=== PATIENT | female | born 1970 | race Caucasian/White ===

== ENCOUNTER 2017-05-11 12:44 | Emergency (ER) | payer OTHER ==
--- NOTE | 2017-05-11 13:24 | UC ---
Upper Extremity HPI - HPI Summary HPI Summary: Pt presents with upper back pain and right shoulder pain that started 4 days ago. She tells me that 4 days ago she woke up and had upper back pain and right shoulder pain. Denies injury. She has not been using her right arm much due to this pain. She tells me she has a history of low back pain and sees a neurosurgeon in [place] for this, but no history of cervical or shoulder pain. She is currently taking neurontin, tramadol, zanaflex, and meloxicam for pain in her lower back, but these are not helping her current upper back/shoulder discomfort. She also complains of right elbow pain, but feels this could be nerve related from "something in her neck". She is experiencing numbness and tingling down her right arm. Denies fever, chills, SOB, chest pain, headache, or dizziness. - History of Current Complaint Stated Complaint: RIGHT ARM COMPLAINT Time Seen by Provider: 05/11/17 13:23 Hx Obtained From: Patient Hx Last Menstrual Period: 3yrs ?: No Onset/Duration: Gradual Onset Severity Initially: Moderate Severity Currently: Severe Pain Intensity: 8 Pain Scale Used: 0-10 Numeric Character: Sharp Aggravating Factor(s): Movement, Lifting, Flexion, Extension, Internal/External Rotation, Abduction, Adduction Alleviating Factor(s): Nothing - Allergies/Home Medications Allergies/Adverse Reactions: Allergies Allergy/AdvReac Type Severity Reaction Status Date / Time No Known Allergies Allergy Verified 05/11/17 13:25 Home Medications: Home Medications FLUoxetine CAP* [PROzac CAP*] 40 mg PO BEDTIME 05/11/17 [History Confirmed 05/11] Gabapentin CAP(*) [Neurontin 100 mg CAP(*)] 100 mg PO TID 05/11/17 [History Confirmed 05/11/17] tiZANidine TAB* [Zanaflex TAB*] 2 mg PO TID PRN 05/11/17 [History Confirmed 11/20] traZODone TAB* [Desyrel TAB*] 50 mg PO BEDTIME 05/11/17 [History Confirmed 05/11] PMH/Surg Hx/FS Hx/Imm Hx - Additional Past Medical History Additional PMH: Low back pain Previously Healthy: Yes - Surgical History Surgical History: Yes Surgery Procedure, Year, and Place: APPY. PARTIAL HYSTERECTOMY. LEFT OOPHERECTOMY. KNEE MENISCUS REPAIR--RIGHT. CARPAL TUNNEL--RIGHT WRIST - Family History Known Family History: Positive: Unknown - Social History Alcohol Use: None Substance Use Type: None Smoking Status (MU): Current Every Day Smoker Type: Cigarettes Amount Used/How Often: 4 CIGS PER DAY Length of Time of Smoking/Using Tobacco: 28 YRS Have You Smoked in the Last Year: Yes Cessation Counseling: Counseled 3+Min - 10 Min Review of Systems Constitutional: Negative Skin: Negative Eyes: Negative ENT: Negative Respiratory: Negative Cardiovascular: Negative Musculoskeletal: Decreased ROM - Right shoulder, Other: - Pain right shoulder and elbow. Pain upper back. Neurological: Weakness - Right arm, Paresthesia - Right arm, Numbness - Right arm Psychological: Negative All Other Systems Reviewed And Are Negative: Yes Physical Exam Triage Information Reviewed: Yes Completion Of Physical Exam Limited Due To: Other - Pain. Appearance: Well-Appearing, Well-Nourished Vital Signs Reviewed: Yes Neck: Positive: Supple, No Lymphadenopathy, Other: - FROM. NTTP. No cervical tenderness. Respiratory: Positive: Chest non-tender, Lungs clear, Normal breath sounds, No respiratory distress, No accessory muscle use Cardiovascular: Positive: RRR, No Murmur, Pulses Normal Musculoskeletal: Positive: No Edema, Strength Limited @ - Right shoulder 3/5 compared to left., ROM Limited @ - Right shoulder: Can flex to 90deg before pain. Passive motion to 110deg., Other: - Right shoulder: No edema or obvious bony deformities. Positive apprehension, empty can, enriquez-tati, near, o lobo, and yergason tests - pain with every test in varying anatomical locations of the right shoulder. Positive spurlings test. Positive tinel sign in right cubital tunnel. 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 FROM right wrist and all digits. TTP over right trapezius with multiple trigger points. Neurological: Positive: Alert, Muscle Tone Normal, Other: - Sensations intact C4 -T1 right UE. Psychological: Positive: Age Appropriate Behavior Skin: Negative: rashes, significant lesion(s) Upper Extremity Course/Dx - Course Course Of Treatment: Shoulder and cerivcal XR today: Osteoarthritis and DEGENERATIVE DISC DISEASE AND OSTEOARTHRITIS MOST PRONOUNCED AT C5-C6 AND C6- C7. Pt is currently taking all the appropriate pain medications for this condition. She would like to try a sling for a few days to see if this improves her pain. She would also like a referral to a new neurosurgeon as her current one in [place] is not returning her calls. - Differential Dx/Diagnosis Differential Diagnosis/HQI/PQRI: Strain, Sprain Provider Diagnoses: Cervical radiculopathy. Right shoulder pain. Neck pain Discharge - Discharge Plan Condition: Stable Disposition: HOME Patient Education Materials: Cervical Strain (ED), Neck Pain (ED) Referrals: Tremaine Munson [Primary Care Provider] - Eleanor Parker MD [Medical Doctor] - As Soon As Possible Additional Instructions: If you develop a fever, SOB, chest pain, new or worsening symptoms - please call your PCP or go to the ED. Please use the shoulder sling if you are active and outdoors. Please remove the sling and use your shoulder/arm as tolerated when at home. Please call the number below to schedule an appointment with our neurosurgeon RUTH.
[2017-05-11 13:39] VITALS: BP 129/72
--- NOTE | 2017-05-11 14:18 | RAD ---
HISTORY: Right shoulder pain COMPARISONS: June 05, 2014 VIEWS: 4, Frontal internal rotation, external rotation, outlet, and axillary views of the right shoulder FINDINGS: BONE DENSITY: Normal. BONES: There is no displaced fracture. JOINTS: There is moderate osteoarthritis of the right AC joint ALIGNMENT: There is no dislocation. SOFT TISSUES: Unremarkable. OTHER FINDINGS: None. IMPRESSION: OSTEOARTHRITIS. NO ACUTE OSSEOUS INJURY. IF SYMPTOMS PERSIST, RECOMMEND REPEAT IMAGING.
--- NOTE | 2017-05-11 14:20 | RAD ---
HISTORY: Pain, right arm pain, right shoulder pain COMPARISONS: June 05, 2014 VIEWS: 5, Frontal, lateral, open-mouth odontoid, and bilateral oblique views of the cervical spine. FINDINGS: The cervical spine is visualized from the skull base through C7-T1. ALIGNMENT: There is straightening of the normal cervical lordosis. VERTEBRAL BODIES: There is anterolateral marginal osteophyte formation at C5-C6 and C6-C7. JOINTS: There is mild diffuse uncovertebral and facet osteoarthritis. There is no significant osseous neural foraminal narrowing on the left on the oblique views. There is moderate right neural foraminal narrowing at C6-C7. Positioning. INTERVERTEBRAL DISCS: There is diffuse loss of intervertebral disc height. SOFT TISSUE: The prevertebral soft tissues are normal. OTHER: The skull base is normal. The lung apices are clear. There has been progression compared to June 05, 2014 IMPRESSION: DEGENERATIVE DISC DISEASE AND OSTEOARTHRITIS MOST PRONOUNCED AT C5-C6 AND C6-C7
== END 2017-05-11 14:45 | disposition home or self-care (01) ==
LOC: UCCORT 12:44
DX: M54.12 Radiculopathy, cervical region (principal); M25.511 Pain in right shoulder; M54.2 Cervicalgia; Z90.711 Acquired absence of uterus with remaining cervical stump; Z90.721 Acquired absence of ovaries, unilateral; Z71.6 Tobacco abuse counseling; F17.210 Nicotine dependence, cigarettes, uncomplicated
CPT/HCPCS: 72050; 99212; G0463

== ENCOUNTER 2017-08-27 11:07 | Emergency (ER) | payer OTHER ==
[2017-08-27 11:55] VITALS: BP 127/66
--- NOTE | 2017-08-27 12:38 | UC ---
Complaint Female HPI - HPI Summary HPI Summary: Pt reports that she has had recent c/o of vaginal bleeding since beginning new second job and since have hysterectomy. Pt is concerned that she may have a UTI. Pt c/o frequency, urgency and pelvic discomfort. - History Of Current Complaint Chief Complaint: UCGU Stated Complaint: URINARY/BACK PAIN Time Seen by Provider: 08/27/17 11:57 Hx Obtained From: Patient Hx Last Menstrual Period: 3yrs ?: No Onset/Duration: Gradual Onset, Lasting Days, Still Present Timing: Constant Severity Initially: Mild Severity Currently: Mild Pain Intensity: 9 Character: Dull, Burning Aggravating Factor(s): Urination Alleviating Factor(s): Nothing Associated Signs And Symptoms: Positive: Back Pain, Vaginal Bleeding/Discharge - Risk Factors Ectopic Risk Factor: Prior Pelvic Surgery Ovarian Torsion Risk Factor: Hysterectomy - Allergies/Home Medications Allergies/Adverse Reactions: Allergies Allergy/AdvReac Type Severity Reaction Status Date / Time No Known Allergies Allergy Verified 05/11/17 13:25 PMH/Surg Hx/FS Hx/Imm Hx Previously Healthy: Yes - Surgical History Surgical History: Yes Surgery Procedure, Year, and Place: APPY. TOTAL HYSTERECTOMY. LEFT OOPHERECTOMY. KNEE MENISCUS REPAIR--RIGHT. CARPAL TUNNEL--RIGHT WRIST. bladder sling - Family History Known Family History: Positive: Unknown - Social History Occupation: Employed Full-time Lives: With Family Alcohol Use: None Substance Use Type: None Smoking Status (MU): Current Every Day Smoker Type: Cigarettes Amount Used/How Often: 1/2 PPD Length of Time of Smoking/Using Tobacco: 28 YRS Have You Smoked in the Last Year: Yes When Did the Patient Quit Smoking/Using Tobacco: 6 DAYS AGO Household Exposure Type: Cigarettes Review of Systems Constitutional: Negative Skin: Negative Eyes: Negative ENT: Negative Respiratory: Negative Cardiovascular: Negative Gastrointestinal: Negative Genitourinary: Frequency, Urgency Motor: Negative Neurovascular: Negative Musculoskeletal: Negative Neurological: Negative Psychological: Negative Is Patient Immunocompromised?: No All Other Systems Reviewed And Are Negative: Yes Physical Exam Triage Information Reviewed: Yes Appearance: Well-Appearing Vital Signs: Initial Vital Signs Temp 98.3 F 08/27/17 11:43 Pulse 68 08/27/17 11:43 Resp 16 08/27/17 11:43 BP 127/66 08/27/17 11:43 Pulse Ox 99 08/27/17 11:43 Vital Signs Reviewed: Yes Eye Exam: Normal ENT Exam: Normal Neck exam: Normal Respiratory Exam: Normal Cardiovascular Exam: Normal Abdominal Exam: Normal Musculoskeletal Exam: Normal Neurological Exam: Normal Psychological Exam: Normal Skin Exam: Normal Complaint Female Dx - Differential Dx/Diagnosis Differential Diagnosis/HQI/PQRI: Urinary Tract Infection, Other - dysuria Provider Diagnoses: dysuria Discharge - Sign-Out/Discharge Documenting (check all that apply): Discharge - Discharge Plan Condition: Stable Disposition: HOME Prescriptions: Cephalexin CAP* [Keflex 500 CAP*] 500 mg PO Q8H #21 cap Phenazopyridine TAB* [Pyridium 100 mg TAB*] 100 mg PO Q8H #12 tab Patient Education Materials: Dysuria (ED) Forms: *Work Release Referrals: SURAJ Montez [Primary Care Provider] - Additional Instructions: Please follow up with your OB-Rn Case Mgr provider as soon as possible. [facility] [address] Manpreet Ceja [address] [place] [address] Appointment Hours: 7am to 4:30pm Mon-Fri Office Hours: 8am to 5pm Mon Fri - Billing Disposition and Condition Condition: STABLE Disposition: HOME
== END 2017-08-27 12:53 | disposition home or self-care (01) ==
LOC: UCCORT 11:07
DX: R30.0 Dysuria (principal); Z87.891 Personal history of nicotine dependence
CPT/HCPCS: 81003; 99212; G0463

== ENCOUNTER 2017-12-24 12:06 | Emergency (ER) | payer OTHER ==
[2017-12-24 12:46] VITALS: BP 121/72
--- NOTE | 2017-12-24 12:49 | UC ---
UC General HPI - HPI Summary HPI Summary: pt c/o a sore throat for 1 week and a swollen tender gland in her L side of neck. she reports a subjective fever. the past 3 days, she has had about 3 bouts of watery diarrhea daily and some nausea. no blood in stool, sick contacts , travel hx, recent antibiotic use or IBD. also no abdominal pain. - History of Current Complaint Chief Complaint: UCGI Stated Complaint: DIARRHEA, ST Time Seen by Provider: 12/24/17 12:43 Hx Obtained From: Patient Hx Last Menstrual Period: 3yrs Onset/Duration: Gradual Onset Aggravating: nothing Alleviating: nothing Associated Signs & Symptoms: Positive: Diarrhea, Fever, Nausea. Negative: Abdominal Pain, Vomiting - Allergy/Home Medications Allergies/Adverse Reactions: Allergies Allergy/AdvReac Type Severity Reaction Status Date / Time No Known Allergies Allergy Verified 12/24/17 12:39 PMH/Surg Hx/FS Hx/Imm Hx - Additional Past Medical History Additional PMH: insomnia. chronic back pain Psychological History: Anxiety, Depression - Surgical History Surgical History: Yes Surgery Procedure, Year, and Place: APPY. TOTAL HYSTERECTOMY. LEFT OOPHERECTOMY. KNEE MENISCUS REPAIR--RIGHT. CARPAL TUNNEL--RIGHT WRIST. bladder sling - Family History Known Family History: Positive: Unknown - Social History Occupation: Employed Full-time Alcohol Use: None Substance Use Type: None Smoking Status (MU): Current Every Day Smoker Type: Cigarettes Amount Used/How Often: 1/2 PPD Length of Time of Smoking/Using Tobacco: 28 YRS Have You Smoked in the Last Year: Yes When Did the Patient Quit Smoking/Using Tobacco: 6 DAYS AGO Household Exposure Type: Cigarettes - Immunization History Vaccination Up to Date: Yes Review of Systems Constitutional: Fever Skin: Negative Eyes: Negative ENT: Sore Throat Respiratory: Negative Cardiovascular: Negative Gastrointestinal: Diarrhea, Nausea Genitourinary: Negative Motor: Negative Neurovascular: Negative Musculoskeletal: Negative Neurological: Negative Psychological: Negative Is Patient Immunocompromised?: No All Other Systems Reviewed And Are Negative: Yes Physical Exam Triage Information Reviewed: Yes Appearance: Well-Appearing Vital Signs Reviewed: Yes Eyes: Positive: Conjunctiva Clear ENT: Positive: Pharyngeal erythema, TMs normal, Uvula midline, Other - No stridor. Negative: Nasal congestion, Nasal drainage, Trismus, Muffled voice, Hoarse voice Neck: Positive: Supple, Tenderness @ - L anterior cervical node, Enlarged Nodes @ - L anterior cervical node Respiratory: Positive: Lungs clear, Normal breath sounds Cardiovascular: Positive: RRR, No Murmur Abdomen Description: Positive: Nontender, No Organomegaly, Soft Bowel Sounds: Positive: Present Musculoskeletal: Positive: ROM Intact Neurological: Positive: Alert Psychological: Positive: Age Appropriate Behavior Skin Exam: Normal Course/Dx - Course Course Of Treatment: Nontoxic. Mild erythema of the pharynx on exam the left anterior cervical adenopathy; however, rapid strep is negative. Given sore throat of 7 days we will send throat culture. No concern for abscess. Given the rapid strep is negative, treatment is supportive at this time. Patient does have several year history of smoking thus need for close follow-up to ensure resolution of sore throat and swollen gland stressed. Again patient is nontoxic. She has no acute abdomen. She has no risk for traveler's diarrhea or C. difficile colitis. Since the diarrhea is only been for 3 days no indication for cultures. Given the associated nausea and sore throat this is most likely part of a viral syndrome; however, again the need for close follow up recheck with stressed. - Differential Dx - Multi-Symptom Provider Diagnoses: Pharyngitis. Nausea. Diarrhea. Discharge - Sign-Out/Discharge Documenting (check all that apply): Patient Departure - Discharge Plan Condition: Stable Disposition: HOME Patient Education Materials: Pharyngitis (ED), Acute Diarrhea (ED) Referrals: Claudia Rosas PA [Primary Care Provider] - 5 Days - Billing Disposition and Condition Condition: STABLE Disposition: Home
== END 2017-12-24 13:08 | disposition home or self-care (01) ==
LOC: UCCORT 12:06
DX: J02.9 Acute pharyngitis, unspecified (principal); R11.0 Nausea; R19.7 Diarrhea, unspecified; Z87.891 Personal history of nicotine dependence
CPT/HCPCS: 87070; 87077; 87186; 87651; 99211; G0463

== ENCOUNTER 2019-01-02 11:28 | Emergency (ER) | payer OTHER ==
--- OUTSIDE RECORDS SUMMARY | 2019-01-02 12:31 | XMS REPORT | Continuity of Care Document ---
:1970 External Reference #:[id number] Author Name Poncho Garsia N.P. Address [address] [place] [address] Care Team Providers Name Role Phone Jose Elmore MD Care Team Information Postdoctoral Research Associate Unavailable Payers Date Identification Numbers Payment Provider Subscriber Policy Number: [id number] [facility] Santosh Walton PayID: [id number] [address] [place] [address] Effective: 2016 Policy Number: [id number] [facility] Tamia Walton Expires: 2017 [address] [address] [place] [address] Problems Active Problems Provider Date Arthralgia of the lower leg Tremaine Shukla BUSINESS UNIT DIRECTOR Onset: 07/18/2013 Tobacco user Tremaine Shukla BUSINESS UNIT DIRECTOR Onset: 08/01/2013 Recurrent depression Margareth Butts FNP Onset: 01/25/2014 Anxiety Margareth Butts FNP Onset: 01/25/2014 Seasonal allergic rhinitis Margareth Butts FNP Onset: 01/25/2014 Insomnia Margareth Butts FNP Onset: 04/01/2014 Atopic dermatitis Jose Elmore M.D. Onset: 09/02/2014 Endometriosis of pelvic peritoneum Jose Elmore M.D. Onset: 09/02/2014 Vaginitis and vulvovaginitis Jose Elmore M.D. Onset: 09/02/2014 Inactive Problems Nonspecific abdominal symptom Tremaine Shukla BUSINESS UNIT DIRECTOR Onset: 08/01/2013 Inactive: 01/25/2014 Resolved Problems Polyuria Tremaine Shukla BUSINESS UNIT DIRECTOR Onset: 07/18/2013 Resolved: 08/01/2013 Family History Date Family Member(s) Observation Comments Father 67 Father Diabetes Father Hypertension Mother 69 Mother Breast Cancer SURVIVOR Children 2 First Daughter 19 First Daughter No Current Problems Second Daughter 22 Second Daughter No Current Problems First Brother Age is Unknown First Brother No Current Problems First Sister Age is Unknown First Sister No Current Problems Social History Type Date Description Comments Sex Unknown Marital Status Has been 1 time Occupation Occupation [employer] WORK Work Status Full-Time Employment ETOH Use Denies alcohol use Tobacco Use Start: Unknown Patient is a current SMOKES LESS THAN HALF smoker, smokes every A PACK A DAY day Recreational Drug Use Former Drug User TRIED MARIJUANA AT AGE 16 Smoking Status Reviewed: 11/29/18 Patient is a current SMOKES LESS THAN HALF smoker, smokes every A PACK A DAY day Allergies, Adverse Reactions, Alerts Description No Known Drug Allergies Medications Active Medications SIG Qnty Indications Ordering Date Provider Claritin 1 by mouth every 30caps H69.83 Jose Elmore, 12/27/2018 10mg Capsules day M.D. Gentamicin Sulfate 2 drop both eyes 5ml H00.025 Jose Elmore, 2018 0.3% four times a day M.D. Solution X10 Days Nicotrol inhale one by 168units F17.210 Jose Elmore, 11/29/2018 10mg Inhaler mouth every 4 M.D. hours as needed Nortriptyline HCL 1 cap by mouth 30caps M51.37 Jose Elmore, 11/29/2018 75mg at bedtime M.D. Capsules Sumatriptan Succinate Take 1 Tablet By 14tabs G43.101 Jose Elmore, Mouth as Needed M.D. 50mg Tablets For Headache May Repeat 1 Time If No Relief In 2 Hours Ondansetron HCL take one tablet 30tabs R11.0 Jose Elmore, 10/16/2018 4mg by mouth every 4 M.D. Tablets hours as needed (maximum daily dose=6) Proair HFA inhale 2 puffs 17gm J20.9 Jose Elmore, 07/17/2018 108(90Base) by mouth every 4 M.D. mcg/Act Aerosol hours if needed Pennsaid apply to elbow M54.2 Jose Elmore, 06/13/2018 2% Solution and knees bid M.D. M25.569 M79.639 Gabapentin 1 tab by mouth 90tabs M54.2 [facility] oumou Martinez., 06/13/2018 600mg Tablets three times a day M.D. M79.639 M79.606 Yuvafem 1 vaginal every day 30tabs N89.8 [facility] , 06/13/2018 10mcg Tablets M.D. Omeprazole 1 by mouth every day 30caps K21.0 [facility] , 06/13/[address] Fluoxetine HCL take 2 capsules at 180caps F41.9 [facility], 2016 20mg bedtime M.D. Capsules F33.9 Tramadol HCL 1 tab by mouth bid 60tabs M51.37 [facility] , 12/30/2016 50mg Tablets as needed M.D. M79.639 M54.2 Tizanidine HCL 1 by mouth three 90tabs M25.519 [facility], 11/19/2016 4mg Tablets times a day as M.D. needed M79.639 M54.2 History Medications Azithromycin 1 tab by mouth 10tabs J20.9 [facility] 12/04/2018 - 500mg every day x 10 M., M.D. 12/03/2018 Tablets days Azithromycin z jd uad 6tabs J20.9 [facility] 12/04/2018 - 250mg M., M.D. 12/25/2018 Tablets Claritin 1 by mouth every 30tabs J02.9 [facility] 12/04/2018 - 10mg Tablets day M., M.D. 12/25/2018 Amoxicillin/Clavulan 1 tab by mouth 30tabs H66.93 [facility] 10/16/2018 - ate Potassium twice a day M., M.D. 11/29/2018 875-125mg Tablets Ibuprofen take one tablet by 90tabs G43.101 [facility] 10/16/2018 - 600mg mouth three times M., M.D. 12/25/2018 Tablets daily with food as Needed For Headache Imitrex one tab by mouth 14tabs G43.101 [facility] 10/16/2018 - 50mg Tablets as needed M., M.D. 10/26/2018 headache, may repeat x 1 if no relief in 2 hours. Amoxicillin/Clavulan 1 tab by mouth 30tabs J20.9 [facility], [facility] 07/26/2018 - ate Potassium twice a day M., M.D. 10/15/2018 875-125mg Tablets Amoxicillin/Clavulan 5ml by mouth twice 125ml H66.93 [facility], [facility] 2018 - ate Potassium a day x 7 days M., M.D. 10/15/2018 strawberry 600-42.9mg/5ML flavoring if Suspension Rec possible Trazodone HCL 1 tab by mouth 30tabs G47.00 [facility], [facility] 06/13/2018 - 50mg every night M., M.D. 11/28/2018 Tablets Prednisone 3 tab by mouth 18tabs [facility], [facility] 05/16/2018 - 20mg daily 3 days, then M., M.D. 05/25/2018 Tablets 2 tab daily x 3 d , then 1 tab daily 3d Azithromycin z jd uad 6tabs [facility] 03/23/2018 - 250mg M., M.D. 03/27/2018 Tablets Cipro 1 tab by mouth 20tabs [facility] 03/10/2018 - 500mg Tablets twice a day M., M.D. 03/20/2018 Prednisone 2 tab by mouth 8tabs [facility] 03/10/2018 - 20mg daily 4 days M., M.D. 03/16/2018 Tablets Prednisone 2 tab by mouth 8tabs [facility] 03/07/2018 - 20mg daily 4 days M., M.D. 03/10/2018 Tablets Amoxicillin 2 by mouth twice a 40tabs [facility] 03/07/2018 - 500mg day M., M.D. 03/10/2018 Tablets Meloxicam take one tablet by 90tabs M54.5 [facility] 05/02/2017 - 15mg mouth once daily M., M.D. 12/26/2018 Tablets M25.519 M54.2 Fluticasone use two spray(s) 16gm [facility] 05/02/2017 - Propionate in each nostril M., M.D. 10/15/2018 50mcg/Act once daily as Suspension needed for allergy relief Ciprofloxacin HCL tab one by mouth 20tabs [facility] 04/01/2017 - 500mg twice a day M., M.D. 04/11/2017 Tablets Cheratussin ac teaspoon 1 every 4 150units [facility] 04/01/2017 - hours as needed M., M.D. 04/11/2017 100-10mg/5ML Syrup Azithromycin Take Two Tablets 6tabs [facility] 03/09/2017 - 250mg By Mouth On Day 1, M., M.D. 03/14/2017 Tablets And Then Take One Tablet By Mouth Once A Day For Days 2-5 Azithromycin take two tablets 6tabs H66.92 [facility] 02/28/2017 - 250mg by mouth as one M., M.D. 03/05/2017 Tablets dose on the first day then take one daily thereafter x 4 days Amoxicillin 2 by mouth twice a 40tabs [facility] 11/11/2016 - 500mg day M., M.D. 11/21/2016 Tablets Prednisone 2 tab by mouth 20tabs [facility] 11/11/2016 - 20mg Tablets daily 4 M., M.D. 11/27/2016 days,30x3d,20x2d,1 0x7d Prozac Take 2 Capsules AT 180caps F41.9 [facility] 10/25/2016 - 20mg Capsules Bedtime M., M.D. 01/24/2017 F33.9 Prednisone 2 tab by mouth 8tabs [facility] 08/24/2016 - 20mg Tablets daily 4 days M., M.D. 08/27/2016 Amoxicillin 2 by mouth 40tabs [facility] 08/24/2016 - 500mg Tablets twice a day M., M.D. 09/02/2016 Prednisone 3 tab by mouth 18tabs M25.562 [facility] 05/27/2016 - 20mg Tablets daily 3 days, M., M.D. 06/03/2016 then 2 tab daily x 3 d , then 1 tab daily 3d Hydrocodone-Acetaminophen 1-2 tab by 60tabs M25.562 [facility] 2015 - mouth every 4 M., M.D. 06/14/2016 7.5-325mg Tablets hours as needed Azithromycin 1 by mouth 7tabs [facility], [facility] 03/18/2016 - 500mg Tablets every day M., M.D. 03/25/2016 Prednisone 2 tab by mouth 20tabs [facility] 03/18/2016 - 20mg Tablets daily 4 M., M.D. 04/03/2016 days,30x3d,20x2 d,10x7d Cheratussin ac 2 teaspoon by 473ml [facility] 03/18/2016 - 100-10mg/5ML Syrup mouth every 4 M., M.D. 04/03/2016 hours as needed Biaxin 1 by mouth 20tabs J01.80 [facility] 03/08/2016 - 500mg Tablets twice a day M., M.D. 03/18/2016 Methylprednisolone use as directed 1pak R06.2 [facility] 03/08/2016 - 4mg TBPK on package M., M.D. 06/14/2016 Meloxicam take one tablet 60tabs M54.5 [facility] 02/23/2016 - 7.5mg Tablets by mouth twice M., M.D. 05/02/2017 daily M25.519 M54.2 Prednisone 2 tab by mouth 8tabs [facility] 11/21/2015 - 20mg Tablets daily 4 days M., M.D. 11/25/2015 Amoxicillin 2 by mouth twice 40tabs [facility], [facility] 11/21/2015 - 500mg a day M., M.D. 12/01/2015 Tablets Amoxicillin 2 by mouth twice 40tabs [facility] 05/22/2015 - 500mg a day M., M.DDavidson 11/20/2015 Tablets Flonase Allergy two sprays per 16gm J30.9 [facility] 05/22/2015 - Relief nostril once a M.VenkatDDavidson 01/14/2017 50mcg/Act day as needed for Suspension allergy relief R09.81 Meloxicam 1 by mouth 90tabs M25.579 [facility] MDavidson, 05/22/2015 - 15mg every day M.DDavidson 05/14/2016 Tablets M54.5 M54.2 Tobramycin 2 drops both eyes 10ml H10.45 [facility], [facility] 05/22/2015 - 0.3% three times a day M.Michelle.DDavidson 05/29/2015 Solution Tobramycin 2 drops both eyes 5ml 372.39 [facility], [facility] 10/10/2014 - 0.3% three times a day M.VenkatDDavidson 10/15/2014 Solution Estrace insert 06/07 42.500gm N76.1 [facility] 09/05/2014 - 0.1mg/GM applicator MVenkat CedeñoDDavidson 01/14/2017 Cream vaginallytiw Estradiol Apply 06/07 Applicator 616.10 [facility] 09/04/2014 - 0.5mg Tiw M.VenkatDDavidson 09/04/2014 Tablets Chantix 1 by mouth twice a 60tabs 305.1 [facility] 09/02/2014 - 1mg day M.VenkatDDavidson 11/02/2014 Tablets Estrogel apply 06/07 applicator 50gm 616.10 [facility] 09/02/2014 - tiw M. M.DDavidson 09/05/2014 0.75mg/1.25 GM (0.06%) Gel Diflucan 1 by mouth twice a 60tabs 616.10 [facility] 09/02/2014 - 100mg day M.VenkatDDavidson 10/03/2014 Tablets Continue Cervical two-three times a [facility] 07/19/2014 - Neck PT week modalities as Dennis Robledo 06/14/2016 needed dx+ cervicalgia Tizanidine HCL 1 by mouth three 90tabs M54.2 [facility] 06/17/2014 - times a day as M., M.D. 06/14/2016 4mg Tablets needed M25.519 M79.639 Hydrocodone-Acetaminophen 1-2 tab by 45tabs M54.2 [facility] 06/17/2014 - 5-325mg Tablets mouth every M., M.D. 2015 4 hours as needed M25.519 M79.643 Dextromethorphan-Guaifenesin Take 2 tsp by 200ml [facility] 03/27/2014 - 20-200mg/10ML mouth every [facility] 06/09/2014 Solution 4hrs as needed Aurodex 4 drops 1bottle 381. [facility] 02/21/2014 - 5.4-1.4% Solution instilled [facility] 03/06/2014 into affected ear up to 4 times a day as needed. once instilled, insert cotton ball into ear Amoxicillin take 1 tablet 20tabs 381. [facility] 02/21/2014 - 875mg Tablets by mouth two 00 [facility] 03/06/2014 times a day for 10 days Out Of Work Please excuse Benjamín 02/21/2014 - Tamia from [facility] 06/09/2014 work on 02/20 and 02/21/2014 for an illness. Thanks Meloxicam 1 by mouth 30tabs M25. Jose Elmore 01/25/2014 - 7.5mg Tablets every day 569 M., M.D. 05/22/2015 M25.579 Trazodone HCL Take 1-2 tablets 90tabs 300.00 Margareth Butts 01/25/2014 - at night [facility] 01/14/2015 50mg Tablets 296.30 780.52 Flonase two sprays per 16gm J30.9 Jose Elmore 01/04/2014 - 50mcg/Act nostril once a M.D. 05/22/2015 Suspension day as needed for allergy relief R09.81 Metronidazole 1 tab po bid x7 20tabs 616.10 Jose Elmore 10/02/2013 - 500mg days M., M.D. 10/09/2013 Tablets Diflucan 1 tab po today 2tabs 616.10 Jose Elmore 09/28/2013 - 150mg Tablets and repeat in 3 M., M.D. 10/01/2013 days Trazodone HCL 1 tab by mouth 300.00 Unknown - 20mg every night 01/25/2014 Tablets Meloxicam 1 by mouth 719.46 Unknown - 7.5 Tablets every day 01/25/2014 Naproxen 1 tab by mouth Unknown - 500mg Tablets twice a day as 08/05/2013 needed on hold while taking Meloxicam) Fluoxetine HCL tab 2 by mouth 180caps F41.9 Jose Elmore - 20mg every at M., M.D. 10/25/2016 Capsules bedtime F33.9 Immunizations CPT Code Status Date Vaccine Lot # 32289 Given 06/17/2014 Flu Vaccine [id number] Refused 05/17/2014 Flu Vaccine Vital Signs Date Vital Result Comment 12/27/2018 8:48am BP Systolic 116 mmHg BP Diastolic 64 mmHg Height 60.75 inches 5'0.75" Weight 146.00 lb BMI (Body Mass Index) 27.8 kg/m2 Heart Rate 86 /min Respiratory Rate 18 /min 12/04/2018 10:52am BP Systolic 132 mmHg BP Diastolic 80 mmHg Height 60.75 inches 5'0.75" Weight 143.00 lb BMI (Body Mass Index) 27.2 kg/m2 Heart Rate 78 /min Body Temperature 98.6 F Respiratory Rate 16 /min 11/29/2018 8:37am BP Systolic 126 mmHg BP Diastolic 72 mmHg Height 60.75 inches 5'0.75" Weight 143.00 lb BMI (Body Mass Index) 27.2 kg/m2 Heart Rate 67 /min Respiratory Rate 18 /min 11/01/2018 8:40am BP Systolic 130 mmHg BP Diastolic 78 mmHg Height 60.75 inches 5'0.75" Weight 144.00 lb BMI (Body Mass Index) 27.4 kg/m2 Heart Rate 63 /min Respiratory Rate 16 /min 10/16/2018 1:46pm BP Systolic 118 mmHg BP Diastolic 72 mmHg Height 60.75 inches 5'0.75" Weight 146.00 lb BMI (Body Mass Index) 27.8 kg/m2 10/05/2018 10:01am BP Systolic 124 mmHg BP Diastolic 64 mmHg Height 60.75 inches 5'0.75" Weight 146.00 lb BMI (Body Mass Index) 27.8 kg/m2 Heart Rate 72 /min Respiratory Rate 16 /min 07/26/2018 12:55pm BP Systolic 124 mmHg BP Diastolic 70 mmHg Height 60.75 inches 5'0.75" Weight 147.00 lb BMI (Body Mass Index) 28.0 kg/m2 Heart Rate 64 /min Body Temperature 97.9 F Respiratory Rate 16 /min 07/17/2018 10:56am BP Systolic 146 mmHg BP Diastolic 68 mmHg Height 60.75 inches 5'0.75" Weight 145.00 lb BMI (Body Mass Index) 27.6 kg/m2 Heart Rate 83 /min Body Temperature 98.2 F Respiratory Rate 16 /min 07/04/2018 1:20pm BP Systolic 132 mmHg BP Diastolic 68 mmHg Height 60.75 inches 5'0.75" Weight 142.00 lb BMI (Body Mass Index) 27.0 kg/m2 Heart Rate 91 /min Respiratory Rate 18 /min 06/13/2018 1:02pm BP Systolic 126 mmHg BP Diastolic 62 mmHg Height 60.75 inches 5'0.75" Weight 143.00 lb BMI (Body Mass Index) 27.2 kg/m2 Heart Rate 67 /min Respiratory Rate 16 /min 05/16/2018 12:56pm BP Systolic 144 mmHg BP Diastolic 72 mmHg Height 60.75 inches 5'0.75" Weight 141.00 lb BMI (Body Mass Index) 26.9 kg/m2 Heart Rate 67 /min Respiratory Rate 14 /min 03/23/2018 3:35pm BP Systolic 132 mmHg BP Diastolic 70 mmHg Height 60.75 inches 5'0.75" Weight 140.00 lb BMI (Body Mass Index) 26.7 kg/m2 Heart Rate 66 /min Body Temperature 98.4 F Respiratory Rate 16 /min 03/07/2018 8:51am BP Systolic 126 mmHg BP Diastolic 68 mmHg Height 60.75 inches 5'0.75" Weight 139.00 lb BMI (Body Mass Index) 26.5 kg/m2 Heart Rate 71 /min Respiratory Rate 14 /min 06/17/2017 11:18am BP Systolic 110 mmHg BP Diastolic 62 mmHg Height 60.75 inches 5'0.75" Weight 141.00 lb BMI (Body Mass Index) 26.9 kg/m2 Heart Rate 82 /min Respiratory Rate 16 /min 06/03/2017 10:36am BP Systolic 110 mmHg BP Diastolic 60 mmHg Height 60.75 inches 5'0.75" Weight 136.00 lb BMI (Body Mass Index) 25.9 kg/m2 Heart Rate 70 /min Respiratory Rate 16 /min 05/26/2017 8:28am BP Systolic 104 mmHg BP Diastolic 60 mmHg Height 60.75 inches 5'0.75" Weight 137.00 lb BMI (Body Mass Index) 26.1 kg/m2 Heart Rate 94 /min Respiratory Rate 16 /min 05/12/2017 11:05am BP Systolic 130 mmHg BP Diastolic 64 mmHg Height 60.75 inches 5'0.75" Weight 138.00 lb BMI (Body Mass Index) 26.3 kg/m2 Heart Rate 82 /min Respiratory Rate 16 /min 04/01/2017 1:55pm BP Systolic 100 mmHg BP Diastolic 60 mmHg Height 60.75 inches 5'0.75" Weight 137.00 lb BMI (Body Mass Index) 26.1 kg/m2 Heart Rate 67 /min Body Temperature 97.2 F Respiratory Rate 16 /min 02/28/2017 8:59am BP Systolic 128 mmHg BP Diastolic 68 mmHg Height 60.75 inches 5'0.75" Weight 132.00 lb BMI (Body Mass Index) 25.1 kg/m2 Heart Rate 76 /min Body Temperature 99.3 F Respiratory Rate 18 /min 02/14/2017 9:05am BP Systolic 124 mmHg BP Diastolic 70 mmHg Height 60.75 inches 5'0.75" Weight 132.00 lb BMI (Body Mass Index) 25.1 kg/m2 Heart Rate 74 /min Respiratory Rate 18 /min 02/04/2017 2:07pm BP Systolic 124 mmHg BP Diastolic 60 mmHg Height 60.75 inches 5'0.75" Weight 132.00 lb BMI (Body Mass Index) 25.1 kg/m2 Heart Rate 80 /min Respiratory Rate 16 /min 01/26/2017 8:43am BP Systolic 126 mmHg BP Diastolic 72 mmHg Height 60.75 inches 5'0.75" Weight 137.00 lb BMI (Body Mass Index) 26.1 kg/m2 Heart Rate 68 /min Respiratory Rate 18 /min 01/12/2017 9:17am BP Systolic 126 mmHg BP Diastolic 68 mmHg Height 60.75 inches 5'0.75" Weight 131.00 lb BMI (Body Mass Index) 25.0 kg/m2 Heart Rate 80 /min Respiratory Rate 16 /min 12/30/2016 9:36am BP Systolic 134 mmHg BP Diastolic 66 mmHg Height 60.75 inches 5'0.75" Weight 129.00 lb BMI (Body Mass Index) 24.6 kg/m2 Heart Rate 68 /min Respiratory Rate 16 /min 12/15/2016 11:40am BP Systolic 130 mmHg BP Diastolic 70 mmHg Height 60.75 inches 5'0.75" Weight 129.00 lb BMI (Body Mass Index) 24.6 kg/m2 Heart Rate 75 /min Respiratory Rate 16 /min 11/25/2016 9:39am BP Systolic 118 mmHg BP Diastolic 62 mmHg Height 60.75 inches 5'0.75" Weight 131.00 lb BMI (Body Mass Index) 25.0 kg/m2 Heart Rate 64 /min Respiratory Rate 16 /min 11/19/2016 11:04am BP Systolic 152 mmHg BP Diastolic 78 mmHg Height 60.75 inches 5'0.75" Weight 132.00 lb BMI (Body Mass Index) 25.1 kg/m2 Heart Rate 96 /min Respiratory Rate 16 /min 11/11/2016 3:27pm BP Systolic 120 mmHg BP Diastolic 70 mmHg Height 60.75 inches 5'0.75" Weight 130.00 lb BMI (Body Mass Index) 24.8 kg/m2 Heart Rate 73 /min Respiratory Rate 16 /min 08/24/2016 3:55pm BP Systolic 138 mmHg BP Diastolic 70 mmHg Height 60.75 inches 5'0.75" Weight 136.00 lb BMI (Body Mass Index) 25.9 kg/m2 Heart Rate 82 /min Body Temperature 98.0 F Respiratory Rate 18 /min 06/14/2016 10:56am BP Systolic 142 mmHg BP Diastolic 78 mmHg Height 60.75 inches 5'0.75" Weight 132.00 lb BMI (Body Mass Index) 25.1 kg/m2 Heart Rate 68 /min Respiratory Rate 18 /min 06/03/2016 1:46pm BP Systolic 124 mmHg BP Diastolic 78 mmHg Height 60.75 inches 5'0.75" Weight 129.00 lb BMI (Body Mass Index) 24.6 kg/m2 Heart Rate 83 /min Respiratory Rate 18 /min 05/27/2016 11:05am BP Systolic 132 mmHg BP Diastolic 78 mmHg Height 60.75 inches 5'0.75" Weight 129.00 lb BMI (Body Mass Index) 24.6 kg/m2 Heart Rate 67 /min Respiratory Rate 20 /min 03/18/2016 11:01am BP Systolic 114 mmHg BP Diastolic 62 mmHg Height 60.75 inches 5'0.75" Weight 127.00 lb BMI (Body Mass Index) 24.2 kg/m2 Heart Rate 72 /min Respiratory Rate 18 /min 03/08/2016 9:49am BP Systolic 124 mmHg BP Diastolic 68 mmHg Height 60.75 inches 5'0.75" Weight 127.00 lb BMI (Body Mass Index) 24.2 kg/m2 Heart Rate 93 /min Respiratory Rate 18 /min 11/21/2015 9:00am BP Systolic 128 mmHg BP Diastolic 72 mmHg Height 60.75 inches 5'0.75" Weight 133.00 lb BMI (Body Mass Index) 25.3 kg/m2 Heart Rate 68 /min Respiratory Rate 17 /min 09/18/2015 8:38am BP Systolic 139 mmHg BP Diastolic 80 mmHg Height 60.75 inches 5'0.75" Weight 136.00 lb BMI (Body Mass Index) 25.9 kg/m2 Heart Rate 69 /min Respiratory Rate 18 /min 05/22/2015 1:52pm BP Systolic 132 mmHg BP Diastolic 78 mmHg Height 60.75 inches 5'0.75" Weight 129.00 lb BMI (Body Mass Index) 24.6 kg/m2 Heart Rate 71 /min Respiratory Rate 18 /min 01/14/2015 9:13am BP Systolic 134 mmHg BP Diastolic 82 mmHg Height 60.75 inches 5'0.75" Weight 131.00 lb BMI (Body Mass Index) 25.0 kg/m2 Heart Rate 70 /min Respiratory Rate 12 /min 01/02/2015 3:42pm BP Systolic 126 mmHg BP Diastolic 82 mmHg Height 60.75 inches 5'0.75" Weight 131.00 lb BMI (Body Mass Index) 25.0 kg/m2 Heart Rate 80 /min Respiratory Rate 16 /min 10/10/2014 8:55am BP Systolic 145 mmHg BP Diastolic 78 mmHg Height 60.75 inches 5'0.75" Weight 124.00 lb BMI (Body Mass Index) 23.6 kg/m2 Heart Rate 65 /min Respiratory Rate 18 /min 09/25/2014 2:18pm BP Systolic 124 mmHg BP Diastolic 76 mmHg Height 60.75 inches 5'0.75" Weight 127.00 lb BMI (Body Mass Index) 24.2 kg/m2 Heart Rate 68 /min Respiratory Rate 16 /min 09/02/2014 10:14am BP Systolic 139 mmHg BP Diastolic 88 mmHg Height 60.75 inches 5'0.75" Weight 130.00 lb BMI (Body Mass Index) 24.8 kg/m2 Heart Rate 82 /min Respiratory Rate 16 /min 07/26/2014 8:40am BP Systolic 134 mmHg BP Diastolic 73 mmHg Height 60.75 inches 5'0.75" Weight 129.00 lb BMI (Body Mass Index) 24.6 kg/m2 Heart Rate 80 /min Respiratory Rate 15 /min 07/01/2014 2:09pm BP Systolic 138 mmHg BP Diastolic 83 mmHg Height 60.75 inches 5'0.75" Weight 129.00 lb BMI (Body Mass Index) 24.6 kg/m2 Heart Rate 86 /min Respiratory Rate 15 /min 06/27/2014 10:12am BP Systolic 138 mmHg BP Diastolic 81 mmHg Height 60.75 inches 5'0.75" Weight 129.00 lb BMI (Body Mass Index) 24.6 kg/m2 Heart Rate 77 /min Respiratory Rate 15 /min 06/24/2014 2:39pm BP Systolic 104 mmHg BP Diastolic 66 mmHg Height 60.75 inches 5'0.75" Weight 129.00 lb BMI (Body Mass Index) 24.6 kg/m2 Heart Rate 75 /min Respiratory Rate 14 /min 06/17/2014 8:54am BP Systolic 119 mmHg BP Diastolic 76 mmHg Height 60.75 inches 5'0.75" Weight 129.00 lb BMI (Body Mass Index) 24.6 kg/m2 Heart Rate 68 /min Body Temperature 97.5 F Respiratory Rate 20 /min 05/29/2014 9:30am BP Systolic 130 mmHg BP Diastolic 78 mmHg Height 60.75 inches 5'0.75" Weight 129.00 lb BMI (Body Mass Index) 24.6 kg/m2 Heart Rate 72 /min Body Temperature 98.3 F Respiratory Rate 16 /min 05/17/2014 1:52pm BP Systolic 122 mmHg BP Diastolic 71 mmHg Height 60.75 inches 5'0.75" Weight 125.00 lb BMI (Body Mass Index) 23.8 kg/m2 Heart Rate 66 /min Respiratory Rate 16 /min 04/01/2014 9:05am BP Systolic 140 mmHg BP Diastolic 78 mmHg Height 60.75 inches 5'0.75" Weight 124.00 lb BMI (Body Mass Index) 23.6 kg/m2 Heart Rate 76 /min Respiratory Rate 18 /min 03/27/2014 1:39pm BP Systolic 123 mmHg BP Diastolic 81 mmHg Height 60.75 inches 5'0.75" Weight 124.00 lb BMI (Body Mass Index) 23.6 kg/m2 Heart Rate 70 /min Body Temperature 96.8 F Respiratory Rate 18 /min 02/21/2014 11:35am BP Systolic 134 mmHg BP Diastolic 78 mmHg Height 60.75 inches 5'0.75" Weight 125.00 lb BMI (Body Mass Index) 23.8 kg/m2 Heart Rate 70 /min Body Temperature 95.2 F Respiratory Rate 22 /min 01/25/2014 3:23pm BP Systolic 114 mmHg BP Diastolic 70 mmHg Height 60.75 inches 5'0.75" Weight 124.00 lb BMI (Body Mass Index) 23.6 kg/m2 Heart Rate 69 /min Respiratory Rate 20 /min 01/04/2014 10:54am BP Systolic 134 mmHg BP Diastolic 81 mmHg Height 60.75 inches 5'0.75" Weight 126.00 lb BMI (Body Mass Index) 24.0 kg/m2 Heart Rate 73 /min Body Temperature 96.9 F Respiratory Rate 18 /min 09/28/2013 10:09am BP Systolic 118 mmHg BP Diastolic 72 mmHg Height 60.75 inches 5'0.75" Weight 129.00 lb BMI (Body Mass Index) 24.6 kg/m2 Heart Rate 54 /min Body Temperature 98.0 F Respiratory Rate 18 /min 09/13/2013 10:55am BP Systolic 124 mmHg BP Diastolic 78 mmHg Height 60.75 inches 5'0.75" Weight 127.00 lb BMI (Body Mass Index) 24.2 kg/m2 Heart Rate 80 /min Respiratory Rate 16 /min 08/01/2013 1:55pm BP Systolic 116 mmHg BP Diastolic 72 mmHg Height 60.75 inches 5'0.75" Weight 126.00 lb BMI (Body Mass Index) 24.0 kg/m2 Heart Rate 80 /min Respiratory Rate 16 /min 07/18/2013 10:41am BP Systolic 118 mmHg BP Diastolic 70 mmHg Height 60.75 inches 5'0.75" Weight 125.00 lb BMI (Body Mass Index) 23.8 kg/m2 Heart Rate 80 /min Respiratory Rate 16 /min Results Test Date Facility Test Result H/L Range Note Laboratory test 11/19/2016 [facility] Troponin-I 0.00 ng/mL N <0.04 1 finding (TnI) TSH (Thyroid Stim Horm) 1.92 mcIU/mL N 0.34-5.60 2 Erythrocyte Sed Rate 5 mm/Hr N 0-14 3 CRP High Sensitivity 0.50 mg/L N 4 Comp Metabolic Panel 11/19/2016 [facility] Sodium 138 mmol/L N 133- 145 Potassium 4.2 mmol/L N 3.5-5.0 Chloride 106 mmol/L N 101-111 Co2 Carbon Dioxide 23 mmol/L N 22-32 Anion Gap 9 mmol/L N 2-11 Glucose 87 mg/dL N 70-100 Blood Urea Nitrogen 7 mg/dL N 6-24 Creatinine 0.69 mg/dL N 0.51-0.95 BUN/Creatinine Ratio 10.1 N 8-20 Calcium 9.6 mg/dL N 8.6-10.3 Total Protein 6.8 g/dL N 6.4-8.9 Albumin 4.6 g/dL N 3.2-5.2 Globulin 2.2 g/dL N 2-4 Albumin/Globulin Ratio 2.1 N 1-3 Total Bilirubin 0.30 mg/dL N 0.2-1.0 Alkaline Phosphatase 57 U/L N 34-104 Alt 8 U/L N 7-52 Ast 12 U/L Low 13-39 Egfr Non- 91.6 N >60 Egfr 117.8 N >60 5 CBC Auto Diff 11/19/2016 [facility] White Blood 14.0 10^3/uL High 3.5 -10.8 Count Red Blood Count 4.06 10^6/uL N 4.0-5.4 Hemoglobin 12.7 g/dL N 12.0-16.0 Hematocrit 39 % N 35-47 Mean Corpuscular Volume 96 fL N 80-97 Mean Corpuscular Hemoglobin 31 pg N 27-31 Mean Corpuscular HGB Conc 32 g/dL N 31-36 Red Cell Distribution Width 14 % N 10.5-15 Platelet Count 297 10^3/uL N 150-450 Mean Platelet Volume 9 um3 N 7.4-10.4 Abs Neutrophils 9.0 10^3/uL High 1.5-7.7 Abs Lymphocytes 3.9 10^3/uL N 1.0-4.8 Abs Monocytes 1.0 10^3/uL High 0-0.8 Abs Eosinophils 0 10^3/uL N 0-0.6 Abs Basophils 0.1 10^3/uL N 0-0.2 Abs Nucleated RBC 0.01 10^3/uL N Granulocyte % 64.3 % N 38-83 Lymphocyte % 27.5 % N 25-47 Monocyte % 7.3 % N 1-9 Eosinophil % 0.2 % N 0-6 Basophil % 0.7 % N 0-2 Nucleated Red Blood Cells % 0.1 N Urine Screen 01/31/2016 [place] Urine Color YELLOW N Yellow 6 Urine Clarity CLEAR N Clear Urine Glucose - Dipstick NEGATIVE mg/dL N Negative Urine Bilirubin - Dipstick NEGATIVE N Negative Urine Ketone NEGATIVE mg/dL N Negative Urine Specific [place] 1.010 N 1.010-1.030 Urine Blood TRACE N Negative Urine PH 6.0 Low 6.5-7.5 Urine Protein - Dipstick NEGATIVE mg/dL N Negative Urine Urobilinogen - Dipstick 0.2 E.U./dL N 0.2-1.0 Urine Nitrite - Dipstick NEGATIVE N Negative Urine Leuk Esterase NEGATIVE N Negative Source: URINE, CLEAN CAT <SEE NOTE> 7 Urine HCG 01/31/2016 [facility] Urine HCG NEGATIVE N Negative 8 (Qualitative) (Qualitative) Source: URINE, CLEAN CAT <SEE NOTE> 9 Monitor 01/14/2015 [facility] [place] Amphetamine Negative ng/mL Vqhzrz=4578 10 14-Drug Class Screen, Urine Profile (MW) Barbiturates Screen, Urine Negative ng/mL Nhhalr=154 Benzodiazepines Screen, Urine Negative ng/mL Mcgxzh=478 Cannabinoid Screen, Urine Negative ng/mL Cutoff=20 Cocaine (Metab.) Screen, Urine Negative ng/mL Tckefe=241 Opiate Screen, Urine Negative ng/mL Hhfblo=593 11 Oxycodone/Oxymorphone, Urine Negative ng/mL Ifmagj=690 12 Phencyclidine Screen, Urine Negative ng/mL Cutoff=25 Methadone Screen, Urine Negative ng/mL Smvtfb=049 Propoxyphene Screen, Urine Negative ng/mL Ntkffn=449 Meperidine Screen, Urine Negative ng/mL Obmmyh=710 Tramadol Screen, Urine Negative ng/mL Amdwkg=418 Fentanyl, Urine Negative pg/mL Yxotwm=0560 13 Buprenorphine, Urine Negative ng/mL Cutoff=10 Creatinine, Urine 35.4 mg/dL 20.0-300.0 Specific [place] 1.012 pH, Urine 5.6 4.5-8.9 Please Note: See Comment: 14 CBC W/Automated Diff 06/17/2014 [facility] White Blood Count 8.8 K/uL 3.1- 10.7 Red Blood Count 3.94 M/uL 3.90-5.40 Hemoglobin 13.2 gm/dL 11.6-15.8 Hematocrit 39.6 % 36.0-46.1 Mean Cell Volume 100.5 fl High 80.9-99.0 Mean Corpuscular HGB 33.5 pg High 25.9-32.7 Mean Corpuscular HGB Conc 33.3 g/dL 30.8-34.3 Platelet Count 297 K/uL 155-360 Red Cell Distri Width SD 46.8 fl 3-47 Red Cell Distri Width %CV 12.9 % 11.7-14.4 Mean Platelet Volume 11.0 fL 8.9-12.4 Neut% 56.5 % 40.4-72.8 Lymph % 34.1 % 17.0-46.1 [place] % 7.5 % 4.3-13.2 Eo% 1.6 % 0.0-6.6 Bas% 0.3 % 0.0-1.1 Neut# 4.99 K/uL 1.0-7.0 Lymph # 3.01 K/uL 0.8-3.4 [place] # 0.66 K/uL 0.3-0.9 Eos # 0.14 K/uL 0.0-0.5 Baso # 0.03 K/uL 0.0-0.1 Comprehensive Metabolic Panel 06/17/2014 [facility] Glucose 72 mg/dL Low 74 -106 BUN 12 mg/dL 7-18 Creatinine 0.7 mg/dL 0.6-1.3 Glom Filtration Rate, Estimate >60 mL/min >60 If >60 mL/min >60 15 BUN/Creat 17.1 ratio Sodium 140 mmol/L 136-145 Potassium 4.3 mmol/L 3.5-5.1 Chloride 108 mmol/L High 98-107 Carbon Dioxide 24 mmol/L 21-32 Anion Gap 12 mEq/L 8-16 Calcium 9.0 mg/dL 8.5-10.1 Total Protein 7.0 g/dL 6.4-8.2 Albumin 4.2 g/dL 3.4-5.0 Globulin 2.8 g/dL 1.9-4.3 Alb/Glob 1.5 ratio Bilirubin,Total 0.2 mg/dL 0.2-1.0 Sgot/Ast 11 U/L Low 15-37 16 SGPT/Alt 15 U/L 12-78 Alkaline Phosphatase 90 U/L 45-117 LDL Cholesterol Profile 06/17/2014 [facility] Cholesterol 181 mg/dL < 200 17 Triglycerides 103 mg/dL < 150 18 HDL Cholesterol 41 mg/dL > 40 19 LDL-Cholesterol 119 mg/dL < 100 20 Laboratory test finding 06/17/2014 [facility] Sedimentation Rate 9 mm/hr 0 -20 Rheumatoid Factor Screen < 10.0 IU/mL 0.0-15.0 Anti-Nuclear Antibodies Direct Negative AU/mL Negative 21 TSH Reflex FT4 and/or FT3 3.11 uIU/mL 0.36-3.74 22 Vitamin D,1,25 Dihydroxy 55.1 pg/mL 10.0-75.0 23 Urine Culture 09/28/2013 [facility] Urine Culture See Note 24 Genital Culture W/ Gram 09/28/2013 [facility] Genital Culture W/ Gram See Note 25 Stain Stain Gram Stain See Note 26 Genital Culture See Note 27 Comprehensive Metabolic Panel 07/18/2013 [facility] Glucose 67 mg/dL Low 76 -115 BUN 10 mg/dL 5-23 Creatinine 0.7 mg/dL 0.5-1.4 Glom Filtration Rate, Estimate >60 mL/min >60 If >60 mL/min >60 28 BUN/Creat 14.2 ratio Sodium 140 mmol/L 136-145 Potassium 4.1 mmol/L 3.5-5.1 Chloride 107 mmol/L 98-107 Carbon Dioxide 24 mEq/L 18-29 Anion Gap 13 mEq/L 8-16 Calcium 8.6 mg/dL 8.5-10.1 Total Protein 6.5 g/dL 6.3-8.0 Albumin 4.5 g/dL 3.5-5.0 Globulin 2.0 g/dL 1.9-4.3 Alb/Glob 2.3 ratio Bilirubin,Total 0.3 mg/dL 0.2-1.2 Sgot/Ast 14 U/L Low 16-40 SGPT/Alt 14 U/L Low 30-65 Alkaline Phosphatase 75 U/L 50-136 CBC W/Automated Diff 07/18/2013 [facility] White Blood Count 9.3 K/uL 3.1- 10.7 Red Blood Count 4.00 M/uL 3.90-5.40 Hemoglobin 13.1 gm/dL 11.6-15.8 Hematocrit 39.6 % 36.0-46.1 Mean Cell Volume 99.0 fl 80.9-99.0 Mean Corpuscular HGB 32.8 pg High 25.9-32.7 Mean Corpuscular HGB Conc 33.1 g/dL 30.8-34.3 Platelet Count 290 K/uL 155-360 Red Cell Distri Width SD 46.4 fl 3-47 Red Cell Distri Width %CV 13.1 % 11.7-14.4 Mean Platelet Volume 11.0 fL 8.9-12.4 Neut% 58.1 % 40.4-72.8 Lymph % 33.4 % 17.0-46.1 [place] % 6.9 % 4.3-13.2 Eo% 1.3 % 0.0-6.6 Bas% 0.3 % 0.0-1.1 Neut# 5.37 K/uL 1.0-7.0 Lymph # 3.09 K/uL 0.8-3.4 [place] # 0.64 K/uL 0.3-0.9 Eos # 0.12 K/uL 0.0-0.5 Baso # 0.03 K/uL 0.0-0.1 Glycohemoglobin A1c 07/18/2013 [facility] Glycohemoglobin (A1c) 5.0 % 4.8- 6.0 29 eAG 97 mg/dL Laboratory test 07/18/2013 [facility] Thyroid Stim 2.33 uIU/mL 0.49-4.67 finding Hormone LDL Cholesterol 07/18/2013 [facility] Cholesterol 157 mg/dL 120-200 Profile Triglycerides 105 mg/dL 16-231 HDL Cholesterol 43 mg/dL 29-83 LDL-Cholesterol 93 mg/dL 62-185 Laboratory test 07/18/2013 [facility] Vitamin 17.1 ng/mL Low 30.0-100.0 30 finding D,25-Hydroxy 1 [id number] 2 [id number] 3 [id number] 4 Low risk: <1.00 Average risk: 1.00-3.00 High risk: >3.00 5 Because ethnic data is not always readily available, this report includes an eGFR for both -Americans and non- Americans. The National Kidney Disease Education Program (NKDEP) does not endorse the use of the MDRD equation for patients that are not between the ages of 18 and 70, are , have extremes of body size, muscle mass, or nutritional status, or are non- or non-. According to the National Kidney Foundation, irrespective of diagnosis, the stage of the disease is based on the level of kidney function: Stage Description GFR(mL/min/1.73 m(2)) 1 Kidney damage with normal or decreased GFR 90 2 Kidney damage with mild decrease in GFR 60-89 3 Moderate decrease in GFR 30-59 4 Severe decrease in GFR 15-29 5 Kidney failure <15 (or dialysis) 6 DIAHRREA,FEVERISH,FATIGUE,BEEN THIS WAY FOR 4 DAYS 7 URINE, CLEAN CATCH 8 FIRST MORNING SPECIMENS GENERALLY CONTAIN THE HIGHEST CONCENTRATION OF HCG AND ARE RECOMMENDED FOR EARLY DETECTION OF . 9 URINE, CLEAN CATCH 10 [id number] LM 11 Opiate test includes Codeine, Morphine, Hydromorphone, Hydrocodone. 12 Test includes Oxycodone and Oxymorphone 13 Test includes Fentanyl and Norfentanyl 14 Drug-test results should be interpreted in the context of clinical information. Patient metabolic variables, specific drug chemistry, and specimen characteristics can affect test outcome. Technical consultation is available if a test result is inconsistent with an expected outcome. (email-[email or web address] call toll-free [phone]) Drug brands, if listed herein, are trademarks of their respective owners. 15 Note: Persistent reduction for 3 months or more in an eGFR <60 mL/min/1.73 m2 defines CKD. Patients with eGFR values >/=60 mL/min/1.73 m2 may also have CKD if evidence of persistent proteinuria is present. The original MDRD equation for estimated GFR is not valid for patients less than 18 years of age. Additional information may be found at www.kdoqi.org. 16 Values below the stated reference ranges of AST and ALT can be seen in normal populations. Clinical correlation is suggested. 17 Reference Guidelines*: Desirable: ........... < 200 mg/dL Borderline High: ..... 200-239 mg/dL High: ................ >=240 mg/dL * The National Cholesterol Education Program (NCEP) 18 Reference Guidelines*: Normal: ............. < 150 mg/dL Borderline High: .... 150-199 mg/dL High: ............... 200-499 mg/dL Very High: .......... > 500 mg/dL * Source: National Cholesterol Education Program (NCEP) 19 Reference Guidelines*: Low HDL: ..... < 40 mg/dL Normal: ..... 40-60 mg/dL Desirable: ... > 60 mg/dL *The National Cholesterol Education Program(NCEP) 20 Reference Guidelines*: Optimal:........... <100 mg/dL Near Optimal....... 100-129 mg/dL Borderline High.... 130-159 mg/dL High............... 160-189 mg/dL Very High.......... >=190 mg/dL * Source: National Cholesterol Education Program (NCEP) 21 Performed at: - [facility] [id number] Home Coordinator: Imani Gutierrez MD, Phone: [phone] 22 QUERY: Reflex add FT3? N QUERY: Reflex add FT4? Y 23 Performed at: - [facility] [id number] Home Coordinator: Poncho Blanchard MD, Phone: [phone] 24 NO GROWTH: FINAL REPORT 25 CULTURE IN PROGRESS 26 GRAM STAIN ! GRAM STAIN INDICATES NORMAL GENITAL SHOAIB ! MODERATE GR POS. BACILLI SUGGESTIVE OF LACTOBACILLUS ! SP. 27 GENITAL SHOAIB 28 Note: Persistent reduction for 3 months or more in an eGFR <60 mL/min/1.73 m2 defines CKD. Patients with eGFR values >/=60 mL/min/1.73 m2 may also have CKD if evidence of persistent proteinuria is present. The original MDRD equation for estimated GFR is not valid for patients less than 18 years of age. Additional information may be found at www.kdoqi.org. 29 A1c value between 5.7% and 6.4% is considered at increased risk for diabetes. A1c value greater than 6.5 % is considered essentially diagnostic for Type II diabetes. Current guidelines recommend a treatment goal of <7% for diabetic patients. This method will measure glycosylated hemoglobin variants, HbS, HbG, HbH, HbWayne, HbC, HbE, etc. Other hemoglobin- opathies may give incorrect results with this test. 30 Vitamin D deficiency has been defined by the [employer] and an Endocrine Society practice guideline as a level of serum 25-OH vitamin D less than 20 ng/mL (1,2). The Endocrine Society went on to further define vitamin D insufficiency as a level between 21 and 29 ng/mL (2). 1. IOM ([employer] of [employer]). 2010. Dietary reference intakes for calcium and D. [place]: The National Academies Press. 2. Tiffany MF, Elina NC, Latisha JACOBSON, et al. Evaluation, treatment, and prevention of vitamin D deficiency: an Endocrine Society clinical practice guideline. JCEM. 2010; 96(7):1911-30. Performed at: RN - [facility] [address] [id number] Home Coordinator: Imani Gutierrez MD, Phone: [phone] Procedures Date Code Description Status 12/04/2018 46960 Spirometry Completed 12/04/2018 46029 Tympanometry Completed 07/26/2018 12919 Tympanometry Completed 07/26/2018 20792 Ear Irrigation Completed 07/17/2018 08191 Spirometry Completed 07/17/2018 36685 Tympanometry Completed 03/23/2018 92508 Tympanometry Completed 03/07/2018 44784 Spirometry Completed 03/07/2018 03137 Tympanometry Completed 04/01/2017 63543 Tympanometry Completed 04/01/2017 38869 Spirometry Completed 02/28/2017 86909 Tympanometry Completed 11/19/2016 31269 EKG Completed 11/11/2016 65842 Spirometry Completed 11/11/2016 54947 Tympanometry Completed 08/24/2016 82824 Spirometry Completed 08/24/2016 79557 Tympanometry Completed 03/18/2016 09858 Audiometry, Bekesy, Screening Completed 03/18/2016 86409 EKG Completed 03/18/2016 94015 Visual Screening Test Completed 03/08/2016 13137 Spirometry Completed 03/08/2016 19353 Tympanometry Completed 11/21/2015 76232 Spirometry Completed 11/21/2015 31153 Tympanometry Completed 05/22/2015 01378 Spirometry Completed 05/22/2015 82922 Tympanometry Completed 06/27/2014 70880 Spirometry Completed 06/17/2014 62403 Audiometry, Bekesy, Screening Completed 06/17/2014 62865 Visual Screening Test Completed 05/29/2014 59046 Spirometry Completed 05/29/2014 51300 Tympanometry Completed 03/27/2014 25101 Ear Irrigation Completed 01/04/2014 62111 Spirometry Completed 01/04/2014 12641 Tympanometry Completed 01/04/2014 17518 Ear Irrigation Completed 06/06/2012 [id number] Mammogram Completed Encounters Type Date Location Provider Dx Diagnosis Office Visit 12/27/2018 [facility] [place] Ary Spears44.9 Chronic obstructive 8:45a N.P. pulmonary disease, unspecified L20.9 Atopic dermatitis, unspecified J30.9 Allergic rhinitis, unspecified H69.83 Other specified disorders of Eustachian tube, bilateral E55.9 Vitamin D deficiency, unspecified F17.210 Nicotine dependence, cigarettes, uncomplicated M54.2 Cervicalgia G56.00 Carpal tunnel syndrome, unspecified upper limb M51.37 Other intervertebral disc degeneration, lumbosacral region M25.559 Pain in unspecified hip M25.569 Pain in unspecified knee M79.606 Pain in leg, unspecified M79.639 Pain in unspecified forearm F33.9 Major depressive disorder, recurrent, unspecified G47.00 Insomnia, unspecified N80.3 Endometriosis of pelvic peritoneum N76.1 Subacute and chronic vaginitis Z90.710 Acquired absence of both cervix and uterus N95.9 Unspecified menopausal and perimenopausal disorder R06.02 Shortness of breath R09.81 Nasal congestion G56.23 Lesion of ulnar nerve, bilateral upper limbs K21.0 Gastro-esophageal reflux disease with esophagitis N89.8 Other specified noninflammatory disorders of vagina G43.101 Migraine with aura, not intractable, with status migrainosus M51.15 Intvrt disc disorders w radiculopathy, thoracolumbar region J30.2 Other seasonal allergic rhinitis R45.4 Irritability and anger H00.025 Hordeolum internum left lower eyelid Office Visit 12/04/2018 11:00a [facility] Poncho Garsia J44.9 Chronic obstructive N.P. pulmonary disease, unspecified L20.9 Atopic dermatitis, unspecified J30.9 Allergic rhinitis, unspecified H69.83 Other specified disorders of Eustachian tube, bilateral E55.9 Vitamin D deficiency, unspecified F17.210 Nicotine dependence, cigarettes, uncomplicated M54.2 Cervicalgia G56.00 Carpal tunnel syndrome, unspecified upper limb M51.37 Other intervertebral disc degeneration, lumbosacral region M25.559 Pain in unspecified hip M25.569 Pain in unspecified knee M79.606 Pain in leg, unspecified M79.639 Pain in unspecified forearm F33.9 Major depressive disorder, recurrent, unspecified G47.00 Insomnia, unspecified N80.3 Endometriosis of pelvic peritoneum N76.1 Subacute and chronic vaginitis Z90.710 Acquired absence of both cervix and uterus N95.9 Unspecified menopausal and perimenopausal disorder R06.02 Shortness of breath R09.81 Nasal congestion G56.23 Lesion of ulnar nerve, bilateral upper limbs K21.0 Gastro-esophageal reflux disease with esophagitis N89.8 Other specified noninflammatory disorders of vagina G43.101 Migraine with aura, not intractable, with status migrainosus R11.0 Nausea H66.93 Otitis media, unspecified, bilateral M51.15 Intvrt disc disorders w radiculopathy, thoracolumbar region J20.9 Acute bronchitis, unspecified J30.2 Other seasonal allergic rhinitis J02.9 Acute pharyngitis, unspecified H92.03 Otalgia, bilateral Office Visit 11/29/2018 8:45a [facility] Poncho Garsia J44.9 Chronic obstructive N.P. pulmonary disease, unspecified L20.9 Atopic dermatitis, unspecified J30.9 Allergic rhinitis, unspecified H69.83 Other specified disorders of Eustachian tube, bilateral E55.9 Vitamin D deficiency, unspecified F17.210 Nicotine dependence, cigarettes, uncomplicated M54.2 Cervicalgia G56.00 Carpal tunnel syndrome, unspecified upper limb M51.37 Other intervertebral disc degeneration, lumbosacral region M25.559 Pain in unspecified hip M25.569 Pain in unspecified knee M79.606 Pain in leg, unspecified M79.639 Pain in unspecified forearm F33.9 Major depressive disorder, recurrent, unspecified G47.00 Insomnia, unspecified N80.3 Endometriosis of pelvic peritoneum N76.1 Subacute and chronic vaginitis Z90.710 Acquired absence of both cervix and uterus N95.9 Unspecified menopausal and perimenopausal disorder R06.02 Shortness of breath R05 Cough R09.81 Nasal congestion G56.23 Lesion of ulnar nerve, bilateral upper limbs K21.0 Gastro-esophageal reflux disease with esophagitis N89.8 Other specified noninflammatory disorders of vagina G43.101 Migraine with aura, not intractable, with status migrainosus R11.0 Nausea H66.93 Otitis media, unspecified, bilateral M51.15 Intvrt disc disorders w radiculopathy, thoracolumbar region Office Visit 11/01/2018 8:45a [facility] Poncho Garsia J44.9 Chronic obstructive N.P. pulmonary disease, unspecified L20.9 Atopic dermatitis, unspecified J30.9 Allergic rhinitis, unspecified H69.83 Other specified disorders of Eustachian tube, bilateral E55.9 Vitamin D deficiency, unspecified F17.210 Nicotine dependence, cigarettes, uncomplicated M54.2 Cervicalgia G56.00 Carpal tunnel syndrome, unspecified upper limb M51.37 Other intervertebral disc degeneration, lumbosacral region M25.559 Pain in unspecified hip M25.569 Pain in unspecified knee M79.606 Pain in leg, unspecified M79.639 Pain in unspecified forearm F33.9 Major depressive disorder, recurrent, unspecified G47.00 Insomnia, unspecified N80.3 Endometriosis of pelvic peritoneum N76.1 Subacute and chronic vaginitis Z90.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 pulmonary disease, unspecified L20.9 Atopic dermatitis, unspecified J30.9 Allergic rhinitis, unspecified H69.83 Other specified disorders of Eustachian tube, bilateral E55.9 Vitamin D deficiency, unspecified F17.210 Nicotine dependence, cigarettes, uncomplicated M54.2 Cervicalgia G56.00 Carpal tunnel syndrome, unspecified upper limb M51.37 Other intervertebral disc degeneration, lumbosacral region M25.559 Pain in unspecified hip M25.569 Pain in unspecified knee M79.606 Pain in leg, unspecified M79.639 Pain in unspecified forearm F33.9 Major depressive disorder, recurrent, unspecified G47.00 Insomnia, unspecified N80.3 Endometriosis of pelvic peritoneum N76.1 Subacute and chronic vaginitis Z90.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 pulmonary disease, unspecified L20.9 Atopic dermatitis, unspecified J30.9 Allergic rhinitis, unspecified H69.83 Other specified disorders of Eustachian tube, bilateral E55.9 Vitamin D deficiency, unspecified F17.210 Nicotine dependence, cigarettes, uncomplicated M54.2 Cervicalgia G56.00 Carpal tunnel syndrome, unspecified upper limb M51.37 Other intervertebral disc degeneration, lumbosacral region M25.559 Pain in unspecified hip M25.569 Pain in unspecified knee M79.606 Pain in leg, unspecified M79.639 Pain in unspecified forearm F33.9 Major depressive disorder, recurrent, unspecified G47.00 Insomnia, unspecified N80.3 Endometriosis of pelvic peritoneum N76.1 Subacute and chronic vaginitis Z90.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 pulmonary disease, unspecified L20.9 Atopic dermatitis, unspecified J30.9 Allergic rhinitis, unspecified H69.83 Other specified disorders of Eustachian tube, bilateral E55.9 Vitamin D deficiency, unspecified F17.210 Nicotine dependence, cigarettes, uncomplicated M54.2 Cervicalgia G56.00 Carpal tunnel syndrome, unspecified upper limb M51.37 Other intervertebral disc degeneration, lumbosacral region M25.559 Pain in unspecified hip M25.569 Pain in unspecified knee M79.606 Pain in leg, unspecified M79.639 Pain in unspecified forearm F33.9 Major depressive disorder, recurrent, unspecified G47.00 Insomnia, unspecified N80.3 Endometriosis of pelvic peritoneum N76.1 Subacute and chronic vaginitis Z90.710 Acquired absence of both cervix and uterus N95.9 Unspecified menopausal and perimenopausal disorder R06.02 Shortness of breath R05 Cough R09.81 Nasal congestion G56.23 Lesion of ulnar nerve, bilateral upper limbs K21.0 Gastro-esophageal reflux disease with esophagitis N89.8 Other specified noninflammatory disorders of vagina Z12.31 Encntr screen mammogram for malignant neoplasm of breast H92.03 Otalgia, bilateral H66.93 Otitis media, unspecified, bilateral J02.9 Acute pharyngitis, unspecified J20.9 Acute bronchitis, unspecified H61.23 Impacted cerumen, bilateral Z68.27 Body mass index (BMI) 27.0-27.9, adult Office Visit 07/17/2018 11:15a [facility] Poncho Garsia J44.9 Chronic obstructive N.P. pulmonary disease, unspecified L20.9 Atopic dermatitis, unspecified J30.9 Allergic rhinitis, unspecified H69.83 Other specified disorders of Eustachian tube, bilateral E55.9 Vitamin D deficiency, unspecified F17.210 Nicotine dependence, cigarettes, uncomplicated M54.2 Cervicalgia G56.00 Carpal tunnel syndrome, unspecified upper limb M51.37 Other intervertebral disc degeneration, lumbosacral region M25.559 Pain in unspecified hip M25.569 Pain in unspecified knee M79.606 Pain in leg, unspecified M79.639 Pain in unspecified forearm F33.9 Major depressive disorder, recurrent, unspecified G47.00 Insomnia, unspecified N80.3 Endometriosis of pelvic peritoneum N76.1 Subacute and chronic vaginitis Z90.710 Acquired absence of both cervix and uterus N95.9 Unspecified menopausal and perimenopausal disorder R06.02 Shortness of breath R05 Cough R09.81 Nasal congestion G56.23 Lesion of ulnar nerve, bilateral upper limbs K21.0 Gastro-esophageal reflux disease with esophagitis N89.8 Other specified noninflammatory disorders of vagina Z12.31 Encntr screen mammogram for malignant neoplasm of breast H92.03 Otalgia, bilateral H66.93 Otitis media, unspecified, bilateral J02.9 Acute pharyngitis, unspecified J20.9 Acute bronchitis, unspecified Z68.27 Body mass index (BMI) 27.0-27.9, adult Office Visit 07/04/2018 1:30p [facility] Jose Elmore J44.9 Chronic obstructive M., M.D. pulmonary disease, unspecified L20.9 Atopic dermatitis, unspecified J30.9 Allergic rhinitis, unspecified H69.83 Other specified disorders of Eustachian tube, bilateral E55.9 Vitamin D deficiency, unspecified Z68.27 Body mass index (BMI) 27.0-27.9, adult F17.210 Nicotine dependence, cigarettes, uncomplicated M54.2 Cervicalgia G56.00 Carpal tunnel syndrome, unspecified upper limb M51.37 Other intervertebral disc degeneration, lumbosacral region M25.559 Pain in unspecified hip M25.569 Pain in unspecified knee M79.606 Pain in leg, unspecified M79.639 Pain in unspecified forearm F33.9 Major depressive disorder, recurrent, unspecified G47.00 Insomnia, unspecified N80.3 Endometriosis of pelvic peritoneum N76.1 Subacute and chronic vaginitis Z90.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 pulmonary disease, unspecified L20.9 Atopic dermatitis, unspecified J30.9 Allergic rhinitis, unspecified H69.83 Other specified disorders of Eustachian tube, bilateral E55.9 Vitamin D deficiency, unspecified F17.210 Nicotine dependence, cigarettes, uncomplicated M54.2 Cervicalgia G56.00 Carpal tunnel syndrome, unspecified upper limb M51.37 Other intervertebral disc degeneration, lumbosacral region M25.559 Pain in unspecified hip M25.569 Pain in unspecified knee M79.606 Pain in leg, unspecified M79.639 Pain in unspecified forearm F33.9 Major depressive disorder, recurrent, unspecified G47.00 Insomnia, unspecified N80.3 Endometriosis of pelvic peritoneum N76.1 Subacute and chronic vaginitis Z90.710 Acquired absence of both cervix and uterus N95.9 Unspecified menopausal and perimenopausal disorder R06.02 Shortness of breath R05 Cough R09.81 Nasal congestion G56.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 pulmonary disease, unspecified L20.9 Atopic dermatitis, unspecified J30.9 Allergic rhinitis, unspecified H69.83 Other specified disorders of Eustachian tube, bilateral E55.9 Vitamin D deficiency, unspecified F17.210 Nicotine dependence, cigarettes, uncomplicated M54.2 Cervicalgia G56.00 Carpal tunnel syndrome, unspecified upper limb M51.37 Other intervertebral disc degeneration, lumbosacral region M25.559 Pain in unspecified hip M25.569 Pain in unspecified knee M79.606 Pain in leg, unspecified M79.639 Pain in unspecified forearm F33.9 Major depressive disorder, recurrent, unspecified G47.00 Insomnia, unspecified N80.3 Endometriosis of pelvic peritoneum N76.1 Subacute and chronic vaginitis Z90.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 pulmonary disease, unspecified L20.9 Atopic dermatitis, unspecified J30.9 Allergic rhinitis, unspecified H69.83 Other specified disorders of Eustachian tube, bilateral E55.9 Vitamin D deficiency, unspecified F17.210 Nicotine dependence, cigarettes, uncomplicated M54.2 Cervicalgia G56.00 Carpal tunnel syndrome, unspecified upper limb M51.37 Other intervertebral disc degeneration, lumbosacral region M25.559 Pain in unspecified hip M25.569 Pain in unspecified knee M79.606 Pain in leg, unspecified M79.639 Pain in unspecified forearm F33.9 Major depressive disorder, recurrent, unspecified G47.00 Insomnia, unspecified N80.3 Endometriosis of pelvic peritoneum N76.1 Subacute and chronic vaginitis Z90.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 pulmonary disease, unspecified L20.9 Atopic dermatitis, unspecified J30.9 Allergic rhinitis, unspecified H69.83 Other specified disorders of Eustachian tube, bilateral E55.9 Vitamin D deficiency, unspecified F17.210 Nicotine dependence, cigarettes, uncomplicated M54.2 Cervicalgia G56.00 Carpal tunnel syndrome, unspecified upper limb M51.37 Other intervertebral disc degeneration, lumbosacral region M25.559 Pain in unspecified hip M25.569 Pain in unspecified knee M79.606 Pain in leg, unspecified M79.639 Pain in unspecified forearm F33.9 Major depressive disorder, recurrent, unspecified G47.00 Insomnia, unspecified N80.3 Endometriosis of pelvic peritoneum N76.1 Subacute and chronic vaginitis Z90.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 pulmonary disease, unspecified L20.9 Atopic dermatitis, unspecified J30.9 Allergic rhinitis, unspecified H69.83 Other specified disorders of Eustachian tube, bilateral E55.9 Vitamin D deficiency, unspecified F17.210 Nicotine dependence, cigarettes, uncomplicated M54.2 Cervicalgia G56.00 Carpal tunnel syndrome, unspecified upper limb M51.37 Other intervertebral disc degeneration, lumbosacral region M25.559 Pain in unspecified hip M25.569 Pain in unspecified knee M79.606 Pain in leg, unspecified M79.639 Pain in unspecified forearm F33.9 Major depressive disorder, recurrent, unspecified G47.00 Insomnia, unspecified N80.3 Endometriosis of pelvic peritoneum N76.1 Subacute and chronic vaginitis Z00.01 Encounter for general adult medical exam w abnormal findings Office Visit 06/03/2017 11:30a Shiv Bosch PA M54.2 Cervicalgia M54.42 Lumbago with sciatica, left side F41.9 Anxiety disorder, unspecified J44.9 Chronic obstructive pulmonary disease, unspecified M25.552 Pain in left hip F17.210 Nicotine dependence, cigarettes, uncomplicated Office Visit 05/26/2017 8:30a Kaitlinana maria Shukla Tremaine [employer] M54.2 Cervicalgia M54.42 Lumbago with sciatica, left side F41.9 Anxiety disorder, unspecified Office Visit 05/12/2017 11:45a Kaitlin Shukla Tremaine [employer] M54.2 Cervicalgia M54.2 Cervicalgia M54.42 Lumbago with sciatica, left side M54.42 Lumbago with sciatica, left side F41.9 Anxiety disorder, unspecified F17.210 Nicotine dependence, cigarettes, uncomplicated Office Visit 04/01/2017 2:45p Tremaine Mclaughlin [employer] J06.9 Acute upper respiratory infection, unspecified R05 Cough J44.9 Chronic obstructive pulmonary disease, unspecified F41.9 Anxiety disorder, unspecified M25.552 Pain in left hip Office Visit 02/28/2017 9:15a [facility] Vazquez Tremaine H66.92 Otitis media, BUSINESS UNIT DIRECTOR unspecified, left ear M25.552 Pain in left hip M54.42 Lumbago with sciatica, left side F17.210 Nicotine dependence, cigarettes, uncomplicated Office Visit 02/14/2017 9:15a [facility] Vazquez Tremaine [employer] DIRECT[employer] M25.552 Pain in left hip M54.42 Lumbago with sciatica, left side F17.210 Nicotine dependence, cigarettes, uncomplicated J44.9 Chronic obstructive pulmonary disease, unspecified Office Visit 02/04/2017 2:15p Tremaine Mclaughlin [employer] DIRECT[employer] M25.552 Pain in left hip F17.210 Nicotine dependence, cigarettes, uncomplicated Office Visit 01/26/2017 9:00a [facility] Tremaine ShuklaP M25.552 Pain in left hip F17.210 Nicotine dependence, cigarettes, uncomplicated J44.9 Chronic obstructive pulmonary disease, unspecified Office Visit 01/12/2017 9:30a [facility] Tremaine Shukla [employer] DIRECT[employer] M25.552 Pain in left hip F17.210 Nicotine dependence, cigarettes, uncomplicated J44.9 Chronic obstructive pulmonary disease, unspecified F41.9 Anxiety disorder, unspecified M54.2 Cervicalgia Office Visit 12/30/2016 9:30a [facility] Tremaine Shukla [employer]IT DIRECT[employer] M25.552 Pain in left hip F17.210 Nicotine dependence, cigarettes, uncomplicated J44.9 Chronic obstructive pulmonary disease, unspecified F41.9 Anxiety disorder, unspecified M54.2 Cervicalgia Office Visit 12/15/2016 11:45a [facility] Tremaine Shukla [employer] UN[employer] DIRECT[employer] M25.562 Pain in left knee M25.552 Pain in left hip M54.2 Cervicalgia F17.210 Nicotine dependence, cigarettes, uncomplicated J44.9 Chronic obstructive pulmonary disease, unspecified Office Visit 11/25/2016 9:45a [facility] Jose Elmore J44.9 Chronic obstructive M., M.D. pulmonary disease, unspecified M25.562 Pain in left knee M54.2 Cervicalgia M79.639 Pain in unspecified forearm M79.643 Pain in unspecified hand M25.579 Pain in unspecified ankle and joints of unspecified foot M54.5 Low back pain M25.519 Pain in unspecified shoulder F17.210 Nicotine dependence, cigarettes, uncomplicated J30.9 Allergic rhinitis, unspecified R53.83 Other fatigue F41.9 Anxiety disorder, unspecified F33.9 Major depressive disorder, recurrent, unspecified G47.00 Insomnia, unspecified H69.83 Other specified disorders of Eustachian tube, bilateral E55.9 Vitamin D deficiency, unspecified L20.9 Atopic dermatitis, unspecified N80.3 Endometriosis of pelvic peritoneum R10.31 Right lower quadrant pain N76.1 Subacute and chronic vaginitis R06.02 Shortness of breath H10.45 Other chronic allergic conjunctivitis N83.201 Unspecified ovarian cyst, right side R09.81 Nasal congestion J20.9 Acute bronchitis, unspecified J01.80 Other acute sinusitis H66.93 Otitis media, unspecified, bilateral R05 Cough R07.9 Chest pain, unspecified M54.12 Radiculopathy, cervical region Office Visit 11/19/2016 10:30a [facility] Jose Elmore J44.9 Chronic obstructive MDavidson MDonte. pulmonary disease, unspecified M25.562 Pain in left knee M54.2 Cervicalgia M79.639 Pain in unspecified forearm M79.643 Pain in unspecified hand M25.579 Pain in unspecified ankle and joints of unspecified foot M54.5 Low back pain M25.519 Pain in unspecified shoulder F17.210 Nicotine dependence, cigarettes, uncomplicated J30.9 Allergic rhinitis, unspecified R53.83 Other fatigue F41.9 Anxiety disorder, unspecified F33.9 Major depressive disorder, recurrent, unspecified G47.00 Insomnia, unspecified H69.83 Other specified disorders of Eustachian tube, bilateral E55.9 Vitamin D deficiency, unspecified L20.9 Atopic dermatitis, unspecified N80.3 Endometriosis of pelvic peritoneum R10.31 Right lower quadrant pain N76.1 Subacute and chronic vaginitis R06.02 Shortness of breath H10.45 Other chronic allergic conjunctivitis N83.201 Unspecified ovarian cyst, right side R09.81 Nasal congestion J20.9 Acute bronchitis, unspecified J01.80 Other acute sinusitis H66.93 Otitis media, unspecified, bilateral R05 Cough R07.9 Chest pain, unspecified M54.12 Radiculopathy, cervical region Office Visit 11/11/2016 4:15p [facility] Ramírez Clarkoumou J44.9 Chronic obstructive Venkat MDavidsonD. pulmonary disease, unspecified M25.562 Pain in left knee M54.2 Cervicalgia M79.639 Pain in unspecified forearm M79.643 Pain in unspecified hand M25.579 Pain in unspecified ankle and joints of unspecified foot M54.5 Low back pain M25.519 Pain in unspecified shoulder F17.210 Nicotine dependence, cigarettes, uncomplicated J30.9 Allergic rhinitis, unspecified R53.83 Other fatigue F41.9 Anxiety disorder, unspecified F33.9 Major depressive disorder, recurrent, unspecified G47.00 Insomnia, unspecified H69.83 Other specified disorders of Eustachian tube, bilateral E55.9 Vitamin D deficiency, unspecified L20.9 Atopic dermatitis, unspecified N80.3 Endometriosis of pelvic peritoneum R10.31 Right lower quadrant pain N76.1 Subacute and chronic vaginitis R06.02 Shortness of breath H10.45 Other chronic allergic conjunctivitis N83.201 Unspecified ovarian cyst, right side R09.81 Nasal congestion J20.9 Acute bronchitis, unspecified J01.80 Other acute sinusitis H66.93 Otitis media, unspecified, bilateral R05 Cough Office Visit 08/24/2016 4:00p [facility] RamírezJammiekelly J44.9 Chronic obstructive M., MDavidsonD. pulmonary disease, unspecified M25.562 Pain in left knee M54.2 Cervicalgia M79.639 Pain in unspecified forearm M79.643 Pain in unspecified hand M25.579 Pain in unspecified ankle and joints of unspecified foot M54.5 Low back pain M25.519 Pain in unspecified shoulder F17.210 Nicotine dependence, cigarettes, uncomplicated J30.9 Allergic rhinitis, unspecified R53.83 Other fatigue F41.9 Anxiety disorder, unspecified F33.9 Major depressive disorder, recurrent, unspecified G47.00 Insomnia, unspecified H69.83 Other specified disorders of Eustachian tube, bilateral E55.9 Vitamin D deficiency, unspecified L20.9 Atopic dermatitis, unspecified N80.3 Endometriosis of pelvic peritoneum R10.31 Right lower quadrant pain N76.1 Subacute and chronic vaginitis R06.02 Shortness of breath H10.45 Other chronic allergic conjunctivitis R09.81 Nasal congestion N83.201 Unspecified ovarian cyst, right side J20.9 Acute bronchitis, unspecified J01.80 Other acute sinusitis H66.93 Otitis media, unspecified, bilateral R05 Cough Office Visit 06/14/2016 11:00a [facility] Tremaine Shukla J44.9 Chronic obstructive BUSINESS [employer]IT DIRECT[employer] pulmonary disease, unspecified F17.210 Nicotine dependence, cigarettes, uncomplicated M25.562 Pain in left knee J30.9 Allergic rhinitis, unspecified Office Visit 06/03/2016 2:15p [facility] Tremaine Shukla [employer] UN[employer] DIRECT[employer] M25.562 Pain in left knee J30.9 Allergic rhinitis, unspecified J44.9 Chronic obstructive pulmonary disease, unspecified F17.210 Nicotine dependence, cigarettes, uncomplicated M54.2 Cervicalgia Office Visit 05/27/2016 11:15a [facility] Jose Elmore J30.9 Allergic rhinitisVenkat M.D. unspecified J44.9 Chronic obstructive pulmonary disease, unspecified M79.639 Pain in unspecified forearm M79.643 Pain in unspecified hand M25.579 Pain in unspecified ankle and joints of unspecified foot M54.2 Cervicalgia M54.5 Low back pain M25.519 Pain in unspecified shoulder R53.83 Other fatigue F41.9 Anxiety disorder, unspecified F33.9 Major depressive disorder, recurrent, unspecified G47.00 Insomnia, unspecified H69.83 Other specified disorders of Eustachian tube, bilateral E55.9 Vitamin D deficiency, unspecified L20.9 Atopic dermatitis, unspecified N80.3 Endometriosis of pelvic peritoneum R10.31 Right lower quadrant pain N76.1 Subacute and chronic vaginitis R06.02 Shortness of breath R09.81 Nasal congestion H10.45 Other chronic allergic conjunctivitis N83.201 Unspecified ovarian cyst, right side M25.562 Pain in left knee Office Visit 03/18/2016 11:00a [facility] Ramírez Jammiekelly Z00.01 Encounter for Dennis Robledo general adult medical exam w abnormal findings J30.9 Allergic rhinitis, unspecified J44.9 Chronic obstructive pulmonary disease, unspecified M79.639 Pain in unspecified forearm M79.643 Pain in unspecified hand M25.579 Pain in unspecified ankle and joints of unspecified foot M54.2 Cervicalgia M54.5 Low back pain M25.519 Pain in unspecified shoulder Z68.24 Body mass index (BMI) 24.0-24.9, adult R53.83 Other fatigue F41.9 Anxiety disorder, unspecified F33.9 Major depressive disorder, recurrent, unspecified G47.00 Insomnia, unspecified H69.83 Other specified disorders of Eustachian tube, bilateral E55.9 Vitamin D deficiency, unspecified L20.9 Atopic dermatitis, unspecified N80.3 Endometriosis of pelvic peritoneum R10.31 Right lower quadrant pain N76.1 Subacute and chronic vaginitis R06.02 Shortness of breath R09.81 Nasal congestion H10.45 Other chronic allergic conjunctivitis N83.201 Unspecified ovarian cyst, right side J20.9 Acute bronchitis, unspecified R05 Cough Office Visit 03/08/2016 10:30a [facility] Tremaine Shukla J01.80 Other acute BUSINESS UNIT DIRECTOR sinusitis R50.9 Fever, unspecified R05 Cough R06.2 Wheezing H66.93 Otitis media, unspecified, bilateral F17.210 Nicotine dependence, cigarettes, uncomplicated Office Visit 11/21/2015 9:00a [facility] Jose Elmore J20.9 Acute bronchitisVenkat M.D. unspecified F17.210 Nicotine dependence, cigarettes, uncomplicated J01.40 Acute pansinusitis, unspecified J30.9 Allergic rhinitis, unspecified H66.93 Otitis media, unspecified, bilateral J44.9 Chronic obstructive pulmonary disease, unspecified M79.639 Pain in unspecified forearm M79.643 Pain in unspecified hand M25.579 Pain in unspecified ankle and joints of unspecified foot M54.2 Cervicalgia M54.5 Low back pain M25.519 Pain in unspecified shoulder R53.83 Other fatigue F41.9 Anxiety disorder, unspecified F33.9 Major depressive disorder, recurrent, unspecified G47.00 Insomnia, unspecified H69.83 Other specified disorders of Eustachian tube, bilateral E55.9 Vitamin D deficiency, unspecified L20.9 Atopic dermatitis, unspecified N80.3 Endometriosis of pelvic peritoneum R10.31 Right lower quadrant pain N83.20 Unspecified ovarian cysts N76.1 Subacute and chronic vaginitis R06.02 Shortness of breath R09.81 Nasal congestion H10.45 Other chronic allergic conjunctivitis Office Visit 09/18/2015 8:30a [facility] Jose Elmore F17.210 Nicotine dependence, Ava Robledo. cigarettes, uncomplicated J30.9 Allergic rhinitis, unspecified J44.9 Chronic obstructive pulmonary disease, unspecified M79.639 Pain in unspecified forearm M79.643 Pain in unspecified hand M25.579 Pain in unspecified ankle and joints of unspecified foot M54.2 Cervicalgia M54.5 Low back pain M25.519 Pain in unspecified shoulder R53.83 Other fatigue F41.9 Anxiety disorder, unspecified F33.9 Major depressive disorder, recurrent, unspecified G47.00 Insomnia, unspecified H69.83 Other specified disorders of Eustachian tube, bilateral E55.9 Vitamin D deficiency, unspecified L20.9 Atopic dermatitis, unspecified N80.3 Endometriosis of pelvic peritoneum R10.31 Right lower quadrant pain N83.20 Unspecified ovarian cysts N76.1 Subacute and chronic vaginitis R06.02 Shortness of breath R09.81 Nasal congestion H10.45 Other chronic allergic conjunctivitis Office Visit 05/22/2015 2:00p [facility] Ramírez Clarkoumou J01.40 Acute pansinusitisVenkat M.D. unspecified H66.93 Otitis media, unspecified, bilateral J20.9 Acute bronchitis, unspecified R05 Cough R06.02 Shortness of breath R09.81 Nasal congestion F17.210 Nicotine dependence, cigarettes, uncomplicated J30.9 Allergic rhinitis, unspecified J44.9 Chronic obstructive pulmonary disease, unspecified M79.639 Pain in unspecified forearm M79.643 Pain in unspecified hand M25.579 Pain in unspecified ankle and joints of unspecified foot M54.2 Cervicalgia M54.5 Low back pain M25.519 Pain in unspecified shoulder R53.83 Other fatigue F41.9 Anxiety disorder, unspecified F33.9 Major depressive disorder, recurrent, unspecified G47.00 Insomnia, unspecified H69.83 Other specified disorders of Eustachian tube, bilateral E55.9 Vitamin D deficiency, unspecified L20.9 Atopic dermatitis, unspecified N80.3 Endometriosis of pelvic peritoneum R10.31 Right lower quadrant pain N83.20 Unspecified ovarian cysts H10.9 Unspecified conjunctivitis N76.1 Subacute and chronic vaginitis Office Visit 01/14/2015 8:45a [facility] Tremaine Shukla [employer] UNIT DIRECT[employer] 729.5 Pain In Limb 496 COPD Airway Obstruction Chronic Not Class Elsewhere 305.1 Tobacco Use Disorder 719.44 Pain Joint Hand 719.47 Pain Joint Ankle & Foot 723.1 Cervicalgia 724.2 Lumbago Office Visit 01/02/2015 4:30p Tremaine Mclaughlin [employer] DIRECT[employer] 729.5 Pain In Limb 496 COPD Airway Obstruction Chronic Not Class Elsewhere 305.1 Tobacco Use Disorder 719.44 Pain Joint Hand 719.47 Pain Joint Ankle & Foot 477.8 Rhinitis Allergic Due To Other Allergen Office Visit 10/10/2014 9:45a [facility] Jose Elmore 372.39 Conjunctivitis Jhon Robledo M.D. 729.5 Pain In Limb 496 COPD Airway Obstruction Chronic Not Class Elsewhere 723.1 Cervicalgia 719.41 Pain Joint Shoulder Region 719.44 Pain Joint Hand 305.1 Tobacco Use Disorder 477.8 Rhinitis Allergic Due To Other Allergen 724.2 Lumbago 780.79 Malaise And Fatigue Other 300.00 Anxiety State Unspec 311 Depressive Disorder Not Elsewhere Spec 780.52 Insomnia Unspecified 381.81 Eustachian Tube Dysfunction 786.05 Shortness Of Breath 268.9 Vitamin D Deficiency Unspec 691.8 Dermatitis Atopic & Related Conditions Other 617.3 Endometriosis Pelvic Peritoneum 729.4 Fasciitis Unspec 719.47 Pain Joint Ankle & Foot Office Visit 09/25/2014 2:15p [facility] Jose Elmore M.D. 729.5 Pain In Limb 496 COPD Airway Obstruction Chronic Not Class Elsewhere 723.1 Cervicalgia 719.41 Pain Joint Shoulder Region 719.44 Pain Joint Hand 305.1 Tobacco Use Disorder 477.8 Rhinitis Allergic Due To Other Allergen 724.2 Lumbago 780.79 Malaise And Fatigue Other 300.00 Anxiety State Unspec 311 Depressive Disorder Not Elsewhere Spec 780.52 Insomnia Unspecified 381.81 Eustachian Tube Dysfunction 786.05 Shortness Of Breath 268.9 Vitamin D Deficiency Unspec 691.8 Dermatitis Atopic & Related Conditions Other 617.3 Endometriosis Pelvic Peritoneum 729.4 Fasciitis Unspec 719.47 Pain Joint Ankle & Foot Office Visit 09/02/2014 10:30a [facility] Jose Elmore 616.10 Vaginitis & Dennis Robledo Vulvovaginitis Unspec 789.07 Pain Abdominal Generalized 729.5 Pain In Limb 496 COPD Airway Obstruction Chronic Not Class Elsewhere 723.1 Cervicalgia 719.41 Pain Joint Shoulder Region 719.44 Pain Joint Hand 305.1 Tobacco Use Disorder 477.8 Rhinitis Allergic Due To Other Allergen 724.2 Lumbago 780.79 Malaise And Fatigue Other 300.00 Anxiety State Unspec 311 Depressive Disorder Not Elsewhere Spec 780.52 Insomnia Unspecified 381.81 Eustachian Tube Dysfunction 786.05 Shortness Of Breath 268.9 Vitamin D Deficiency Unspec 691.8 Dermatitis Atopic & Related Conditions Other 617.3 Endometriosis Pelvic Peritoneum Office Visit 07/26/2014 9:00a [facility] Jose Elmore M.D. 729.5 Pain In Limb 496 COPD Airway Obstruction Chronic Not Class Elsewhere 723.1 Cervicalgia 719.41 Pain Joint Shoulder Region 719.44 Pain Joint Hand 305.1 Tobacco Use Disorder 477.8 Rhinitis Allergic Due To Other Allergen 724.2 Lumbago 780.79 Malaise And Fatigue Other 300.00 Anxiety State Unspec 311 Depressive Disorder Not Elsewhere Spec 780.52 Insomnia Unspecified 381.81 Eustachian Tube Dysfunction 786.05 Shortness Of Breath 268.9 Vitamin D Deficiency Unspec Office Visit 07/01/2014 2:15p [facility] [place] Jose Elmore M.D. 729.5 Pain In Limb 496 COPD Airway Obstruction Chronic Not Class Elsewhere 723.1 Cervicalgia 719.41 Pain Joint Shoulder Region 719.44 Pain Joint Hand 305.1 Tobacco Use Disorder 477.8 Rhinitis Allergic Due To Other Allergen 724.2 Lumbago 780.79 Malaise And Fatigue Other 300.00 Anxiety State Unspec 311 Depressive Disorder Not Elsewhere Spec 780.52 Insomnia Unspecified 381.81 Eustachian Tube Dysfunction 786.05 Shortness Of Breath 268.9 Vitamin D Deficiency Unspec Office Visit 06/27/2014 10:00a [facility] [place] Jose Elmore M.D. 729.5 Pain In Limb 496 COPD Airway Obstruction Chronic Not Class Elsewhere 723.1 Cervicalgia 719.41 Pain Joint Shoulder Region 719.44 Pain Joint Hand 305.1 Tobacco Use Disorder 477.8 Rhinitis Allergic Due To Other Allergen 724.2 Lumbago 780.79 Malaise And Fatigue Other 300.00 Anxiety State Unspec 311 Depressive Disorder Not Elsewhere Spec 780.52 Insomnia Unspecified 381.81 Eustachian Tube Dysfunction 786.05 Shortness Of Breath 268.9 Vitamin D Deficiency Unspec Office Visit 06/24/2014 2:45p [facility] Ramírez, Clarkoumou Robledo, 496 COPD Airway M.D. Obstruction Chronic Not Class Elsewhere 723.1 Cervicalgia 719.41 Pain Joint Shoulder Region 719.44 Pain Joint Hand 305.1 Tobacco Use Disorder 477.8 Rhinitis Allergic Due To Other Allergen 724.2 Lumbago 780.79 Malaise And Fatigue Other 300.00 Anxiety State Unspec 311 Depressive Disorder Not Elsewhere Spec 780.52 Insomnia Unspecified 381.81 Eustachian Tube Dysfunction 786.05 Shortness Of Breath 268.9 Vitamin D Deficiency Unspec Office Visit 06/17/2014 8:45a [facility] Jose Elmore, 496 COPD Airway M.D. Obstruction Chronic Not Class Elsewhere 723.1 Cervicalgia 719.41 Pain Joint Shoulder Region 719.44 Pain Joint Hand 305.1 Tobacco Use Disorder 477.8 Rhinitis Allergic Due To Other Allergen 724.2 Lumbago 780.79 Malaise And Fatigue Other 300.00 Anxiety State Unspec 311 Depressive Disorder Not Elsewhere Spec 780.52 Insomnia Unspecified 381.81 Eustachian Tube Dysfunction 786.05 Shortness Of Breath 268.9 Vitamin D Deficiency Unspec V04.81 Need For Prophylactic Vaccination & Inoculation/Influenza V70.0 Examination General Medical Routine AT Health Care Facility Office Visit 05/29/2014 9:30a [facility] Margareth Butts, 727.04 Tenosynovitis BUSINESS UNIT DIRECTOR Radial Styloid 723.1 Cervicalgia 719.41 Pain Joint Shoulder Region 381.10 Otitis Media Simple Or Unspec Chronic 388.70 Otalgia & Earache Unspec 477.9 Rhinitis Allergic Cause Unspec 305.1 Tobacco Use Disorder Office Visit 05/17/2014 1:45p [facility] Margareth Butts, 528.5 Oral Soft Tissue BUSINESS UNIT DIRECTOR Excluding Gingiva & Tongue Lip Diseases 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.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 Office Visit 04/01/2014 9:00a [facility] Margareth Butts, 388.70 Otalgia & BUSINESS UNIT DIRECTOR Earache Unspec 477.9 Rhinitis Allergic Cause Unspec 305.1 Tobacco Use Disorder 300.00 Anxiety State Unspec 296.30 Depressive Disorder Major Recurrent Unspec 780.52 Insomnia Unspecified 381.10 Otitis Media Simple Or Unspec Chronic Office Visit 03/27/2014 1:30p [facility] Benjamín, 381.00 Otitis Media Margareth, BUSINESS UNIT DIRECTOR Nonsuppurative Acute Unspec 388.70 Otalgia & Earache Unspec 380.4 Impacted Cerumen 462 Pharyngitis Acute Office Visit 02/21/2014 11:30a [facility] Benjamín, 381.00 Otitis Media Margareth, BUSINESS UNIT DIRECTOR Nonsuppurative Acute Unspec 462 Pharyngitis Acute Office Visit 01/25/2014 3:30p [facility] Marguerite Buttsberly, 719.47 Pain Joint BUSINESS UNIT DIRECTOR Ankle & Foot 477.9 Rhinitis Allergic Cause Unspec 296.30 Depressive Disorder Major Recurrent Unspec 300.00 Anxiety State Unspec Office Visit 01/04/2014 11:00a [facility] BenjamínMargueriteMargareth, 380.4 Impacted Cerumen BUSINESS UNIT DIRECTOR 477.9 Rhinitis Allergic Cause Unspec 388.70 Otalgia & Earache Unspec 305.1 Tobacco Use Disorder Office Visit 09/28/2013 10:15a [facility] Richi, 616.10 Vaginitis & Kassie BUSINESS UNIT DIRECTOR Vulvovaginitis Unspec 788.30 Incontinence Urinary Unspec Office Visit 09/13/2013 11:00a Kassie Tavera FNP 719.46 Pain Joint Lower Leg 305.1 Tobacco Use Disorder 300.00 Anxiety State Unspec Office Visit 08/01/2013 2:00p Tremaine Mclaughlin BUSINESS UNIT DIRECTOR 719.46 Pain Joint Lower Leg 305.1 Tobacco Use Disorder 789.9 Abdomen & Pelvis Symptoms Other 300.00 Anxiety State Unspec Office Visit 07/18/2013 10:30a Tremaine Mclaughlin BUSINESS UNIT DIRECTOR 719.46 Pain Joint Lower Leg 788.42 Polyuria 780.79 Malaise And Fatigue Other 305.1 Tobacco Use Disorder Plan of Treatment Future Appointment(s):01/10/2019 8:30 am - Poncho Garsia N.P. at [facility], [place]
--- OUTSIDE RECORDS SUMMARY | 2019-01-02 12:32 | XMS REPORT | Continuity of Care Document ---
:1970 External Reference #:[id number] Author Name Poncho Garsia N.P. Address [address] [facility] [address] [place] [address] Care Team Providers Name Role Phone Jose Elmore MD Care Team Information [employer] Unavailable Payers Date Identification Numbers Payment Provider Subscriber Policy Number: [id number] Santosh Walton PayID: [id number] [address] [place] [address] Effective: 2016 Policy Number: [id number] [facility] Tamia Walton Expires: 2017 [address] [address] [place] [address] Problems Active Problems Provider Date Arthralgia of the lower leg Tremaine Shukla [employer] Onset: 07/18/2013 Tobacco user Tremaine Shukla [employer] Onset: 08/01/2013 Recurrent depression Margareth Butts FNP Onset: 01/25/2014 Anxiety Margareth Butts FNP Onset: 01/25/2014 Seasonal allergic rhinitis Margareth Butts FNP Onset: 01/25/2014 Insomnia Margareth Butts FNP Onset: 04/01/2014 Atopic dermatitis Jose Elmore M.D. Onset: 09/02/2014 Endometriosis of pelvic peritoneum Jose Elmore M.D. Onset: 09/02/2014 Vaginitis and vulvovaginitis Jose Elmore M.D. 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 Tablets Claritin 1 by mouth every 30tabs J02.9 Jose Elmore, 12/04/2018 10mg Tablets day M.D. Nicotrol inhale one by 168units F17.210 Jose Elmore, 11/29/2018 10mg Inhaler mouth every 4 M.D. hours as needed Nortriptyline HCL 1 cap by mouth 30caps M51.37 Jose Elmore, 11/29/2018 75mg at bedtime M.D. Capsules Sumatriptan Succinate Take 1 Tablet By 14tabs G43.101 Jose Elmore, Mouth as Needed M.D. 50mg Tablets For Headache May Repeat 1 Time If No Relief In 2 Hours Ibuprofen take one tablet 90tabs G43.101 Jose Elmore, 10/16/2018 600mg Tablets by mouth three M.D. times daily with food as Needed For Headache Ondansetron HCL take one tablet 30tabs R11.0 Jose Elmore, 10/16/2018 4mg by mouth every 4 M.D. Tablets hours as needed (maximum daily dose=6) Proair HFA inhale 2 puffs 17gm J20.9 Jose Elmore, 07/17/2018 108(90Base) by mouth every 4 M.D. mcg/Act Aerosol hours if needed Pennsaid apply to elbow M54.2 RamírezJose emmanuel, 06/13/2018 2% Solution and knees bid M.D. M25.569 M79.639 Gabapentin 1 tab by mouth 90tabs M54.2 Jose Elmore, 06/13/2018 600mg Tablets three times a day M.D. M79.639 M79.606 Yuvafem 1 vaginal every day N89.8 RamírezJose baker, 06/13/2018 10mcg Tablets M.D. Omeprazole 1 by mouth every day 30caps K21.0 RamírezJose emmanuel, 06/13/[address] Collins Meloxicam take one tablet by 90tabs M54.5 RamírezJose baker, 05/02/2017 15mg Tablets mouth once daily M.D. M25.519 M54.2 Fluoxetine HCL take 2 capsules at 180caps F41.9 RamírezJose baker, 2016 20mg bedtime M.D. Capsules F33.9 Tramadol HCL 1 tab by mouth bid 60tabs M51.37 RamírezJose emmanuel, 12/30/2016 50mg Tablets as needed M.D. M79.639 M54.2 Tizanidine HCL 1 by mouth three 90tabs M25.519 RamírezJose emmanuel, 11/19/2016 4mg Tablets times a day as M.D. needed M79.639 M54.2 History Medications Azithromycin 1 tab by mouth 10tabs J20.9 RamírezJose emmanuel 12/04/2018 - 500mg every day x 10 M., M.D. 12/03/2018 Tablets days Amoxicillin/Clavulana 1 tab by mouth 30tabs H66.93 RamírezJose emmanuel 2018 - te Potassium twice a day M., M.D. 11/29/2018 875-125mg Tablets Imitrex one tab by mouth 14tabs G43.101 RamírezJose emmanuel 10/16/2018 - 50mg Tablets as needed M., M.D. 10/26/2018 headache, may repeat x 1 if no relief in 2 hours. Amoxicillin/Clavulana 1 tab by mouth 30tabs J20.9 [facility] 07/26/2018 - te Potassium twice a day M., M.D. 10/15/2018 875-125mg Tablets Amoxicillin/Clavulana 5ml by mouth 125ml H66.93 [facility] 07/17/2018 - te Potassium twice a day x 7 M., M.D. 10/15/2018 days strawberry 600-42.9mg/5ML flavoring if Suspension Rec possible Trazodone HCL 1 tab by mouth 30tabs G47.00 [facility] 06/13/2018 - 50mg every night M., M.D. 11/28/2018 Tablets Prednisone 3 tab by mouth 18tabs [facility] - 20mg Tablets daily 3 days, M., M.D. 05/25/2018 then 2 tab daily x 3 d , then 1 tab daily 3d Azithromycin z jd uad 6tabs [facility] 03/23/2018 - 250mg M., M.D. 03/27/2018 Tablets Cipro 1 tab by mouth 20tabs [facility] 03/10/2018 - 500mg Tablets twice a day M., M.D. 03/20/2018 Prednisone 2 tab by mouth 8tabs [facility] 03/10/2018 - 20mg Tablets daily 4 days M., M.D. 03/16/2018 Prednisone 2 tab by mouth 8tabs [facility] 03/07/2018 - 20mg Tablets daily 4 days M., M.D. 03/10/2018 Amoxicillin 2 by mouth twice 40tabs [facility] 03/07/2018 - 500mg a day M., M.D. 03/10/2018 Tablets Fluticasone use two spray(s) 16gm [facility] 05/02/2017 - Propionate in each nostril M., M.D. 10/15/2018 50mcg/Act once daily as Suspension needed for allergy relief Ciprofloxacin HCL tab one by mouth 20tabs [facility] 04/01/2017 - 500mg twice a day M., M.D. 04/11/2017 Tablets Cheratussin ac teaspoon 1 every 150units [facility] 04/01/2017 - 4 hours as needed M., M.D. 04/11/2017 100-10mg/5ML Syrup Azithromycin Take Two Tablets 6tabs [facility] 03/09/2017 - 250mg By Mouth On Day M., M.D. 03/14/2017 Tablets 1, And Then Take One Tablet By Mouth Once A Day For Days 2-5 Azithromycin take two tablets 6tabs H66.92 [facility] 02/28/2017 - 250mg by mouth as one M., M.D. 03/05/2017 Tablets dose on the first day then take one daily thereafter x 4 days Amoxicillin 2 by mouth twice 40tabs [facility] 11/11/2016 - 500mg a day M., M.D. 11/21/2016 Tablets Prednisone 2 tab by mouth 20tabs [facility] 11/11/2016 - 20mg Tablets daily 4 M., M.D. 11/27/2016 days,30x3d,20x2d, 10x7d Prozac Take 2 Capsules 180caps F41.9 [facility] 10/25/2016 - 20mg Capsules AT Bedtime M., M.D. 01/24/2017 F33.9 Prednisone 2 tab by mouth 8tabs [facility] 08/24/2016 - 20mg Tablets daily 4 days M., M.D. 08/27/2016 Amoxicillin 2 by mouth 40tabs [facility] 08/24/2016 - 500mg Tablets twice a day M., M.D. 09/02/2016 Prednisone 3 tab by mouth 18tabs M25.562 [facility] 05/27/2016 - 20mg Tablets daily 3 days, M., M.D. 06/03/2016 then 2 tab daily x 3 d , then 1 tab daily 3d Hydrocodone-Acetaminophen 1-2 tab by 60tabs M25.562 [facility] 2015 - mouth every 4 M., M.D. 06/14/2016 7.5-325mg Tablets hours as needed Azithromycin 1 by mouth 7tabs [facility] 03/18/2016 - 500mg Tablets every day M., M.D. 03/25/2016 Prednisone 2 tab by mouth 20tabs [facility] 03/18/2016 - 20mg Tablets daily 4 M., M.D. 04/03/2016 days,30x3d,20x2 d,10x7d Cheratussin ac 2 teaspoon by 473ml [facility] 03/18/2016 - 100-10mg/5ML Syrup mouth every 4 M., M.D. 04/03/2016 hours as needed Biaxin 1 by mouth 20tabs J01.80 [facility] 03/08/2016 - 500mg Tablets twice a day M., M.D. 03/18/2016 Methylprednisolone use as directed 1pak R06.2 [facility] 03/08/2016 - 4mg TBPK on package M., M.D. 06/14/2016 Meloxicam take one tablet 60tabs M54.5 [facility] 02/23/2016 - 7.5mg Tablets by mouth twice M., M.D. 05/02/2017 daily M25.519 M54.2 Prednisone 2 tab by mouth 8tabs [facility] 11/21/2015 - 20mg Tablets daily 4 days M., M.D. 11/25/2015 Amoxicillin 2 by mouth twice 40tabs [facility] 11/21/2015 - 500mg a day M., M.D. 12/01/2015 Tablets Amoxicillin 2 by mouth twice 40tabs [facility] 05/22/2015 - 500mg a day M., M.D. 11/20/2015 Tablets Flonase Allergy two sprays per 16gm J30.9 [facility] 05/22/2015 - Relief nostril once a M., M.D. 01/14/2017 50mcg/Act day as needed for Suspension allergy relief R09.81 Meloxicam 1 by mouth 90tabs M25.579 [facility] M., 05/22/2015 - 15mg every day M.D. 05/14/2016 Tablets M54.5 M54.2 Tobramycin 2 drops both eyes 10ml H10.45 [facility] 05/22/2015 - 0.3% three times a day M. M.DDavidson 05/29/2015 Solution Tobramycin 2 drops both eyes 5ml 372.39 [facility] 10/10/2014 - 0.3% three times a day M. M.DDavidson 10/15/2014 Solution Estrace insert 06/07 42.500gm N76.1 [facility] 09/05/2014 - 0.1mg/GM applicator M. M.DDavidson 01/14/2017 Cream vaginallytiw Estradiol Apply 06/07 Applicator 616.10 [facility] 09/04/2014 - 0.5mg Tiw M. M.DDavidson 09/04/2014 Tablets Chantix 1 by mouth twice a 60tabs 305.1 [facility] 09/02/2014 - 1mg day M. M.DDavidson 11/02/2014 Tablets Estrogel apply 06/07 applicator 50gm 616.10 [facility] 09/02/2014 - tiw .Michelle.DDavidson 09/05/2014 0.75mg/1.25 GM (0.06%) Gel Diflucan 1 by mouth twice a 60tabs 616.10 [facility] 09/02/2014 - 100mg day M. M.DDavidson 10/03/2014 Tablets Continue Cervical two-three times a [facility] 07/19/2014 - Neck PT week modalities as Dennis Robledo 06/14/2016 needed dx+ cervicalgia Tizanidine HCL 1 by mouth three 90tabs M54.2 [facility] 06/17/2014 - times a day as Dennis Robledo 06/14/2016 4mg Tablets needed M25.519 M79.639 Hydrocodone-Acetaminophen 1-2 tab by 45tabs M54.2 [facility] 06/17/2014 - 5-325mg Tablets mouth every M., Michelle.D. 2015 4 hours as needed M25.519 M79.643 Dextromethorphan-Guaifenesin Take 2 tsp by 200ml Benjamín, 03/27/2014 - 20-200mg/10ML mouth every [facility] 06/09/2014 Solution 4hrs as needed Aurodex 4 drops 1bottle 381. Benjamín, 02/21/2014 - 5.4-1.4% Solution instilled [facility] 03/06/2014 into affected ear up to 4 times a day as needed. once instilled, insert cotton ball into ear Amoxicillin take 1 tablet 20tabs 381. Benjamín 02/21/2014 - 875mg Tablets by mouth two [facility] 03/06/2014 times a day for 10 days Out Of Work Please excuse Benjamín 02/21/2014 - Tamia from [facility] 06/09/2014 work on 02/20 and 02/21/2014 for an illness. Thanks Meloxicam 1 by mouth 30tabs M25. Jose Elmore 01/25/2014 - 7.5mg Tablets every day 569 M., M.D. 05/22/2015 M25.579 Trazodone HCL Take 1-2 tablets 90tabs 300.00 Margareth Butts, 01/25/2014 - at night [facility] 01/14/2015 50mg Tablets 296.30 780.52 Flonase two sprays per 16gm J30.9 Jose Elmore, 01/04/2014 - 50mcg/Act nostril once a M.D. [...] CPT Code Status Date Vaccine Lot # [id number] Given 06/17/2014 Flu Vaccine [id number] Refused 05/17/2014 Flu Vaccine Vital Signs Date Vital Result Comment 12/04/2018 10:52am BP Systolic 132 mmHg BP [...] Result H/L Range Note Laboratory test 11/19/2016 [facility] Troponin-I 0.00 ng/mL N <0.04 1 finding (TnI) TSH (Thyroid Stim Horm) 1.92 mcIU/mL N 0.34-5.60 2 Erythrocyte Sed Rate 5 mm/Hr N 0-14 3 CRP High Sensitivity 0.50 mg/L N 4 Comp Metabolic Panel 11/19/2016 [facility] Sodium 138 mmol/L N 133- 145 Potassium [...] N >60 5 CBC Auto Diff 11/19/2016 [facility] White Blood 14.0 10^3/uL High 3.5 -10.8 [...] Cells % 0.1 N Urine Screen 01/31/2016 [place] Urine Color YELLOW N Yellow 6 Urine Clarity CLEAR N Clear Urine Glucose - Dipstick NEGATIVE mg/dL N Negative Urine Bilirubin - Dipstick NEGATIVE N Negative Urine Ketone NEGATIVE mg/dL N Negative Urine Specific [place] 1.010 N 1.010-1.030 Urine Blood TRACE N Negative Urine PH 6.0 Low 6.5-7.5 Urine Protein - Dipstick NEGATIVE mg/dL N Negative Urine Urobilinogen - Dipstick 0.2 E.U./dL N 0.2-1.0 Urine Nitrite - Dipstick NEGATIVE N Negative Urine Leuk Esterase NEGATIVE N Negative Source: URINE, CLEAN CAT <SEE NOTE> 7 Urine HCG 01/31/2016 [place] Urine HCG NEGATIVE N Negative 8 (Qualitative) (Qualitative) Source: URINE, CLEAN CAT <SEE NOTE> 9 Monitor 01/14/2015 [facility] [place] Amphetamine Negative ng/mL Gcmwvc=7786 10 14-Drug Class Screen, Urine Profile (MW) Barbiturates Screen, Urine Negative ng/mL Jgcvlk=509 Benzodiazepines Screen, Urine Negative ng/mL Bskadz=689 Cannabinoid Screen, Urine Negative ng/mL Cutoff=20 Cocaine (Metab.) Screen, Urine Negative ng/mL Xzbmhd=016 Opiate Screen, Urine Negative ng/mL Iabtcc=613 11 Oxycodone/Oxymorphone, Urine Negative ng/mL Tzleyg=220 12 Phencyclidine Screen, Urine Negative ng/mL Cutoff=25 Methadone Screen, Urine Negative ng/mL Xsazas=555 Propoxyphene Screen, Urine Negative ng/mL Hihtur=889 Meperidine Screen, Urine Negative ng/mL Pfojpm=916 Tramadol Screen, Urine Negative ng/mL Yekotj=887 Fentanyl, Urine Negative pg/mL Xmgeij=7600 13 Buprenorphine, Urine Negative ng/mL Cutoff=10 Creatinine, Urine 35.4 mg/dL 20.0-300.0 Specific [place] 1.012 pH, Urine 5.6 4.5-8.9 Please Note: See Comment: 14 CBC W/Automated Diff 06/17/2014 [place] White Blood Count 8.8 K/uL 3.1- 10.7 [...] % 40.4-72.8 Lymph % 34.1 % 17.0-46.1 [place] % 7.5 % 4.3-13.2 Eo% 1.6 % 0.0-6.6 Bas% 0.3 % 0.0-1.1 Neut# 4.99 K/uL 1.0-7.0 Lymph # 3.01 K/uL 0.8-3.4 [place] # 0.66 K/uL 0.3-0.9 Eos # 0.14 K/uL 0.0-0.5 Baso # 0.03 K/uL 0.0-0.1 Comprehensive Metabolic Panel 06/17/2014 [place] Glucose 72 mg/dL Low 74 -106 BUN [...] 90 U/L 45-117 LDL Cholesterol Profile 06/17/2014 [place] Cholesterol 181 mg/dL < 200 17 Triglycerides 103 mg/dL < 150 18 HDL Cholesterol 41 mg/dL > 40 19 LDL-Cholesterol 119 mg/dL < 100 20 Laboratory test finding 06/17/2014 [place] Sedimentation Rate 9 mm/hr 0 -20 Rheumatoid Factor Screen < 10.0 IU/mL 0.0-15.0 Anti-Nuclear Antibodies Direct Negative AU/mL Negative 21 TSH Reflex FT4 and/or FT3 3.11 uIU/mL 0.36-3.74 22 Vitamin D,1,25 Dihydroxy 55.1 pg/mL 10.0-75.0 23 Urine Culture 09/28/2013 [place] Urine Culture See Note 24 Genital Culture W/ Gram 09/28/2013 [place] Genital Culture W/ Gram See Note 25 Stain Stain Gram Stain See Note 26 Genital Culture See Note 27 Comprehensive Metabolic Panel 07/18/2013 [place] Glucose 67 mg/dL Low 76 -115 BUN [...] 75 U/L 50-136 CBC W/Automated Diff 07/18/2013 [place] White Blood Count 9.3 K/uL 3.1- 10.7 [...] % 40.4-72.8 Lymph % 33.4 % 17.0-46.1 [place] % 6.9 % 4.3-13.2 Eo% 1.3 % 0.0-6.6 Bas% 0.3 % 0.0-1.1 Neut# 5.37 K/uL 1.0-7.0 Lymph # 3.09 K/uL 0.8-3.4 [place] # 0.64 K/uL 0.3-0.9 Eos # 0.12 K/uL 0.0-0.5 Baso # 0.03 K/uL 0.0-0.1 Glycohemoglobin A1c 07/18/2013 [place] Glycohemoglobin (A1c) 5.0 % 4.8- 6.0 29 eAG 97 mg/dL Laboratory test 07/18/2013 [place] Thyroid Stim 2.33 uIU/mL 0.49-4.67 finding Hormone LDL Cholesterol 07/18/2013 [place] Cholesterol 157 mg/dL 120-200 Profile Triglycerides 105 mg/dL 16-231 HDL Cholesterol 43 mg/dL 29-83 LDL-Cholesterol 93 mg/dL 62-185 Laboratory test 07/18/2013 [place] Vitamin 17.1 ng/mL Low 30.0-100.0 30 finding D,25-Hydroxy 1 [id number] 2 [id number] 3 [id number] 4 Low risk: <1.00 Average risk: 1.00-3.00 [...] OF . 9 URINE, CLEAN CATCH 10 [id number] 11 Opiate test includes Codeine, Morphine, Hydromorphone, Hydrocodone. 12 Test includes Oxycodone and Oxymorphone 13 Test includes Fentanyl and Norfentanyl 14 Drug-test results should be interpreted in the context of clinical information. Patient metabolic variables, specific drug chemistry, and specimen characteristics can affect test outcome. Technical consultation is available if a test result is inconsistent with an expected outcome. ([email or web address] or call toll-free [phone]) Drug brands, if listed herein, are trademarks [...] Education Program (NCEP) 21 Performed at: - [facility] [address] [id number] Wait Staff: Imani Gutierrez MD, Phone: [phone] 22 QUERY: Reflex add FT3? N QUERY: Reflex add FT4? Y 23 Performed at: - [facility] [id number] Wait Staff: Poncho Blanchard MD, Phone: [phone] 24 NO GROWTH: FINAL REPORT 25 CULTURE [...] D deficiency has been defined by the [employer] and an Endocrine Society practice guideline as a level of serum 25-OH vitamin D less than 20 ng/mL (1,2). The Endocrine Society went on to further define vitamin D insufficiency as a level between 21 and 29 ng/mL (2). 1. IOM ([employer]). 2010. Dietary reference intakes for calcium and D. [place]: The National Academies Press. 2. Tiffany MF, Elina NC, Latisha JACOBSON, et al. Evaluation, treatment, and prevention of vitamin D deficiency: an Endocrine Society clinical practice guideline. JCEM. 2010; 96(7):1911-30. Performed at: RN - [facility] [place] [id number] Wait Staff: Imani Gutierrez MD, Phone: [phone] Procedures Date Code Description Status 12/04/2018 20428 Spirometry Completed 12/04/2018 20165 Tympanometry Completed 07/26/2018 58538 Tympanometry Completed 07/26/2018 68160 Ear Irrigation Completed 07/17/2018 65779 Spirometry Completed 07/17/2018 13635 Tympanometry Completed 03/23/2018 72572 Tympanometry Completed 03/07/2018 77976 Spirometry Completed 03/07/2018 17325 Tympanometry Completed 04/01/2017 11068 Tympanometry Completed 04/01/2017 41615 Spirometry Completed 02/28/2017 00914 Tympanometry Completed 11/19/2016 29990 EKG Completed 11/11/2016 33470 Spirometry Completed 11/11/2016 67747 Tympanometry Completed 08/24/2016 38817 Spirometry Completed 08/24/2016 70216 Tympanometry Completed 03/18/2016 59552 Audiometry, Bekesy, Screening Completed 03/18/2016 75156 EKG Completed 03/18/2016 91680 Visual Screening Test Completed 03/08/2016 42529 Spirometry Completed 03/08/2016 79145 Tympanometry Completed 11/21/2015 72615 Spirometry Completed 11/21/2015 06262 Tympanometry Completed 05/22/2015 82126 Spirometry Completed 05/22/2015 55355 Tympanometry Completed 06/27/2014 43187 Spirometry Completed 06/17/2014 39538 Audiometry, Bekesy, Screening Completed 06/17/2014 54538 Visual Screening Test Completed 05/29/2014 51418 Spirometry Completed 05/29/2014 20930 Tympanometry Completed 03/27/2014 53640 Ear Irrigation Completed 01/04/2014 77715 Spirometry Completed 01/04/2014 39185 Tympanometry Completed 01/04/2014 09132 Ear Irrigation Completed 06/06/2012 [id number] Mammogram Completed Encounters Type Date Location Provider Dx Diagnosis Office Visit 12/04/2018 [facility] Poncho Garsia J44.9 Chronic obstructive 11:00a N.P. pulmonary disease, unspecified L20.9 Atopic dermatitis, [...] H92.03 Otalgia, bilateral Office Visit 11/29/2018 8:45a [facility] Poncho Garsia J44.9 Chronic obstructive N.P. pulmonary [...] radiculopathy, thoracolumbar region Office Visit 11/01/2018 8:45a [facility] Poncho Garsia J44.9 Chronic obstructive N.P. [...] media, unspecified, bilateral Office Visit 10/16/2018 2:00p [facility] Poncho Garsia J44.9 Chronic obstructive N.P. [...] media, unspecified, bilateral Office Visit 10/05/2018 10:00a [facility] Jose Elmore J44.9 Chronic obstructive M., [...] disorders of vagina Office Visit 07/26/2018 1:00p [facility] Poncho Garsia J44.9 Chronic obstructive N.P. [...] (BMI) 27.0-27.9, adult Office Visit 07/17/2018 11:15a [facility] Poncho Garsia J44.9 Chronic obstructive N.P. [...] (BMI) 27.0-27.9, adult Office Visit 07/04/2018 1:30p [facility] Jose Elmore J44.9 Chronic obstructive M., [...] neoplasm of breast Office Visit 06/13/2018 1:00p [facility] Jose Elmore J44.9 Chronic obstructive M., [...] disorders of vagina Office Visit 05/16/2018 1:30p [facility] Ramírez Clarkoumou J44.9 Chronic obstructive M., [...] bilateral upper limbs Office Visit 03/23/2018 4:15p [facility] Ramírez Clarkoumou J44.9 Chronic obstructive M., [...] J02.0 Streptococcal pharyngitis Office Visit 03/07/2018 9:15a [facility] M., M.D. pulmonary [...] and perimenopausal disorder Office Visit 06/17/2017 11:45a [facility] oumou J44.9 Chronic obstructive M., M.D. [...] Visit 05/26/2017 8:30a Kaitlinana maria Shukla Tremaine [employer] M54.2 Cervicalgia M54.42 Lumbago with sciatica, left side F41.9 Anxiety disorder, unspecified Office Visit 05/12/2017 11:45a Kaitlin Shukla Tremaine [employer] M54.2 Cervicalgia M54.2 Cervicalgia M54.42 Lumbago with sciatica, left side M54.42 Lumbago with sciatica, left side F41.9 Anxiety disorder, unspecified F17.210 Nicotine dependence, cigarettes, uncomplicated Office Visit 04/01/2017 2:45p Tremaine Mclaughlin [employer] J06.9 Acute upper respiratory infection, unspecified R05 Cough J44.9 Chronic obstructive pulmonary disease, unspecified F41.9 Anxiety disorder, unspecified M25.552 Pain in left hip Office Visit 02/28/2017 9:15a [facility] Vazquez Tremaine H66.92 Otitis media, [employer] unspecified, left ear M25.552 Pain in left hip M54.42 Lumbago with sciatica, left side F17.210 Nicotine dependence, cigarettes, uncomplicated Office Visit 02/14/2017 9:15a [facility] Vazquez Tremaine [employer] M25.552 Pain in left hip M54.42 Lumbago with sciatica, left side F17.210 Nicotine dependence, cigarettes, uncomplicated J44.9 Chronic obstructive pulmonary disease, unspecified Office Visit 02/04/2017 2:15p Tremaine Mclaughlin [employer] M25.552 Pain in left hip F17.210 Nicotine dependence, cigarettes, uncomplicated Office Visit 01/26/2017 9:00a [facility] Tremaine ShuklaP M25.552 Pain in left hip F17.210 Nicotine dependence, cigarettes, uncomplicated J44.9 Chronic obstructive pulmonary disease, unspecified Office Visit 01/12/2017 9:30a [facility] Tremaine Shukla [employer] M25.552 Pain in left hip F17.210 Nicotine dependence, cigarettes, uncomplicated J44.9 Chronic obstructive pulmonary disease, unspecified F41.9 Anxiety disorder, unspecified M54.2 Cervicalgia Office Visit 12/30/2016 9:30a [facility] Tremaine Shukla [employer] M25.552 Pain in left hip F17.210 Nicotine dependence, cigarettes, uncomplicated J44.9 Chronic obstructive pulmonary disease, unspecified F41.9 Anxiety disorder, unspecified M54.2 Cervicalgia Office Visit 12/15/2016 11:45a [facility] Tremaine Shukla [employer] M25.562 Pain in left knee M25.552 Pain in left hip M54.2 Cervicalgia F17.210 Nicotine dependence, cigarettes, uncomplicated J44.9 Chronic obstructive pulmonary disease, unspecified Office Visit 11/25/2016 9:45a [facility] Jose Elmore J44.9 Chronic obstructive M., [...] Radiculopathy, cervical region Office Visit 11/19/2016 10:30a [facility] Jose Elmore J44.9 Chronic obstructive MDavidson [...] Radiculopathy, cervical region Office Visit 11/11/2016 4:15p [facility] Ramírez Clarkoumou J44.9 Chronic obstructive Venkat [...] bilateral R05 Cough Office Visit 08/24/2016 4:00p [facility] RamírezJammiekelly J44.9 Chronic obstructive M., MDavidsonD. [...] bilateral R05 Cough Office Visit 06/14/2016 11:00a [facility] Tremaine Shukla J44.9 Chronic obstructive [employer] pulmonary disease, unspecified F17.210 Nicotine dependence, cigarettes, uncomplicated M25.562 Pain in left knee J30.9 Allergic rhinitis, unspecified Office Visit 06/03/2016 2:15p [facility] Tremaine Shukla [employer] M25.562 Pain in left knee J30.9 Allergic rhinitis, unspecified J44.9 Chronic obstructive pulmonary disease, unspecified F17.210 Nicotine dependence, cigarettes, uncomplicated M54.2 Cervicalgia Office Visit 05/27/2016 11:15a [facility] Jose Elmore J30.9 Allergic rhinitisVenkat M.D. [...] in left knee Office Visit 03/18/2016 11:00a [facility] Ramírez Jammiekelly Z00.01 Encounter for Dennis [...] unspecified R05 Cough Office Visit 03/08/2016 10:30a [facility] Tremaine Shukla J01.80 Other acute [employer] sinusitis R50.9 Fever, unspecified R05 Cough R06.2 Wheezing H66.93 Otitis media, unspecified, bilateral F17.210 Nicotine dependence, cigarettes, uncomplicated Office Visit 11/21/2015 9:00a [facility] Jose Elmore J20.9 Acute bronchitisVenkat M.D. [...] chronic allergic conjunctivitis Office Visit 09/18/2015 8:30a [facility] Jose Elmore F17.210 Nicotine dependence, Ava [...] chronic allergic conjunctivitis Office Visit 05/22/2015 2:00p [facility] Ramírez Clarkoumou J01.40 Acute pansinusitisVenkat M.D. [...] and chronic vaginitis Office Visit 01/14/2015 8:45a [facility] Tremaine Shukla [employer] 729.5 Pain In Limb 496 COPD Airway Obstruction Chronic Not Class Elsewhere 305.1 Tobacco Use Disorder 719.44 Pain Joint Hand 719.47 Pain Joint Ankle & Foot 723.1 Cervicalgia 724.2 Lumbago Office Visit 01/02/2015 4:30p Tremaine Mclaughlin [employer] 729.5 Pain In Limb 496 COPD Airway Obstruction Chronic Not Class Elsewhere 305.1 Tobacco Use Disorder 719.44 Pain Joint Hand 719.47 Pain Joint Ankle & Foot 477.8 Rhinitis Allergic Due To Other Allergen Office Visit 10/10/2014 9:45a [facility] Jose Elmore 372.39 Conjunctivitis Jhon Robledo [...] Ankle & Foot Office Visit 09/25/2014 2:15p [facility] Jose Elmore M.D. 729.5 Pain In [...] Ankle & Foot Office Visit 09/02/2014 10:30a [facility] Jose Elmore 616.10 Vaginitis & Dennis [...] Endometriosis Pelvic Peritoneum Office Visit 07/26/2014 9:00a [facility] Jose Elmore M.D. 729.5 Pain In [...] D Deficiency Unspec Office Visit 07/01/2014 2:15p [facility] Jose Elmore M.D. 729.5 Pain In Limb [...] D Deficiency Unspec Office Visit 06/27/2014 10:00a [facility] Jose Elmore M.D. 729.5 Pain In Limb [...] D Deficiency Unspec Office Visit 06/24/2014 2:45p [facility] Ramírez, Clarkoumou Robledo, 496 COPD Airway [...] D Deficiency Unspec Office Visit 06/17/2014 8:45a [facility] Jose Elmore, 496 COPD Airway M.D. [...] Health Care Facility Office Visit 05/29/2014 9:30a [facility] Margareth Butts, 727.04 Tenosynovitis [employer] Radial Styloid 723.1 Cervicalgia 719.41 Pain Joint Shoulder Region 381.10 Otitis Media Simple Or Unspec Chronic 388.70 Otalgia & Earache Unspec 477.9 Rhinitis Allergic Cause Unspec 305.1 Tobacco Use Disorder Office Visit 05/17/2014 1:45p [facility] Margareth Butts, 528.5 Oral Soft Tissue [employer] Excluding Gingiva & Tongue Lip Diseases 726.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 Office Visit 04/01/2014 9:00a [facility] Margareth Butts, 388.70 Otalgia & [employer] Earache Unspec 477.9 Rhinitis Allergic Cause Unspec 305.1 Tobacco Use Disorder 300.00 Anxiety State Unspec 296.30 Depressive Disorder Major Recurrent Unspec 780.52 Insomnia Unspecified 381.10 Otitis Media Simple Or Unspec Chronic Office Visit 03/27/2014 1:30p [facility] Benjamín, 381.00 Otitis Media Margareth, SAL[employer]ATE [employer] Nonsuppurative Acute Unspec 388.70 Otalgia & Earache Unspec 380.4 Impacted Cerumen 462 Pharyngitis Acute Office Visit 02/21/2014 11:30a [facility] Benjamín, 381.00 Otitis Media Magrareth, SAL[employer]ATE [employer] Nonsuppurative Acute Unspec 462 Pharyngitis Acute Office Visit 01/25/2014 3:30p [facility] Marguerite Buttsberly, 719.47 Pain Joint [employer] Ankle & Foot 477.9 Rhinitis Allergic Cause Unspec 296.30 Depressive Disorder Major Recurrent Unspec 300.00 Anxiety State Unspec Office Visit 01/04/2014 11:00a [facility] BenjamínMargueriteMargareth, 380.4 Impacted Cerumen SAL[employer]ATE [employer] 477.9 Rhinitis Allergic Cause Unspec 388.70 Otalgia & Earache Unspec 305.1 Tobacco Use Disorder Office Visit 09/28/2013 10:15a [facility] Richi, 616.10 Vaginitis & Kassie [employer] Vulvovaginitis Unspec 788.30 Incontinence Urinary Unspec Office Visit 09/13/2013 11:00a Kassie Tavera FNP 719.46 Pain Joint Lower Leg 305.1 Tobacco Use Disorder 300.00 Anxiety State Unspec Office Visit 08/01/2013 2:00p Tremaine Mclaughlin [employer] 719.46 Pain Joint Lower Leg 305.1 Tobacco Use Disorder 789.9 Abdomen & Pelvis Symptoms Other 300.00 Anxiety State Unspec Office Visit 07/18/2013 10:30a Tremaine Mclaughlin [employer] 719.46 Pain Joint Lower Leg 788.42 Polyuria 780.79 Malaise And Fatigue Other 305.1 Tobacco Use Disorder Plan of Treatment Future Appointment(s):12/27/2018 8:45 am - Poncho Garsia N.P. at [facility]
[2019-01-02 12:34] VITALS: BP 113/66
--- NOTE | 2019-01-02 13:48 | UC ---
Back Pain HPI - HPI Summary HPI Summary: per triage, Woke this am left lower back pain. The pain radiates down left leg. Pt states pain is sharp na numbing. Pt has had an MRI of her back and scheduled at the pain clinic 01/08/19 [ End ] denies acute injury. - History of Current Complaint Chief Complaint: UCBackPain Stated Complaint: LEFT SIDE BACK/LEG PAIN Time Seen by Provider: 01/02/19 13:34 Hx Obtained From: Patient Hx Last Menstrual Period: 3yrs Pain Intensity: 9 Aggravating Factor(s): Movement Associated Signs And Symptoms: Positive: Numbness - LLE, Other - no saddle anesthesia. Negative: Fever, Weakness, Abdominal Pain, Flank Pain, Bladder Incontinence, Bowel Incontinence - Allergies/Home Medications Allergies/Adverse Reactions: Allergies Allergy/AdvReac Type Severity Reaction Status Date / Time No Known Allergies Allergy Verified 01/02/19 12:34 PMH/Surg Hx/FS Hx/Imm Hx - Additional Past Medical History Additional PMH: Back pain-disc disease Neurological History: Migraine Psychological History: Depression - Surgical History Surgical History: Yes Surgery Procedure, Year, and Place: APPY. TOTAL HYSTERECTOMY. LEFT OOPHERECTOMY. KNEE MENISCUS REPAIR--RIGHT. CARPAL TUNNEL--RIGHT WRIST. bladder sling - Family History Known Family History: Positive: Unknown Negative: Diabetes - Social History Alcohol Use: None Substance Use Type: None Smoking Status (MU): Current Every Day Smoker Type: Cigarettes Amount Used/How Often: 1/2 PPD Length of Time of Smoking/Using Tobacco: 28 YRS Have You Smoked in the Last Year: Yes When Did the Patient Quit Smoking/Using Tobacco: 6 DAYS AGO Household Exposure Type: Cigarettes - Immunization History Vaccination Up to Date: Yes Review of Systems All Other Systems Reviewed And Are Negative: Yes Constitutional: Negative: Fever, Chills Gastrointestinal: Negative: Abdominal Pain Musculoskeletal: Positive: Decreased ROM - Low back Neurological: Positive: Numbness - LLE. Negative: Weakness Physical Exam Triage Information Reviewed: Yes Appearance: Well-Appearing Vital Signs: Initial Vital Signs Temp 98.8 F 01/02/19 12:28 Pulse 71 01/02/19 12:28 Resp 16 01/02/19 12:28 BP 113/66 01/02/19 12:28 Pulse Ox 100 01/02/19 12:28 Vital Signs Reviewed: Yes Eyes: Positive: Conjunctiva Clear Neck: Positive: Supple, Nontender, No Lymphadenopathy Respiratory: Positive: Lungs clear Cardiovascular: Positive: RRR Abdomen Description: Positive: Nontender, No Organomegaly, Soft. Negative: Pulsatile Mass Bowel Sounds: Positive: Present Musculoskeletal: Positive: Other: - Neck/back: loss of lumbar lordosis. spine non tender. tender L paraspinal mm's in lumbar region. ROM low back limited by pain. no rash. 5/5 strength, 2+ reflexes and sesnation intact x4. no saddle anesthesia. negative straight leg raises x2. slow but steady gait. Neurological: Positive: Alert Psychological: Positive: Age Appropriate Behavior Skin Exam: Normal Skin: Negative: Rashes Back Pain Course/Dx - Differential Dx/Diagnosis Differential Diagnosis/HQI/PQRI: Other - no concern for infection, acute abdomen , fx or cauda equina. Provider Diagnosis: Back pain, Lumbar radiculopathy Discharge - Sign-Out/Discharge Documenting (check all that apply): Patient Departure All imaging exams completed and their final reports reviewed: No Studies - Discharge Plan Condition: Stable Disposition: HOME Prescriptions: methylPREDNISolone [Medrol Dosepak 4 MG*] 0 mg PO .SEE MITA INSTRUCTION #1 tab Patient Education Materials: Lumbar Radiculopathy (ED), Back Pain (ED) Forms: *Work Release Referrals: Jose Elmore MD [Primary Care Provider] - If Needed Additional Instructions: AVOID THE MELOXICAM AND IBUPROFEN WHILE ON THE MEDROL DOSEPAK. CONTINUE ALL OTHER MEDICATIONS. FOLLOW UP WITH [facility] SCHEDULED ON 01/08/19. - Billing Disposition and Condition Condition: STABLE Disposition: Home
== END 2019-01-02 13:59 | disposition home or self-care (01) ==
LOC: UCCORT 11:28
DX: M54.16 Radiculopathy, lumbar region (principal); F17.210 Nicotine dependence, cigarettes, uncomplicated
CPT/HCPCS: 99212; G0463

== ENCOUNTER 2019-05-01 15:18 | Emergency (ER) | payer OTHER ==
--- OUTSIDE RECORDS SUMMARY | 2019-05-01 15:38 | XMS REPORT | Continuity of Care Document ---
:1970 External Reference #:[id number] Author Name Poncho Garsia N.P. 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 Onset: 09/02/2014 Endometriosis of pelvic peritoneum Jose Elmore M.D. Onset: 09/02/2014 Vaginitis and vulvovaginitis Jose Elmore M.D. Onset: 09/02/2014 Social History Type Date Description Comments Sex Unknown ETOH Use Denies alcohol use Tobacco Use [...] Medications SIG Qnty Indications Ordering Date Provider Cyclobenzaprine HCL take one tablet 90tabs M51.15 Jose Elmore 01/05/2019 10mg by mouth three M., M.D. Tablets times a day as needed Claritin 1 by mouth 30caps H69.83 [facility] 12/27/2018 10mg Capsules every day M., M.D. Gentamicin Sulfate 2 drop both 5ml H00.025 [facility] 12/27/2018 0.3% eyes four times M., M.D. Solution a day X10 Days Nicotrol inhale one by 168units F17.210 [facility] 11/29/2018 10mg Inhaler mouth every 4 M., M.D. hours as needed Nortriptyline HCL 1 cap by mouth 30caps M51.37 [facility] 11/29/2018 75mg at bedtime M., M.D. Capsules Sumatriptan Succinate Take 1 Tablet 14tabs G43.101 [facility] 10/26/2018 50mg By Mouth as M., M.D. Tablets Needed For Headache May Repeat 1 Time If No Relief In 2 Hours Ondansetron HCL take one tablet 30tabs R11.0 [facility] 10/16/2018 4mg Tablets by mouth every M., M.D. 4 hours as needed (maximum daily dose =6) Proair HFA inhale 2 puffs 17gm J20.9 [facility] 07/17/2018 108(90Base) by mouth every M., M.D. mcg/Act Aerosol 4 hours if needed Pennsaid apply to elbow M54.2 [facility] 06/13/2018 2% Solution and knees bid M., M.D. M25.569 M79.639 Gabapentin 1 tab by mouth 90tabs M54.2 [facility] [place], 06/13/2018 600mg Tablets three times a day M.D. M79.639 M79.606 Yuvafem 1 vaginal every day 30tabs N89.8 [facility] [place], 06/13/2018 10mcg Tablets M.D. Omeprazole 1 by mouth every day 30caps K21.0 [facility] oumou Rob[place], 06/13/[address] Fluoxetine HCL take 2 capsules at 180caps F41.9 [facility] M., 2016 20mg bedtime M.D. Capsules F33.9 History Medications Prednisone 2 tab by mouth daily 4 30tabs M51.15 [facility] 01/05/2019 - 20mg days,30mg MDavidson, M.D. 01/09/2019 Tablets x3d,33uik5s,76xuz5n Percocet One Tab PO Q4H prn Severe 120tabs M51.15 [facility] 01/05/2019 - 5-325mg Pain M., M.DDavidson 04/17/2019 Tablets Azithromycin 1 tab by mouth every day 10tabs J20.9 [facility] 2018 - x 10 days M., M.D. 12/03/2018 500mg Tablets Azithromycin z jd uad 6tabs J20.9 [facility] 12/04/2018 - MDavidson MDavidsonDDavidson 12/25/2018 250mg Tablets Claritin 1 by mouth every day 30tabs J02.9 [facility] 12/04/2018 - 10mg M., M.DDavidson 12/25/2018 Tablets Medications Administered in Office Medication SIG Qnty Indications Ordering Provider Date Intradermal Mantoux Poncho Garsia, N.P. 02/19/2019 Injection Intradermal Mantoux Poncho Garsia, N.P. 02/14/2019 Injection Immunizations CPT Code Status Date Vaccine Lot # [id number] Given 02/19/2019 MMR 20499 Given 02/19/2019 Flu Virus Vaccine, Quadrivalent, Slit Virus, Im [id number] Use 28049 Given 06/17/2014 Flu Vaccine [id number] Refused 05/17/2014 Flu Vaccine Vital Signs Date Vital Result Comment 04/18/2019 10:40am BP Systolic 118 mmHg BP Diastolic 60 mmHg Height 60.75 inches 5'0.75" Weight 148.00 lb BMI (Body Mass Index) 28.2 kg/m2 Heart Rate 83 /min Respiratory Rate 16 /min 03/09/2019 2:19pm BP Systolic 142 mmHg BP Diastolic 60 mmHg Height 60.75 inches 5'0.75" Heart Rate 75 /min Respiratory Rate 16 /min Results Test Acquired Date Facility Test Result H/L Range Note Laboratory test 02/14/2019 [facility] Measles Igg POSITIVE AI 1 finding 113 INNOVATION LÓPEZ AB @ (607)- - Rubella Igg AB @ EQUIVOCAL AI 2 Mumps Igg (Immune) @ POSITIVE AI 3 1 IgG antibody to Measles detected. This may indicate that the patient was exposed to Measles through infection or vaccination. 2 Suggest repeat testing in 2-4 weeks. 3 IgG antibody to Mumps detected. This may indicate that the patient was exposed to Mumps through infection or vaccination. Procedures Date Code Description Status 12/04/2018 30273 Spirometry Completed 12/04/2018 51586 Tympanometry Completed 06/06/2012 [id number] Mammogram Completed Medical Devices Description No Information Available Encounters Type Date Location Provider Dx Diagnosis Office Visit 04/18/2019 [facility] Malcolm Spears11.1 Encounter for 11:30a N.P. screening for respiratory tuberculosis J44.9 Chronic obstructive pulmonary disease, unspecified L20.9 Atopic dermatitis, unspecified [...] Intvrt disc disorders w radiculopathy, thoracolumbar region R45.4 Irritability and anger Office Visit 03/09/2019 2:30p [facility] Poncho Garsia Z11.1 Encounter for N.P. screening for respiratory tuberculosis J44.9 Chronic obstructive pulmonary disease, unspecified L20.9 Atopic dermatitis, unspecified [...] Intvrt disc disorders w radiculopathy, thoracolumbar region R45.4 Irritability and anger Office Visit 02/21/2019 9:15a [facility] Poncho Garsia, Z11.1 Encounter for N.P. screening for respiratory tuberculosis J44.9 Chronic obstructive pulmonary disease, unspecified L20.9 Atopic dermatitis, unspecified [...] Intvrt disc disorders w radiculopathy, thoracolumbar region R45.4 Irritability and anger Office Visit 02/19/2019 11:30a [facility] Poncho Garsia Z11.1 Encounter for N.P. screening for respiratory tuberculosis J44.9 Chronic obstructive pulmonary disease, unspecified L20.9 Atopic dermatitis, unspecified [...] Intvrt disc disorders w radiculopathy, thoracolumbar region R45.4 Irritability and anger Z23 Encounter for immunization Office Visit 02/14/2019 10:00a [facility] Poncho Garsia Z11.1 Encounter for N.P. screening for respiratory tuberculosis J44.9 Chronic obstructive pulmonary disease, unspecified L20.9 Atopic dermatitis, unspecified [...] Intvrt disc disorders w radiculopathy, thoracolumbar region R45.4 Irritability and anger H00.025 Hordeolum internum left lower eyelid Z13.89 Encounter for screening for other disorder Office Visit 01/10/2019 8:30a [facility] Poncho Garsia, J44.9 Chronic obstructive N.P. pulmonary disease, unspecified [...] Intvrt disc disorders w radiculopathy, thoracolumbar region R45.4 Irritability and anger H00.025 Hordeolum internum left lower eyelid Office Visit 01/05/2019 10:30a [facility] Poncho Garsia, J44.9 Chronic obstructive N.P. pulmonary disease, unspecified [...] Intvrt disc disorders w radiculopathy, thoracolumbar region R45.4 Irritability and anger H00.025 Hordeolum internum left lower eyelid Office Visit 12/27/2018 8:45a [facility] Poncho Garsia J44.9 Chronic obstructive N.P. [...] left lower eyelid Office Visit 12/04/2018 11:00a [facility] Poncho Garsia J44.9 Chronic obstructive N.P. [...] H92.03 Otalgia, bilateral Office Visit 11/29/2018 8:45a [facility] Poncho Garsia, J44.9 Chronic obstructive N.P. pulmonary disease, unspecified [...] radiculopathy, thoracolumbar region Office Visit 11/01/2018 8:45a [facility] Poncho Garsia J44.9 Chronic obstructive N.P. [...] R11.0 Nausea H66.93 Otitis media, unspecified, bilateral Assessments Date Code Description Provider 04/18/2019 Z11.1 Encounter for screening for respiratory Poncho Garsia N.P. tuberculosis 04/18/2019 J44.9 Chronic obstructive pulmonary disease, Poncho Garsia N.P. unspecified 04/18/2019 L20.9 Atopic dermatitis, unspecified Poncho Garsia N.P. 04/18/2019 J30.9 Allergic rhinitis, unspecified Poncho Garsia N.P. 04/18/2019 H69.83 Other specified disorders of Eustachian Poncho Garsia N.P. tube, bilateral 04/18/2019 E55.9 Vitamin D deficiency, unspecified Poncho Garsia N.P. 04/18/2019 F17.210 Nicotine dependence, cigarettes, Poncho Garsia N.P. uncomplicated 04/18/2019 M54.2 Cervicalgia Radha Spears.PDavidson 04/18/2019 G56.00 Carpal tunnel syndrome, unspecified upper Radha Spears.PDavidson limb 04/18/2019 M51.37 Other intervertebral disc degeneration, Pnocho Garsia N.P. lumbosacral region 04/18/2019 M25.559 Pain in unspecified hip Radha Spears.PDavidson 04/18/2019 M25.569 Pain in unspecified knee Radha Spears.PDavidson 04/18/2019 M79.606 Pain in leg, unspecified Poncho Garsia N.PDavidson 04/18/2019 M79.639 Pain in unspecified forearm Poncho Garsia N.PDavidson 04/18/2019 F33.9 Major depressive disorder, recurrent, Radha Spears.P. unspecified 04/18/2019 G47.00 Insomnia, unspecified Poncho Garsia N.P. 04/18/2019 N80.3 Endometriosis of pelvic peritoneum Madie SpearsPDavidson 04/18/2019 N76.1 Subacute and chronic vaginitis Madie SpearsPDavidson 04/18/2019 Z90.710 Acquired absence of both cervix and uterus Poncho Garsia N.P. 04/18/2019 N95.9 Unspecified menopausal and perimenopausal Radha Spears.Peggy disorder 04/18/2019 R06.02 Shortness of breath Radha Spears.PDavidson 04/18/2019 R05 Cough Poncho Garsia N.PDavidson 04/18/2019 R09.81 Nasal congestion Radha Spears.PDavidson 04/18/2019 G56.23 Lesion of ulnar nerve, bilateral upper limbs Poncho Garsia N.P. 04/18/2019 K21.0 Gastro-esophageal reflux disease with Poncho Garsia N.P. esophagitis 04/18/2019 N89.8 Other specified noninflammatory disorders of Poncho Garsia N.P. vagina 04/18/2019 G43.101 Migraine with aura, not intractable, with Poncho Garsia N.P. status migrainosus 04/18/2019 M51.15 Intervertebral disc disorders with Poncho Garsia N.P. radiculopathy, thoracolumbar region 04/18/2019 R45.4 Irritability and anger Radha Spears.Peggy 03/09/2019 Z11.1 Encounter for screening for respiratory Poncho Garsia N.P. tuberculosis 03/09/2019 J44.9 Chronic obstructive pulmonary disease, Poncho Garsia N.P. unspecified 03/09/2019 L20.9 Atopic dermatitis, unspecified Poncho Garsia N.P. 03/09/2019 J30.9 Allergic rhinitis, unspecified Poncho Garsia, N.P. 03/09/2019 H69.83 Other specified disorders of Eustachian Poncho Garsia N.P. tube, bilateral 03/09/2019 E55.9 Vitamin D deficiency, unspecified Poncho Garsia, N.P. 03/09/2019 F17.210 Nicotine dependence, cigarettes, Poncho Garsia N.P. uncomplicated 03/09/2019 M54.2 Cervicalgia Poncho Garsia N.P. 03/09/2019 G56.00 Carpal tunnel syndrome, unspecified upper Poncho Garsia N.P. limb 03/09/2019 M51.37 Other intervertebral disc degeneration, Poncho Garsia N.P. lumbosacral region 03/09/2019 M25.559 Pain in unspecified hip Poncho Garsia N.P. 03/09/2019 M25.569 Pain in unspecified knee Poncho Garsia N.P. 03/09/2019 M79.606 Pain in leg, unspecified Poncho Garsia N.P. 03/09/2019 M79.639 Pain in unspecified forearm Poncho Garsia N.P. 03/09/2019 F33.9 Major depressive disorder, recurrent, Poncho Garsia N.P. unspecified 03/09/2019 G47.00 Insomnia, unspecified Poncho Garsia N.P. 03/09/2019 N80.3 Endometriosis of pelvic peritoneum Poncho Garsia N.P. 03/09/2019 N76.1 Subacute and chronic vaginitis Poncho Garsia N.P. 03/09/2019 Z90.710 Acquired absence of both cervix and uterus Poncho Garsia N.P. 03/09/2019 N95.9 Unspecified menopausal and perimenopausal Poncho Garsia N.P. disorder 03/09/2019 R06.02 Shortness of breath Poncho Garsia N.P. 03/09/2019 R05 Cough Poncho Garsia N.P. 03/09/2019 R09.81 Nasal congestion Poncho Garsia N.P. 03/09/2019 G56.23 Lesion of ulnar nerve, bilateral upper limbs Poncho Garsia N.P. 03/09/2019 K21.0 Gastro-esophageal reflux disease with aRdha Spears.PDavidson esophagitis 03/09/2019 N89.8 Other specified noninflammatory disorders of Poncho Garsia N.P. vagina 03/09/2019 G43.101 Migraine with aura, not intractable, with Poncho Garsia N.PDavidson status migrainosus 03/09/2019 M51.15 Intervertebral disc disorders with Poncho Garsia N.Peggy radiculopathy, thoracolumbar region 03/09/2019 R45.4 Irritability and anger Poncho Garsia N.P. 02/21/2019 Z11.1 Encounter for screening for respiratory Radha Spears.Peggy tuberculosis 02/21/2019 J44.9 Chronic obstructive pulmonary disease, Poncho Garsia N.P. unspecified 02/21/2019 L20.9 Atopic dermatitis, unspecified Poncho Garsia N.P. 02/21/2019 J30.9 Allergic rhinitis, unspecified Poncho Garsia N.P. 02/21/2019 H69.83 Other specified disorders of Eustachian Poncho Garsia N.P. tube, bilateral 02/21/2019 E55.9 Vitamin D deficiency, unspecified Poncho Garsia N.P. 02/21/2019 F17.210 Nicotine dependence, cigarettes, Poncho Garsia N.P. uncomplicated 02/21/2019 M54.2 Cervicalgia Poncho Garsia N.P. 02/21/2019 G56.00 Carpal tunnel syndrome, unspecified upper Poncho Garsia N.P. limb 02/21/2019 M51.37 Other intervertebral disc degeneration, Poncho Garsia N.P. lumbosacral region 02/21/2019 M25.559 Pain in unspecified hip Poncho Garsia N.P. 02/21/2019 M25.569 Pain in unspecified knee Poncho Garsia N.P. 02/21/2019 M79.606 Pain in leg, unspecified Poncho Garsia N.P. 02/21/2019 M79.639 Pain in unspecified forearm Poncho Garsia N.P. 02/21/2019 F33.9 Major depressive disorder, recurrent, Poncho Garsia N.P. unspecified 02/21/2019 G47.00 Insomnia, unspecified Poncho Garsia N.P. 02/21/2019 N80.3 Endometriosis of pelvic peritoneum Madie SpearsPDavidson 02/21/2019 N76.1 Subacute and chronic vaginitis Madie SpearsPDavidson 02/21/2019 Z90.710 Acquired absence of both cervix and uterus Radha Spears.PDavidson 02/21/2019 N95.9 Unspecified menopausal and perimenopausal Radha Spears.Peggy disorder 02/21/2019 R06.02 Shortness of breath Poncho Garsia N.P. 02/21/2019 R05 Cough Poncho Garsia N.PDavidson 02/21/2019 R09.81 Nasal congestion Poncho Garsia N.PDavidson 02/21/2019 G56.23 Lesion of ulnar nerve, bilateral upper limbs Radha Spears.PDavidson 02/21/2019 K21.0 Gastro-esophageal reflux disease with Poncho Garsia N.P. esophagitis 02/21/2019 N89.8 Other specified noninflammatory disorders of Poncho Garsia N.P. vagina 02/21/2019 G43.101 Migraine with aura, not intractable, with Poncho Garsia N.P. status migrainosus 02/21/2019 M51.15 Intervertebral disc disorders with Radha Spears.Peggy radiculopathy, thoracolum 02/21/2019 R45.4 Irritability and anger Radha Spears.PDavidson 02/19/2019 Z11.1 Encounter for screening for respiratory Poncho Garsia N.P. tuberculosis 02/19/2019 J44.9 Chronic obstructive pulmonary disease, Radha Spears.Peggy unspecified 02/19/2019 L20.9 Atopic dermatitis, unspecified Radha Spears.PDavidson 02/19/2019 J30.9 Allergic rhinitis, unspecified Poncho Garsia N.PDavidson 02/19/2019 H69.83 Other specified disorders of Eustachian Radha Spears.PDavidson tube, bilateral 02/19/2019 E55.9 Vitamin D deficiency, unspecified Poncho Garsia N.PDavidson 02/19/2019 F17.210 Nicotine dependence, cigarettes, Radha Spears.Peggy uncomplicated 02/19/2019 M54.2 Cervicalgia Madie SpearsPDavidson 02/19/2019 G56.00 Carpal tunnel syndrome, unspecified upper Radha Spears.Peggy limb 02/19/2019 M51.37 Other intervertebral disc degeneration, Poncho Garsia N.P. lumbosacral region 02/19/2019 M25.559 Pain in unspecified hip Radha Spears.PDavidson 02/19/2019 M25.569 Pain in unspecified knee Poncho Garsia N.PDavidson 02/19/2019 M79.606 Pain in leg, unspecified Poncho Garsia N.PDavidson 02/19/2019 M79.639 Pain in unspecified forearm Radha Spears.PDavidson 02/19/2019 F33.9 Major depressive disorder, recurrent, Poncho Garsia N.P. unspecified 02/19/2019 G47.00 Insomnia, unspecified Poncho Garsia N.PDavidson 02/19/2019 N80.3 Endometriosis of pelvic peritoneum Radha Spears.PDavidson 02/19/2019 N76.1 Subacute and chronic vaginitis Poncho Garsia N.PDavidson 02/19/2019 Z90.710 Acquired absence of both cervix and uterus Radha Spears.PDavidson 02/19/2019 N95.9 Unspecified menopausal and perimenopausal Poncho Garsia N.P. disorder 02/19/2019 R06.02 Shortness of breath Poncho Garsia N.PDavidson 02/19/2019 R05 Cough Poncho Garsia N.PDavidson 02/19/2019 R09.81 Nasal congestion Poncho Garsia N.PDavidson 02/19/2019 G56.23 Lesion of ulnar nerve, bilateral upper limbs Poncho Garsia N.PDavidson 02/19/2019 K21.0 Gastro-esophageal reflux disease with Poncho Garsia N.P. esophagitis 02/19/2019 N89.8 Other specified noninflammatory disorders of Poncho Garsia N.P. vagina 02/19/2019 G43.101 Migraine with aura, not intractable, with Poncho Garsia N.P. status migrainosus 02/19/2019 M51.15 Intervertebral disc disorders with Poncho Garsia N.P. radiculopathy, thoracolum 02/19/2019 R45.4 Irritability and anger Radha Spears.PDavidson 02/19/2019 Z23 Encounter for immunization Poncho Garsia N.P. 02/16/2019 Z11.1 Encounter for screening for respiratory Poncho Garsia N.P. tuberculosis 02/16/2019 J44.9 Chronic obstructive pulmonary disease, Poncho Garsia, N.P. unspecified 02/16/2019 L20.9 Atopic dermatitis, unspecified Poncho Garsia N.P. 02/16/2019 J30.9 Allergic rhinitis, unspecified Poncho Garsia N.P. 02/16/2019 H69.83 Other specified disorders of Eustachian Poncho Garsia N.P. tube, bilateral 02/16/2019 E55.9 Vitamin D deficiency, unspecified Poncho Garsia N.P. 02/16/2019 F17.210 Nicotine dependence, cigarettes, Poncho Garsia N.P. uncomplicated 02/16/2019 M54.2 Cervicalgia Poncho Garsia N.P. 02/16/2019 G56.00 Carpal tunnel syndrome, unspecified upper Poncho Garsia N.P. limb 02/16/2019 M51.37 Other intervertebral disc degeneration, Poncho Garsia N.P. lumbosacral region 02/16/2019 M25.559 Pain in unspecified hip Poncho Garsia N.P. 02/16/2019 M25.569 Pain in unspecified knee Poncho Garsia N.P. 02/16/2019 M79.606 Pain in leg, unspecified Poncho Garsia N.P. 02/16/2019 M79.639 Pain in unspecified forearm Poncho Garsia N.P. 02/16/2019 F33.9 Major depressive disorder, recurrent, Poncho Garsia N.P. unspecified 02/16/2019 G47.00 Insomnia, unspecified Poncho Garsia N.P. 02/16/2019 N80.3 Endometriosis of pelvic peritoneum Poncho Garsia N.P. 02/16/2019 N76.1 Subacute and chronic vaginitis Poncho Garsia N.P. 02/16/2019 Z90.710 Acquired absence of both cervix and uterus Poncho Garsia N.P. 02/16/2019 N95.9 Unspecified menopausal and perimenopausal Poncho Garsia N.P. disorder 02/16/2019 R06.02 Shortness of breath Poncho Garsia N.P. 02/16/2019 R05 Cough Poncho Garsia N.P. 02/16/2019 R09.81 Nasal congestion Poncho Garsia N.P. 02/16/2019 G56.23 Lesion of ulnar nerve, bilateral upper limbs Poncho Garsia N.P. 02/16/2019 K21.0 Gastro-esophageal reflux disease with aRdha Spears.PDavidson esophagitis 02/16/2019 N89.8 Other specified noninflammatory disorders of Radha Spears.Peggy vagina 02/16/2019 G43.101 Migraine with aura, not intractable, with Poncho Garsia N.P. status migrainosus 02/16/2019 M51.15 Intervertebral disc disorders with Radha Spears.Peggy radiculopathy, thoracolum 02/16/2019 R45.4 Irritability and anger Poncho Garsia N.PDavidson 02/16/2019 H00.025 Hordeolum internum left lower eyelid Poncho Garsia N.PDavidson 02/16/2019 Z13.89 Encounter for screening for other disorder Radha Spears.Peggy 02/14/2019 Z11.1 Encounter for screening for respiratory Radha Spears.Peggy tuberculosis 02/14/2019 J44.9 Chronic obstructive pulmonary disease, Poncho Garsia N.P. unspecified 02/14/2019 L20.9 Atopic dermatitis, unspecified Poncho Garsia N.P. 02/14/2019 J30.9 Allergic rhinitis, unspecified Poncho Garsia N.P. 02/14/2019 H69.83 Other specified disorders of Eustachian Poncho Garsia N.P. tube, bilateral 02/14/2019 E55.9 Vitamin D deficiency, unspecified Poncho Garsia N.P. 02/14/2019 F17.210 Nicotine dependence, cigarettes, Poncho Garsia N.P. uncomplicated 02/14/2019 M54.2 Cervicalgia Poncho Garsia N.P. 02/14/2019 G56.00 Carpal tunnel syndrome, unspecified upper Poncho Garsia N.PDavidson limb 02/14/2019 M51.37 Other intervertebral disc degeneration, Poncho Garsia N.P. lumbosacral region 02/14/2019 M25.559 Pain in unspecified hip Poncho Garsia N.P. 02/14/2019 M25.569 Pain in unspecified knee Poncho Garsia N.P. 02/14/2019 M79.606 Pain in leg, unspecified Poncho Garsia N.P. 02/14/2019 M79.639 Pain in unspecified forearm Poncho Garsia N.P. 02/14/2019 F33.9 Major depressive disorder, recurrent, Poncho Garsia N.P. unspecified 02/14/2019 G47.00 Insomnia, unspecified Poncho Garsia N.PDavidson 02/14/2019 N80.3 Endometriosis of pelvic peritoneum Poncho Garsia N.P. 02/14/2019 N76.1 Subacute and chronic vaginitis Madie SpearsPDavidson 02/14/2019 Z90.710 Acquired absence of both cervix and uterus Radha Spears.Peggy 02/14/2019 N95.9 Unspecified menopausal and perimenopausal Poncho Garsia N.P. disorder 02/14/2019 R06.02 Shortness of breath Poncho Garsia N.PDavidson 02/14/2019 R05 Cough Poncho Garsia N.PDavidson 02/14/2019 R09.81 Nasal congestion Radha Spears.Peggy 02/14/2019 G56.23 Lesion of ulnar nerve, bilateral upper limbs Radha Spears.PDavidson 02/14/2019 K21.0 Gastro-esophageal reflux disease with Poncho Garsia N.P. esophagitis 02/14/2019 N89.8 Other specified noninflammatory disorders of Poncho Garsia N.P. vagina 02/14/2019 G43.101 Migraine with aura, not intractable, with Poncho Garsia N.P. status migrainosus 02/14/2019 M51.15 Intervertebral disc disorders with Poncho Garsia N.P. radiculopathy, thoracolum 02/14/2019 R45.4 Irritability and anger Radha Spears.PDavidson 02/14/2019 H00.025 Hordeolum internum left lower eyelid Madie SpearsPDavidson 02/14/2019 Z13.89 Encounter for screening for other disorder Poncho Garsia N.P. 01/10/2019 J44.9 Chronic obstructive pulmonary disease, Poncho Garsia N.PDavidson unspecified 01/10/2019 L20.9 Atopic dermatitis, unspecified Poncho Garsia N.PDavidson 01/10/2019 J30.9 Allergic rhinitis, unspecified Poncho Garsia N.PDavidson 01/10/2019 H69.83 Other specified disorders of Eustachian Poncho Garsia N.P. tube, bilateral 01/10/2019 E55.9 Vitamin D deficiency, unspecified Poncho Garsia N.PDavidson 01/10/2019 F17.210 Nicotine dependence, cigarettes, Poncho Garsia N.P. uncomplicated 01/10/2019 M54.2 Cervicalgia Radha Spears.PDavidson 01/10/2019 G56.00 Carpal tunnel syndrome, unspecified upper Poncho Garsia N.P. limb 01/10/2019 M51.37 Other intervertebral disc degeneration, Radha Spears.Peggy lumbosacral region 01/10/2019 M25.559 Pain in unspecified hip Radha Spears.PDavidson 01/10/2019 M25.569 Pain in unspecified knee Radha Spears.PDavidson 01/10/2019 M79.606 Pain in leg, unspecified Poncho Garsia N.PDavidson 01/10/2019 M79.639 Pain in unspecified forearm Poncho Garsia N.PDavidson 01/10/2019 F33.9 Major depressive disorder, recurrent, Radha Spears.PDavidson unspecified 01/10/2019 G47.00 Insomnia, unspecified Poncho Garsia N.PDavidson 01/10/2019 N80.3 Endometriosis of pelvic peritoneum Radha Spears.Peggy 01/10/2019 N76.1 Subacute and chronic vaginitis Madie SpearsPDavidson 01/10/2019 Z90.710 Acquired absence of both cervix and uterus Poncho Garsia N.PDavidson 01/10/2019 N95.9 Unspecified menopausal and perimenopausal Poncho Garsia NSusan disorder 01/10/2019 R06.02 Shortness of breath Poncho Garsia NDavidsonPDavidson 01/10/2019 R05 Cough Poncho Garsia N.PDavidson 01/10/2019 R09.81 Nasal congestion Radha Spears.PDavidson 01/10/2019 G56.23 Lesion of ulnar nerve, bilateral upper limbs Poncho Garsia N.P. 01/10/2019 K21.0 Gastro-esophageal reflux disease with Poncho Garsia N.P. esophagitis 01/10/2019 N89.8 Other specified noninflammatory disorders of Poncho Garsia N.P. vagina 01/10/2019 G43.101 Migraine with aura, not intractable, with Poncho Garsia N.P. status migrainosus 01/10/2019 M51.15 Intervertebral disc disorders with Radha Spears.Peggy radiculopathy, thoracolum 01/10/2019 R45.4 Irritability and anger Radha Spears.PDavidson 01/10/2019 H00.025 Hordeolum internum left lower eyelid Poncho Garsia N.P. 01/05/2019 J44.9 Chronic obstructive pulmonary disease, Poncho Garsia N.P. unspecified 01/05/2019 L20.9 Atopic dermatitis, unspecified Poncho Garsia N.P. 01/05/2019 J30.9 Allergic rhinitis, unspecified Poncho Garsia N.P. 01/05/2019 H69.83 Other specified disorders of Eustachian Poncho Garsia N.P. tube, bilateral 01/05/2019 E55.9 Vitamin D deficiency, unspecified Poncho Garsia, N.P. 01/05/2019 F17.210 Nicotine dependence, cigarettes, Poncho Garsia N.P. uncomplicated 01/05/2019 M54.2 Cervicalgia Poncho Garsia N.P. 01/05/2019 G56.00 Carpal tunnel syndrome, unspecified upper Poncho Garsia N.P. limb 01/05/2019 M51.37 Other intervertebral disc degeneration, Poncho Garsia N.PDavidson lumbosacral region 01/05/2019 M25.559 Pain in unspecified hip Poncho Garsia N.P. 01/05/2019 M25.569 Pain in unspecified knee Poncho Garsia N.P. 01/05/2019 M79.606 Pain in leg, unspecified Poncho Garsia N.P. 01/05/2019 M79.639 Pain in unspecified forearm Poncho Garsia N.P. 01/05/2019 F33.9 Major depressive disorder, recurrent, Poncho Garsia N.P. unspecified 01/05/2019 G47.00 Insomnia, unspecified Poncho Garsia N.P. 01/05/2019 N80.3 Endometriosis of pelvic peritoneum Poncho Garsia N.P. 01/05/2019 N76.1 Subacute and chronic vaginitis Poncho Garsia N.P. 01/05/2019 Z90.710 Acquired absence of both cervix and uterus Poncho Garsia N.P. 01/05/2019 N95.9 Unspecified menopausal and perimenopausal Poncho Garsia N.P. disorder 01/05/2019 R06.02 Shortness of breath Poncho Garsia N.P. 01/05/2019 R05 Cough Poncho Garsia N.P. 01/05/2019 R09.81 Nasal congestion Poncho Garsia N.P. 01/05/2019 G56.23 Lesion of ulnar nerve, bilateral upper limbs Poncho Garsia N.P. 01/05/2019 K21.0 Gastro-esophageal reflux disease with Poncho Garsia N.P. esophagitis 01/05/2019 N89.8 Other specified noninflammatory disorders of Poncho Garsia N.P. vagina 01/05/2019 G43.101 Migraine with aura, not intractable, with Poncho Garsia N.P. status migrainosus 01/05/2019 M51.15 Intervertebral disc disorders with Poncho Garsia N.P. radiculopathy, thoracolum 01/05/2019 R45.4 Irritability and anger Poncho Garsia N.P. 01/05/2019 H00.025 Hordeolum internum left lower eyelid Poncho Garsia N.P. 01/02/2019 J44.9 Chronic obstructive pulmonary disease, Jose Elmore M.D. unspecified 01/02/2019 L20.9 Atopic dermatitis, unspecified Jose Elmore M.D. 01/02/2019 J30.9 Allergic rhinitis, unspecified Jose Elmore M.D. 01/02/2019 H69.83 Other specified disorders of Eustachian Jose Elmore M.D. tube, bilateral 01/02/2019 E55.9 Vitamin D deficiency, unspecified Jose Elmore M.D. 01/02/2019 F17.210 Nicotine dependence, cigarettes, Jose Elmore M.D. uncomplicated 01/02/2019 M54.2 Cervicalgia Jose Elmore M.D. 01/02/2019 G56.00 Carpal tunnel syndrome, unspecified upper Jose Elmore M.D. limb 01/02/2019 M51.37 Other intervertebral disc degeneration, Jose Elmore M.D. lumbosacral region 01/02/2019 M25.559 Pain in unspecified hip Jose Elmore M.D. 01/02/2019 M25.569 Pain in unspecified knee Jose Elmore M.D. 01/02/2019 M79.606 Pain in leg, unspecified Jose Elmore M.D. 01/02/2019 M79.639 Pain in unspecified forearm Jose Elmore M.D. 01/02/2019 F33.9 Major depressive disorder, recurrent, Jose Elmore M.D. unspecified 01/02/2019 G47.00 Insomnia, unspecified Jose Elmore M.D. 01/02/2019 N80.3 Endometriosis of pelvic peritoneum Jose Elmore M.D. 01/02/2019 N76.1 Subacute and chronic vaginitis Jose Elmore M.D. 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 01/02/2019 N95.9 Unspecified menopausal and perimenopausal Jose Elmore M.D. disorder 01/02/2019 R06.02 Shortness of breath Jose Elmore M.D. 01/02/2019 R05 Cough Jose Elmore M.D. 01/02/2019 R09.81 Nasal congestion Jose Elmore M.D. 01/02/2019 G56.23 Lesion of ulnar nerve, bilateral upper limbs Jose Elmore M.D. 01/02/2019 K21.0 Gastro-esophageal reflux disease with Jose Elmore M.D. esophagitis 01/02/2019 N89.8 Other specified noninflammatory disorders of Jose Elmore M.D. vagina 01/02/2019 G43.101 Migraine with aura, not intractable, with Jose Elmore M.D. status migrainosus 01/02/2019 M51.15 Intervertebral disc disorders with Jose Elmore M.D. radiculopathy, thoracolum 01/02/2019 R45.4 Irritability and anger Jose Elmore M.D. 01/02/2019 H00.025 Hordeolum internum left lower eyelid Ramírez, Jose Robledo M.D. 12/27/2018 J44.9 Chronic obstructive pulmonary disease, Poncho Garsia N.P. unspecified 12/27/2018 L20.9 Atopic dermatitis, unspecified Poncho Garsia N.P. 12/27/2018 J30.9 Allergic rhinitis, unspecified Poncho Garsia N.P. 12/27/2018 H69.83 Other specified disorders of Eustachian Poncho Garsia, N.P. tube, bilateral 12/27/2018 E55.9 Vitamin D deficiency, unspecified Poncho Garsia N.P. 12/27/2018 F17.210 Nicotine dependence, cigarettes, Poncho Garsia N.P. uncomplicated 12/27/2018 M54.2 Cervicalgia Poncho Garsia N.P. 12/27/2018 G56.00 Carpal tunnel syndrome, unspecified upper Poncho Garsia N.P. limb 12/27/2018 M51.37 Other intervertebral disc degeneration, Poncho Garsia N.P. lumbosacral region 12/27/2018 M25.559 Pain in unspecified hip Poncho Garsia N.P. 12/27/2018 M25.569 Pain in unspecified knee Poncho Garsia N.P. 12/27/2018 M79.606 Pain in leg, unspecified Poncho Garsia N.P. 12/27/2018 M79.639 Pain in unspecified forearm Poncho Garsia N.P. 12/27/2018 F33.9 Major depressive disorder, recurrent, Poncho Garsia N.P. unspecified 12/27/2018 G47.00 Insomnia, unspecified Poncho Garsia N.P. 12/27/2018 N80.3 Endometriosis of pelvic peritoneum Poncho Garsia N.P. 12/27/2018 N76.1 Subacute and chronic vaginitis Poncho Garsia N.P. 12/27/2018 Z90.710 Acquired absence of both cervix and uterus Poncho Garsia N.P. 12/27/2018 N95.9 Unspecified menopausal and perimenopausal Poncho Garsia N.P. disorder 12/27/2018 R06.02 Shortness of breath Poncho Garsia N.P. 12/27/2018 R09.81 Nasal congestion Poncho Garsia N.PDavidson 12/27/2018 G56.23 Lesion of ulnar nerve, bilateral upper limbs Poncho Garsia N.PDavidson 12/27/2018 K21.0 Gastro-esophageal reflux disease with Poncho Garsia N.P. esophagitis 12/27/2018 N89.8 Other specified noninflammatory disorders of Poncho Garsia N.PDavidson vagina 12/27/2018 G43.101 Migraine with aura, not intractable, with Radha Spears.Peggy status migrainosus 12/27/2018 M51.15 Intervertebral disc disorders with Radha Spears.Peggy radiculopathy, thoracolum 12/27/2018 J30.2 Other seasonal allergic rhinitis Poncho Garsia N.P. 12/27/2018 R45.4 Irritability and anger Poncho Garsia N.PDavidson 12/27/2018 H00.025 Hordeolum internum left lower eyelid Poncho Garsia N.P. 12/04/2018 J44.9 Chronic obstructive pulmonary disease, Poncho Garsia N.P. unspecified 12/04/2018 L20.9 Atopic dermatitis, unspecified Poncho Garsia N.P. 12/04/2018 J30.9 Allergic rhinitis, unspecified Poncho Garsia N.P. 12/04/2018 H69.83 Other specified disorders of Eustachian Poncho Garsia N.P. tube, bilateral 12/04/2018 E55.9 Vitamin D deficiency, unspecified Poncho Garsia N.P. 12/04/2018 F17.210 Nicotine dependence, cigarettes, Poncho Garsia N.P. uncomplicated 12/04/2018 M54.2 Cervicalgia Poncho Garsia N.PDavidson 12/04/2018 G56.00 Carpal tunnel syndrome, unspecified upper Poncho Garsia N.PDavidson limb 12/04/2018 M51.37 Other intervertebral disc degeneration, Poncho Garsia N.P. lumbosacral region 12/04/2018 M25.559 Pain in unspecified hip Poncho Garsia N.P. 12/04/2018 M25.569 Pain in unspecified knee Poncho Garsia N.P. 12/04/2018 M79.606 Pain in leg, unspecified Poncoh Garsia N.P. 12/04/2018 M79.639 Pain in unspecified forearm Poncho Garsia N.P. 12/04/2018 F33.9 Major depressive disorder, recurrent, Poncho Garsia, N.P. unspecified 12/04/2018 G47.00 Insomnia, unspecified Poncho Garsia N.P. 12/04/2018 N80.3 Endometriosis of pelvic peritoneum Poncho Garsia N.PDavidson 12/04/2018 N76.1 Subacute and chronic vaginitis Poncho Garsia N.P. 12/04/2018 Z90.710 Acquired absence of both cervix and uterus Poncho Garsia N.P. 12/04/2018 N95.9 Unspecified menopausal and perimenopausal Poncho Garsia N.P. disorder 12/04/2018 R06.02 Shortness of breath Poncho Garsia N.P. 12/04/2018 R09.81 Nasal congestion Poncho Garsia N.P. 12/04/2018 G56.23 Lesion of ulnar nerve, bilateral upper limbs Poncho Garsia N.P. 12/04/2018 K21.0 Gastro-esophageal reflux disease with Poncho Garsia N.PDavidson esophagitis 12/04/2018 N89.8 Other specified noninflammatory disorders of Poncho Garsia N.PDavidson vagina 12/04/2018 G43.101 Migraine with aura, not intractable, with Poncho Garsia N.PDavidson status migrainosus 12/04/2018 R11.0 Nausea Poncho Garsia N.P. 12/04/2018 H66.93 Otitis media, unspecified, bilateral Poncho Garsia N.P. 12/04/2018 M51.15 Intervertebral disc disorders with Poncho Garsia N.PDavidson radiculopathy, thoracolum 12/04/2018 J20.9 Acute bronchitis, unspecified Poncho Garsia N.P. 12/04/2018 J30.2 Other seasonal allergic rhinitis Poncho Garsia N.P. 12/04/2018 J02.9 Acute pharyngitis, unspecified Poncho Garsia N.P. 12/04/2018 H92.03 Otalgia, bilateral Poncho Garsia N.P. 11/29/2018 J44.9 Chronic obstructive pulmonary disease, Poncho Garsia N.P. unspecified 11/29/2018 L20.9 Atopic dermatitis, unspecified Poncho Garsia N.P. 11/29/2018 J30.9 Allergic rhinitis, unspecified Poncho Garsia N.P. 11/29/2018 H69.83 Other specified disorders of Eustachian Poncho Garsia N.P. tube, bilateral 11/29/2018 E55.9 Vitamin D deficiency, unspecified Poncho Garsia N.P. 11/29/2018 F17.210 Nicotine dependence, cigarettes, Poncho Garsia N.PDavidson uncomplicated 11/29/2018 M54.2 Cervicalgia Poncho Garsia N.P. 11/29/2018 G56.00 Carpal tunnel syndrome, unspecified upper Poncho Garsia N.P. limb 11/29/2018 M51.37 Other intervertebral disc degeneration, Poncho Garsia N.PDavidson lumbosacral region 11/29/2018 M25.559 Pain in unspecified hip Poncho Garsia N.P. 11/29/2018 M25.569 Pain in unspecified knee Poncho Garsia N.PDavidson 11/29/2018 M79.606 Pain in leg, unspecified Poncho Garsia N.PDavidson 11/29/2018 M79.639 Pain in unspecified forearm Poncho Garsia N.PDavidson 11/29/2018 F33.9 Major depressive disorder, recurrent, Poncho Garsia N.PDavidson unspecified 11/29/2018 G47.00 Insomnia, unspecified Poncho Garsia N.PDavidson 11/29/2018 N80.3 Endometriosis of pelvic peritoneum Poncho Garsia N.PDavidson 11/29/2018 N76.1 Subacute and chronic vaginitis Poncho Garsia N.PDavidson 11/29/2018 Z90.710 Acquired absence of both cervix and uterus Poncho Garsia N.P. 11/29/2018 N95.9 Unspecified menopausal and perimenopausal Poncho Garsia N.PDavidson disorder 11/29/2018 R06.02 Shortness of breath Poncho Garsia N.PDavidson 11/29/2018 R05 Cough Poncho Garsia N.PDavidson 11/29/2018 R09.81 Nasal congestion Poncho Garsia N.PDavidson 11/29/2018 G56.23 Lesion of ulnar nerve, bilateral upper limbs Poncho Garsia N.PDavidson 11/29/2018 K21.0 Gastro-esophageal reflux disease with Radha Spears.Peggy esophagitis 11/29/2018 N89.8 Other specified noninflammatory disorders of Poncho Garsia N.Peggy vagina 11/29/2018 G43.101 Migraine with aura, not intractable, with Poncho Garsia N.P. status migrainosus 11/29/2018 R11.0 Nausea Poncho Garsia N.Peggy 11/29/2018 H66.93 Otitis media, unspecified, bilateral Poncho Garsia, N.P. 11/29/2018 M51.15 Intervertebral disc disorders with Poncho Garsia N.PDavidson radiculopathy, thoracolum 11/01/2018 J44.9 Chronic obstructive pulmonary disease, Poncho Garsia N.P. unspecified 11/01/2018 L20.9 Atopic dermatitis, unspecified Poncho Garsia N.P. 11/01/2018 J30.9 Allergic rhinitis, unspecified Poncho Garsia, N.P. 11/01/2018 H69.83 Other specified disorders of Eustachian Poncho Garsia, N.P. tube, bilateral 11/01/2018 E55.9 Vitamin D deficiency, unspecified Poncho Garsia, N.P. 11/01/2018 F17.210 Nicotine dependence, cigarettes, Poncho Garsia N.P. uncomplicated 11/01/2018 M54.2 Cervicalgia Poncho Garsia N.P. 11/01/2018 G56.00 Carpal tunnel syndrome, unspecified upper Poncho Garsia N.P. limb 11/01/2018 M51.37 Other intervertebral disc degeneration, Poncho Garsia N.P. lumbosacral region 11/01/2018 M25.559 Pain in unspecified hip Poncho Garsia N.P. 11/01/2018 M25.569 Pain in unspecified knee Poncho Garsia N.P. 11/01/2018 M79.606 Pain in leg, unspecified Poncho Garsia N.P. 11/01/2018 M79.639 Pain in unspecified forearm Poncho Garsia N.P. 11/01/2018 F33.9 Major depressive disorder, recurrent, Poncho Garsia N.P. unspecified 11/01/2018 G47.00 Insomnia, unspecified Poncho Garsia, N.P. 11/01/2018 N80.3 Endometriosis of pelvic peritoneum Poncho Garsia N.P. 11/01/2018 N76.1 Subacute and chronic vaginitis Poncho Garsia N.P. 11/01/2018 Z90.710 Acquired absence of both cervix and uterus Poncho Garsia N.P. 11/01/2018 N95.9 Unspecified menopausal and perimenopausal Poncho Garsia N.P. disorder 11/01/2018 R06.02 Shortness of breath Poncho Garsia N.P. 11/01/2018 R05 Cough Radha Spears.PDavidson 11/01/2018 R09.81 Nasal congestion Poncho Garsia N.P. 11/01/2018 G56.23 Lesion of ulnar nerve, bilateral upper limbs Radha Spears.PDavidson 11/01/2018 K21.0 Gastro-esophageal reflux disease with Poncho Garsia N.P. esophagitis 11/01/2018 N89.8 Other specified noninflammatory disorders of Poncho Garsia N.P. vagina 11/01/2018 G43.101 Migraine with aura, not intractable, with Poncho Garsia N.P. status migrainosus 11/01/2018 R11.0 Nausea Radha Spears.PDavidson 11/01/2018 H66.93 Otitis media, unspecified, bilateral Poncho Garsia N.P. Plan of Treatment Future Appointment(s):05/18/2019 9:00 am - Poncho Garsia N.P. at [facility] Functional Status Functional Condition Comment Date Status Glasses Active Bifocal glasses Active Mental Status Description No Information Available Referrals Refer to Reason for Referral Status Appt Date [facility] continuing care, PT OVER DUE FOR FOLLOW UP Closed [address] [facility] [address] [place] [address] [phone] [employer] Closed 12/26/2018 [address] [facility] [place] [address] [phone] Gayr Loaiza M.D [facility] [facility] Closed [address] [place], [place] [id number] [phone]
--- OUTSIDE RECORDS SUMMARY | 2019-05-01 15:38 | XMS REPORT | Continuity of Care Document ---
:1970 External Reference #:[id number] Author Name Poncho Garsia N.P. Address [address] [place] [address] [address] [place] [address] Care Team Providers Name Role Phone Jose Elmore MD - Family Medicine Care Team Information Cardiopulmonary Specialist [phone] Problems Active Problems Provider Date Arthralgia of the lower leg Vazquez Tremaine MEDICAL ARTIST Onset: 07/18/2013 Tobacco user Tremaine Shukla MEDICAL ARTIST Onset: 08/01/2013 Recurrent depression Margareth Butts FNP [...] Medications SIG Qnty Indications Ordering Date Provider Percocet One Tab PO Q4H 120tabs M51.15 Jose Elmore 01/05/2019 5-325mg Tablets prn Severe Pain M., M.D. Cyclobenzaprine HCL take one tablet 90tabs M51.15 [facility] 01/05/2019 10mg by mouth three M., M.D. Tablets times a day as needed Claritin 1 by mouth 30caps H69.83 [facility] 12/27/2018 10mg Capsules every day M., M.D. Gentamicin Sulfate 2 drop both 5ml H00.025 [facility] 12/27/2018 0.3% eyes four times M., M.D. Solution a day X10 Days Nicotrol inhale one by 168units F17.210 [facility] 11/29/2018 10mg Inhaler mouth every 4 M., M.D. hours as needed Nortriptyline HCL 1 cap by mouth 30caps M51.37 [facility] 11/29/2018 75mg at bedtime M., M.D. Capsules Sumatriptan Succinate Take 1 Tablet 14tabs G43.101 [facility] 10/26/2018 50mg By Mouth as M., M.D. Tablets Needed For Headache May Repeat 1 Time If No Relief In 2 Hours Ondansetron HCL take one tablet 30tabs R11.0 [facility] 10/16/2018 4mg Tablets by mouth every M., M.D. 4 hours as needed (maximum daily dose =6) Proair HFA inhale 2 puffs 17gm J20.9 [facility] 07/17/2018 108(90Base) by mouth every M., M.D. mcg/Act Aerosol 4 hours if needed Pennsaid apply to elbow M54.2 [facility] 06/13/2018 2% Solution and knees bid M., M.D. M25.569 M79.639 Gabapentin 1 tab by mouth 90tabs M54.2 Ramírez, oumou Robledo, 06/13/2018 600mg Tablets three times a day M.D. M79.639 M79.606 Yuvafem 1 vaginal every day 30tabs N89.8 Ramírez, oumou Robledo, 06/13/2018 10mcg Tablets M.D. Omeprazole 1 by mouth every day 30caps K21.0 RamírezJose emmanuel M., 06/13/2018 20mg Capsules M.DDavidson KEARNS Fluoxetine HCL take 2 capsules at 180caps F41.9 [facility] 20mg bedtime M.DDavidson Capsules F33.9 History Medications Prednisone 2 tab by mouth daily 4 30tabs M51.15 [facility] 01/05/2019 - 20mg days,30mg Dennis Robledo 01/09/2019 Tablets x3d,86srz3w,53cxy0d Azithromycin 1 tab by mouth every day 10tabs J20.9 [facility] 2018 - x 10 days Dennis Robledo 12/03/2018 500mg Tablets Azithromycin z jd uad 6tabs J20.9 [facility] 12/04/2018 - Dennis Robledo 12/25/2018 250mg Tablets Claritin 1 by mouth every day 30tabs J02.9 [facility] 12/04/2018 - 10mg Dennis Robledo 12/25/2018 Tablets Imitrex one tab by mouth as 14tabs G43.101 [facility] 10/16/2018 - 50mg needed headache, october Dennis oRbledo 10/26/2018 Tablets repeat x 1 if no relief in 2 hours. Ibuprofen take one tablet by mouth 90tabs G43.101 [facility] 10/16/2018 - 600mg three times daily with MDennis Cedeño 12/25/2018 Tablets food as Needed For Headache Amoxicillin/Clavul 1 tab by mouth twice a 30tabs H66.93 [facility] 10/16 - anate Potassium day Dennis Robledo 11/29/2018 875-125mg Tablets Medications Administered in Office Medication SIG Qnty Indications Ordering Provider Date Intradermal Mantoux Poncho Garsia, N.P. 02/19/2019 Injection Intradermal Mantoux Poncho Garsia, N.P. 02/14/2019 Injection Immunizations CPT Code Status Date Vaccine Lot # [id number] Given 02/19/2019 MMR 11671 Given 02/19/2019 Flu Virus Vaccine, Quadrivalent, Slit Virus, Im [id number] Use [id number] Given 06/17/2014 Flu Vaccine [id number] Refused 05/17/2014 Flu Vaccine Vital Signs Date Vital Result Comment 03/09/2019 2:19pm BP Systolic 142 mmHg BP Diastolic 60 mmHg Height 60.75 inches 5'0.75" Heart Rate 75 /min Respiratory Rate 16 /min 02/21/2019 9:18am BP Systolic 112 mmHg BP Diastolic 62 mmHg Height 60.75 inches 5'0.75" Weight 147.00 lb BMI (Body Mass Index) 28.0 kg/m2 Heart Rate 97 /min Respiratory Rate 16 /min Results Test Date Facility Test Result H/L Range Note Laboratory test 02/14/2019 Lab [place] Measles Igg POSITIVE AI 1 finding 113 [...] vaccination. Procedures Date Code Description Status 12/04/2018 37384 Spirometry Completed 12/04/2018 24023 Tympanometry Completed 06/06/2012 [id number] Mammogram Completed Medical Devices Description No Information Available Encounters Type Date Location Provider Dx Diagnosis Office Visit 03/09/2019 [facility] Malcolm Spears11.1 Encounter for 2:30p N.P. screening for respiratory tuberculosis J44.9 Chronic [...] Irritability and anger Office Visit 02/21/2019 9:15a [facility] Poncho Garsia Z11.1 Encounter for N.P. screening [...] Irritability and anger Office Visit 02/19/2019 11:30a [facility] Poncho Garsia Z11.1 Encounter for N.P. screening [...] Encounter for immunization Office Visit 02/14/2019 10:00a [facility] Poncho Garsia Z11.1 Encounter for N.P. screening [...] for other disorder Office Visit 01/10/2019 8:30a [facility] Arden Spears.9 Chronic obstructive N.P. pulmonary disease, unspecified L20.9 [...] left lower eyelid Office Visit 01/05/2019 10:30a [facility] Poncho Garsia, J44.9 Chronic obstructive N.P. [...] left lower eyelid Office Visit 12/27/2018 8:45a [facility] Poncho Garsia J44.9 Chronic obstructive N.P. [...] left lower eyelid Office Visit 12/04/2018 11:00a [facility] Poncho Garsia, J44.9 Chronic obstructive N.P. [...] H92.03 Otalgia, bilateral Office Visit 11/29/2018 8:45a [facility] Poncho Garsia J44.9 Chronic obstructive N.P. [...] radiculopathy, thoracolumbar region Office Visit 11/01/2018 8:45a [facility] Poncho Garsia J44.9 Chronic obstructive N.P. [...] media, unspecified, bilateral Office Visit 10/16/2018 2:00p [facility] Ary Spears44.9 Chronic obstructive N.P. pulmonary disease, unspecified L20.9 [...] media, unspecified, bilateral Office Visit 10/05/2018 10:00a [facility] Jose Elmore J44.9 Chronic obstructive M., MDavidsonD. pulmonary disease, unspecified L20.9 Atopic dermatitis, unspecified [...] N89.8 Other specified noninflammatory disorders of vagina Assessments Date Code Description Provider 03/09/2019 Z11.1 Encounter for screening for respiratory Poncho Garsia N.PDavidson tuberculosis 03/09/2019 J44.9 Chronic obstructive pulmonary disease, Poncho Garsia N.P. unspecified 03/09/2019 L20.9 Atopic dermatitis, unspecified Poncho Garsia N.P. 03/09/2019 J30.9 Allergic rhinitis, unspecified Poncho Garsia N.P. 03/09/2019 H69.83 Other specified disorders of [...] Pain in unspecified knee Poncho Garsia N.PDavidson 03/09/2019 M79.606 Pain in leg, unspecified Poncho Garsia N.PDavidson 03/09/2019 M79.639 Pain in unspecified forearm Radha Spears.PDavidson 03/09/2019 F33.9 Major depressive disorder, recurrent, Radha Spears.PDavidson unspecified 03/09/2019 G47.00 Insomnia, unspecified Poncho Garsia N.PDavidson 03/09/2019 N80.3 Endometriosis of pelvic peritoneum Poncho Garsia N.PDavidson 03/09/2019 N76.1 Subacute and chronic vaginitis Poncho Garsia N.PDavidson 03/09/2019 Z90.710 Acquired absence of both cervix and uterus Radha Spears.PDavidson 03/09/2019 N95.9 Unspecified menopausal and perimenopausal Poncho Garsia N.PDavidson disorder 03/09/2019 R06.02 Shortness of breath Radha Spears.PDavidson 03/09/2019 R05 Cough Radha Spears.PDavidson 03/09/2019 R09.81 Nasal congestion Poncho Garsia N.PDavidson 03/09/2019 G56.23 Lesion of ulnar nerve, bilateral upper limbs Poncho Garsia N.PDavidson 03/09/2019 K21.0 Gastro-esophageal reflux disease with Poncho Garsia N.P. esophagitis 03/09/2019 N89.8 Other specified noninflammatory disorders of Poncho Garsia N.P. vagina 03/09/2019 G43.101 Migraine with aura, not intractable, with Poncho Garsia N.P. status migrainosus 03/09/2019 M51.15 Intervertebral disc disorders with Poncho Garsia N.P. radiculopathy, thoracolumbar region 03/09/2019 R45.4 Irritability and anger Poncho Garsia N.PDavidson 02/21/2019 Z11.1 Encounter for screening for respiratory Poncho Garsia N.P. tuberculosis 02/21/2019 J44.9 Chronic obstructive pulmonary disease, Poncho Garsia N.P. unspecified 02/21/2019 L20.9 Atopic dermatitis, unspecified Poncho Garsia N.PDavidson 02/21/2019 J30.9 Allergic rhinitis, unspecified Madie SpearsPDavidson 02/21/2019 H69.83 Other specified disorders of Eustachian Poncho Garsia, N.P. tube, bilateral 02/21/2019 E55.9 Vitamin D deficiency, unspecified Poncho Garsia N.P. 02/21/2019 F17.210 Nicotine dependence, cigarettes, Poncho Garsia N.P. uncomplicated 02/21/2019 M54.2 Cervicalgia Poncho Garsia N.P. 02/21/2019 G56.00 Carpal tunnel syndrome, unspecified upper Poncho Garsia N.P. limb 02/21/2019 M51.37 Other intervertebral disc degeneration, Poncho Garsia N.PDavidson lumbosacral region 02/21/2019 M25.559 Pain in unspecified hip Poncho Garsia N.P. 02/21/2019 M25.569 Pain in unspecified knee Poncho Garsia N.P. 02/21/2019 M79.606 Pain in leg, unspecified Poncho Garsia N.P. 02/21/2019 M79.639 Pain in unspecified forearm Poncho Garsia N.P. 02/21/2019 F33.9 Major depressive disorder, recurrent, Poncho Garsia N.P. unspecified 02/21/2019 G47.00 Insomnia, unspecified Poncho Garsia N.P. 02/21/2019 N80.3 Endometriosis of pelvic peritoneum Poncho Garsia N.PDavidson 02/21/2019 N76.1 Subacute and chronic vaginitis Poncho Garsia N.PDavidson 02/21/2019 Z90.710 Acquired absence of both cervix and uterus Poncho Garsia N.P. 02/21/2019 N95.9 Unspecified menopausal and perimenopausal Poncho Garsia N.PDavidson disorder 02/21/2019 R06.02 Shortness of breath Poncho Garsia N.P. 02/21/2019 R05 Cough Poncho Garsia N.P. 02/21/2019 R09.81 Nasal congestion Poncho Garsia N.P. 02/21/2019 G56.23 Lesion of ulnar nerve, bilateral upper limbs Poncho Garsia N.PDavidson 02/21/2019 K21.0 Gastro-esophageal reflux disease with Poncho Garsia N.PDavidson esophagitis 02/21/2019 N89.8 Other specified noninflammatory disorders of Poncho Garsia N.PDavidson vagina 02/21/2019 G43.101 Migraine with aura, not intractable, with Poncho Garsia N.PDavidson status migrainosus 02/21/2019 M51.15 Intervertebral disc disorders with Poncho Garsia N.PDavidson radiculopathy, thoracolum 02/21/2019 R45.4 Irritability and anger Poncho Garsia N.P. 02/19/2019 Z11.1 Encounter for screening for respiratory Poncho Garsia N.Peggy tuberculosis 02/19/2019 J44.9 Chronic obstructive pulmonary disease, Poncho Garsia N.P. unspecified 02/19/2019 L20.9 Atopic dermatitis, unspecified Poncho Garsia N.P. 02/19/2019 J30.9 Allergic rhinitis, unspecified Poncho Garsia, N.P. 02/19/2019 H69.83 Other specified disorders of Eustachian Poncho Garsia N.PDavidson tube, bilateral 02/19/2019 E55.9 Vitamin D deficiency, unspecified Poncho Garsia N.P. 02/19/2019 F17.210 Nicotine dependence, cigarettes, Poncho Garsia N.P. uncomplicated 02/19/2019 M54.2 Cervicalgia Poncho Garsia N.P. 02/19/2019 G56.00 Carpal tunnel syndrome, unspecified upper Poncho Garsia, N.P. limb 02/19/2019 M51.37 Other intervertebral disc degeneration, Poncho Garsia N.P. lumbosacral region 02/19/2019 M25.559 Pain in unspecified hip Poncho Garsia N.P. 02/19/2019 M25.569 Pain in unspecified knee Poncho Garsia N.P. 02/19/2019 M79.606 Pain in leg, unspecified Poncho Garsia N.P. 02/19/2019 M79.639 Pain in unspecified forearm Poncho Garsia N.P. 02/19/2019 F33.9 Major depressive disorder, recurrent, Poncho Garsia N.P. unspecified 02/19/2019 G47.00 Insomnia, unspecified Poncho Garsia N.P. 02/19/2019 N80.3 Endometriosis of pelvic peritoneum Poncho Garsia N.P. 02/19/2019 N76.1 Subacute and chronic vaginitis Poncho Garsia N.P. 02/19/2019 Z90.710 Acquired absence of both cervix and uterus Poncho Garsia N.P. 02/19/2019 N95.9 Unspecified menopausal and perimenopausal Poncho Garsia N.PDavidson disorder 02/19/2019 R06.02 Shortness of breath Poncho Garsia N.P. 02/19/2019 R05 Cough Poncho Garsia N.P. 02/19/2019 R09.81 Nasal congestion Poncho Garsia N.P. 02/19/2019 G56.23 Lesion of ulnar nerve, bilateral upper limbs Poncho Garsia N.P. 02/19/2019 K21.0 Gastro-esophageal reflux disease with Poncho Garsia N.P. esophagitis 02/19/2019 N89.8 Other specified noninflammatory disorders of Poncho Garsia N.PDavidson vagina 02/19/2019 G43.101 Migraine with aura, not intractable, with Radha Speasr.Peggy status migrainosus 02/19/2019 M51.15 Intervertebral disc disorders with Radha Spears.Peggy radiculopathy, thoracolum 02/19/2019 R45.4 Irritability and anger Poncho Garsia N.PDavidson 02/19/2019 Z23 Encounter for immunization Radha Spears.ePggy 02/16/2019 Z11.1 Encounter for screening for respiratory Radha Spears.PDavidson tuberculosis 02/16/2019 J44.9 Chronic obstructive pulmonary disease, Poncho Garsia N.P. unspecified 02/16/2019 L20.9 Atopic dermatitis, unspecified Poncho Garsia N.P. 02/16/2019 J30.9 Allergic rhinitis, unspecified Poncho Garsia N.P. 02/16/2019 H69.83 Other specified disorders of Eustachian Poncho Garsia N.P. tube, bilateral 02/16/2019 E55.9 Vitamin D deficiency, unspecified Poncho Garsia N.P. 02/16/2019 F17.210 Nicotine dependence, cigarettes, Poncho Garsia N.P. uncomplicated 02/16/2019 M54.2 Cervicalgia Poncho Garsia N.PDavidson 02/16/2019 G56.00 Carpal tunnel syndrome, unspecified upper Poncho Garsia N.P. limb 02/16/2019 M51.37 Other intervertebral disc degeneration, Poncho Garsia N.P. lumbosacral region 02/16/2019 M25.559 Pain in unspecified hip Poncho Garsia N.P. 02/16/2019 M25.569 Pain in unspecified knee Poncho Garsia N.P. 02/16/2019 M79.606 Pain in leg, unspecified Poncho Garsia N.PDavidson 02/16/2019 M79.639 Pain in unspecified forearm Madie SpearsPDavidson 02/16/2019 F33.9 Major depressive disorder, recurrent, Radha Spears.Peggy unspecified 02/16/2019 G47.00 Insomnia, unspecified Poncho Garsia N.PDavidson 02/16/2019 N80.3 Endometriosis of pelvic peritoneum Madie SpearsPDavidson 02/16/2019 N76.1 Subacute and chronic vaginitis Radha Spears.PDavidson 02/16/2019 Z90.710 Acquired absence of both cervix and uterus Radha Spears.PDavidson 02/16/2019 N95.9 Unspecified menopausal and perimenopausal Poncho Garsia NSusan disorder 02/16/2019 R06.02 Shortness of breath Radha Spears.PDavidson 02/16/2019 R05 Cough Radha Spears.PDavidson 02/16/2019 R09.81 Nasal congestion Poncho Garsia N.P. 02/16/2019 G56.23 Lesion of ulnar nerve, bilateral upper limbs Madie SpearsPDavidson 02/16/2019 K21.0 Gastro-esophageal reflux disease with Poncho Garsia N.P. esophagitis 02/16/2019 N89.8 Other specified noninflammatory disorders of Poncho Garsia N.P. vagina 02/16/2019 G43.101 Migraine with aura, not intractable, with Poncho Garsia N.P. status migrainosus 02/16/2019 M51.15 Intervertebral disc disorders with Poncho Garsia N.P. radiculopathy, thoracolum 02/16/2019 R45.4 Irritability and anger Madie SpearsPDavidson 02/16/2019 H00.025 Hordeolum internum left lower eyelid Madei SpearsPDavidson 02/16/2019 Z13.89 Encounter for screening for other disorder Poncho Garsia N.P. 02/14/2019 Z11.1 Encounter for screening for respiratory Poncho Garsia N.P. tuberculosis 02/14/2019 J44.9 Chronic obstructive pulmonary disease, Radha Spears.PDavidson unspecified 02/14/2019 L20.9 Atopic dermatitis, unspecified Madie SpearsPDavidson 02/14/2019 J30.9 Allergic rhinitis, unspecified Madie SpearsPDavidson 02/14/2019 H69.83 Other specified disorders of Eustachian Poncho Garsia N.PDavidson tube, bilateral 02/14/2019 E55.9 Vitamin D deficiency, unspecified Poncho Garsia N.P. 02/14/2019 F17.210 Nicotine dependence, cigarettes, Poncho Garsia N.P. uncomplicated 02/14/2019 M54.2 Cervicalgia Poncho Garsia N.P. 02/14/2019 G56.00 Carpal tunnel syndrome, unspecified upper Poncho Garsia N.P. limb 02/14/2019 M51.37 Other intervertebral disc degeneration, [...] unspecified 02/14/2019 G47.00 Insomnia, unspecified Poncho Garsia N.P. 02/14/2019 N80.3 Endometriosis of pelvic peritoneum Poncho Garsia N.P. 02/14/2019 N76.1 Subacute and chronic vaginitis Poncho Garsia N.P. 02/14/2019 Z90.710 Acquired absence of both cervix and uterus Poncho Garsia N.P. 02/14/2019 N95.9 Unspecified menopausal and perimenopausal Poncho Garsia N.PDavidson disorder 02/14/2019 R06.02 Shortness of breath Poncho Garsia N.P. 02/14/2019 R05 Cough Poncho Garsia N.P. 02/14/2019 R09.81 Nasal congestion Poncho Garsia N.P. 02/14/2019 G56.23 Lesion of ulnar nerve, bilateral upper limbs Poncho Garsia N.P. 02/14/2019 K21.0 Gastro-esophageal reflux disease with Poncho Garsia N.PDavidson esophagitis 02/14/2019 N89.8 Other specified noninflammatory disorders of Poncho Garsia N.PDavidson vagina 02/14/2019 G43.101 Migraine with aura, not intractable, with Radha Spears.Peggy status migrainosus 02/14/2019 M51.15 Intervertebral disc disorders with Radha Spears.Peggy radiculopathy, thoracolum 02/14/2019 R45.4 Irritability and anger Poncho Garsia N.P. 02/14/2019 H00.025 Hordeolum internum left lower eyelid Poncho Garsia N.PDavidson 02/14/2019 Z13.89 Encounter for screening for other disorder Poncho Garsia N.PDavidson 01/10/2019 J44.9 Chronic obstructive pulmonary disease, Poncho Garsia N.P. unspecified 01/10/2019 L20.9 Atopic dermatitis, unspecified Poncho Garsia N.PDavidson 01/10/2019 J30.9 Allergic rhinitis, unspecified Poncho Garsia N.PDavidson 01/10/2019 H69.83 Other specified disorders of Eustachian Poncho Garsia N.PDavidson tube, bilateral 01/10/2019 E55.9 Vitamin D deficiency, unspecified Poncho Garsia N.P. 01/10/2019 F17.210 Nicotine dependence, cigarettes, Poncho Garsia N.P. uncomplicated 01/10/2019 M54.2 Cervicalgia Poncho Garsia N.PDavidson 01/10/2019 G56.00 Carpal tunnel syndrome, unspecified upper Poncho Garsia N.PDavidson limb 01/10/2019 M51.37 Other intervertebral disc degeneration, Poncho Garsia N.PDavidson lumbosacral region 01/10/2019 M25.559 Pain in unspecified hip Poncho Garsia N.P. 01/10/2019 M25.569 Pain in unspecified knee Poncho Garsia N.PDavidson 01/10/2019 M79.606 Pain in leg, unspecified Poncho Garsia N.P. 01/10/2019 M79.639 Pain in unspecified forearm Poncho Garsia N.PDavidson 01/10/2019 F33.9 Major depressive disorder, recurrent, Poncho Garsia N.PDavidson unspecified 01/10/2019 G47.00 Insomnia, unspecified Poncho Garsia N.P. 01/10/2019 N80.3 Endometriosis of pelvic peritoneum Poncho Garsia N.PDavidson 01/10/2019 N76.1 Subacute and chronic vaginitis Poncho Garsia N.PDavidson 01/10/2019 Z90.710 Acquired absence of both cervix and uterus Poncho Garsia N.P. 01/10/2019 N95.9 Unspecified menopausal and perimenopausal Poncho Garsia NSusan disorder 01/10/2019 R06.02 Shortness of breath Poncho Garsia N.PDavidson 01/10/2019 R05 Cough Poncho Garsia N.PDavidson 01/10/2019 R09.81 Nasal congestion Poncho Garsia N.PDavidson 01/10/2019 G56.23 Lesion of ulnar nerve, bilateral upper limbs Poncho Garsia N.PDavidson 01/10/2019 K21.0 Gastro-esophageal reflux disease with Poncho Garsia N.PDavidson esophagitis 01/10/2019 N89.8 Other specified noninflammatory disorders of Poncho Garsia N.P. vagina 01/10/2019 G43.101 Migraine with aura, not intractable, with Radha Spears.Peggy status migrainosus 01/10/2019 M51.15 Intervertebral disc disorders with Radha Spears.Peggy radiculopathy, thoracolum 01/10/2019 R45.4 Irritability and anger Poncho Garsia N.PDavidson 01/10/2019 H00.025 Hordeolum internum left lower eyelid Poncho Garsia N.PDavidson 01/05/2019 J44.9 Chronic obstructive pulmonary disease, Poncho Garsia N.PDavidson unspecified 01/05/2019 L20.9 Atopic dermatitis, unspecified Poncho Garsia N.P. 01/05/2019 J30.9 Allergic rhinitis, unspecified Poncho Garsia N.P. 01/05/2019 H69.83 Other specified disorders of Eustachian Poncho Garsia N.PDavidson tube, bilateral 01/05/2019 E55.9 Vitamin D deficiency, unspecified Poncho Garsia N.P. 01/05/2019 F17.210 Nicotine dependence, cigarettes, Poncho Garsia N.PDavidson uncomplicated 01/05/2019 M54.2 Cervicalgia Poncho Garsia N.PDavidson 01/05/2019 G56.00 Carpal tunnel syndrome, unspecified upper Poncho Garsia N.PDavidson limb 01/05/2019 M51.37 Other intervertebral disc degeneration, Poncho Garsia N.P. lumbosacral region 01/05/2019 M25.559 Pain in unspecified hip Poncho Garsia N.P. 01/05/2019 M25.569 Pain in unspecified knee Poncho Garsia N.PDavidson 01/05/2019 M79.606 Pain in leg, unspecified Poncho Garsia N.PDavidson 01/05/2019 M79.639 Pain in unspecified forearm Poncho Garsia N.PDavidson 01/05/2019 F33.9 Major depressive disorder, recurrent, Poncho Garsia N.P. unspecified 01/05/2019 G47.00 Insomnia, unspecified Poncho Garsia N.PDavidson 01/05/2019 N80.3 Endometriosis of pelvic peritoneum Poncho Garsia N.PDavidson 01/05/2019 N76.1 Subacute and chronic vaginitis Poncho Garsia N.PDavidson 01/05/2019 Z90.710 Acquired absence of both cervix and uterus Poncho Garsia N.PDavidson 01/05/2019 N95.9 Unspecified menopausal and perimenopausal Poncho Garsia N.Peggy disorder 01/05/2019 R06.02 Shortness of breath Poncho Garsia N.P. 01/05/2019 R05 Cough Poncho Garsia N.PDavidson 01/05/2019 R09.81 Nasal congestion Poncho Garsia N.PDavidson 01/05/2019 G56.23 Lesion of ulnar nerve, bilateral upper limbs Poncho Garsia N.PDavidson 01/05/2019 K21.0 Gastro-esophageal reflux disease with Poncho Garsia N.P. esophagitis 01/05/2019 N89.8 Other specified noninflammatory disorders of Poncho Garsia N.P. vagina 01/05/2019 G43.101 Migraine with aura, not intractable, with Poncho Garsia N.P. status migrainosus 01/05/2019 M51.15 Intervertebral disc disorders with Pocnho Garsia N.P. radiculopathy, thoracolum 01/05/2019 R45.4 Irritability and anger Poncho Garsia N.PDavidson 01/05/2019 H00.025 Hordeolum internum left lower eyelid Radha Spears.PDavidson 01/02/2019 J44.9 Chronic obstructive pulmonary disease, Jose [...] M.D. 01/02/2019 N95.9 Unspecified menopausal and perimenopausal Jsoe Elmore M.D. disorder 01/02/2019 R06.02 Shortness of [...] 01/02/2019 H00.025 Hordeolum internum left lower eyelid Jose Elmore M.D. 12/27/2018 J44.9 Chronic obstructive pulmonary disease, Poncho Garsia N.PDavidson unspecified 12/27/2018 L20.9 Atopic dermatitis, unspecified Poncho Garsia N.PDavidson 12/27/2018 J30.9 Allergic rhinitis, unspecified Poncho Garsia N.P. 12/27/2018 H69.83 Other specified disorders of Eustachian Poncho Garsia N.P. tube, bilateral 12/27/2018 E55.9 Vitamin D deficiency, unspecified Poncho Garsia N.PDavidson 12/27/2018 F17.210 Nicotine dependence, cigarettes, Poncho Garsia N.Peggy uncomplicated 12/27/2018 M54.2 Cervicalgia Radha Spears.Peggy 12/27/2018 G56.00 Carpal tunnel syndrome, unspecified upper Poncho Garsia N.PDavidson limb 12/27/2018 M51.37 Other intervertebral disc degeneration, Poncho Garsia N.PDavidson lumbosacral region 12/27/2018 M25.559 Pain in unspecified hip Radha Spears.PDavidson 12/27/2018 M25.569 Pain in unspecified knee Radha Spears.PDavidson 12/27/2018 M79.606 Pain in leg, unspecified Poncho Garsia N.PDavidson 12/27/2018 M79.639 Pain in unspecified forearm Radha Spears.PDavidson 12/27/2018 F33.9 Major depressive disorder, recurrent, Poncho Garsia N.P. unspecified 12/27/2018 G47.00 Insomnia, unspecified Poncho Garsia N.PDavidson 12/27/2018 N80.3 Endometriosis of pelvic peritoneum Poncho Garsia NDavidsonPDavidson 12/27/2018 N76.1 Subacute and chronic vaginitis Poncho Garsia N.PDavidson 12/27/2018 Z90.710 Acquired absence of both cervix and uterus Poncho Garsia N.PDavidson 12/27/2018 N95.9 Unspecified menopausal and perimenopausal Poncho Garsia NSusan disorder 12/27/2018 R06.02 Shortness of breath Madie SpearsPDavidson 12/27/2018 R09.81 Nasal congestion Poncho Garsia N.PDavidson 12/27/2018 G56.23 Lesion of ulnar nerve, bilateral upper limbs Poncho Garsia NDavidsonPDavidson 12/27/2018 K21.0 Gastro-esophageal reflux disease with Poncho Garsai N.P. esophagitis 12/27/2018 N89.8 Other specified noninflammatory disorders of Poncho Garsia N.P. vagina 12/27/2018 G43.101 Migraine with aura, not intractable, with Poncho Garsia N.P. status migrainosus 12/27/2018 M51.15 Intervertebral disc disorders with Poncho Garsia N.P. radiculopathy, thoracolum 12/27/2018 J30.2 Other seasonal allergic rhinitis Madie SpearsPDavidson 12/27/2018 R45.4 Irritability and anger Madie SpearsPDavidson 12/27/2018 H00.025 Hordeolum internum left lower eyelid Radha Spears.PDavidson 12/04/2018 J44.9 Chronic obstructive pulmonary disease, Radha Spears.Peggy unspecified 12/04/2018 L20.9 Atopic dermatitis, unspecified Madie SpearsPDavidson 12/04/2018 J30.9 Allergic rhinitis, unspecified Poncho Garsia N.P. 12/04/2018 H69.83 Other specified disorders of Eustachian Poncho Garsia N.PDavidson tube, bilateral 12/04/2018 E55.9 Vitamin D deficiency, unspecified Poncho Garsia N.P. 12/04/2018 F17.210 Nicotine dependence, cigarettes, Poncho Garsia N.PDavidson uncomplicated 12/04/2018 M54.2 Cervicalgia Poncho Garsia N.PDavidson 12/04/2018 G56.00 Carpal tunnel syndrome, unspecified upper Poncho Garsia N.PDavidson limb 12/04/2018 M51.37 Other intervertebral disc degeneration, Poncho Garsia N.PDavidson lumbosacral region 12/04/2018 M25.559 Pain in unspecified hip Poncho Garsia N.PDavidson 12/04/2018 M25.569 Pain in unspecified knee Poncho Garsia N.P. 12/04/2018 M79.606 Pain in leg, unspecified Poncho Garsia N.P. 12/04/2018 M79.639 Pain in unspecified forearm Poncho Garsia N.PDavidson 12/04/2018 F33.9 Major depressive disorder, recurrent, Poncho Garsia N.PDavidson unspecified 12/04/2018 G47.00 Insomnia, unspecified Poncho Garsia N.PDavidson 12/04/2018 N80.3 Endometriosis of pelvic peritoneum Poncho Garsia N.PDavidson 12/04/2018 N76.1 Subacute and chronic vaginitis Poncho Garsia N.PDavidson 12/04/2018 Z90.710 Acquired absence of both cervix and uterus Poncho Garsia N.PDavidson 12/04/2018 N95.9 Unspecified menopausal and perimenopausal Poncho Garsia N.PDavidson disorder 12/04/2018 R06.02 Shortness of breath Poncho Garsia N.PDavidson 12/04/2018 R09.81 Nasal congestion Poncho Garsia N.PDavidson 12/04/2018 G56.23 Lesion of ulnar nerve, bilateral upper limbs Poncho Garsia N.PDavidson 12/04/2018 K21.0 Gastro-esophageal reflux disease with Poncho Garsia N.PDavidson esophagitis 12/04/2018 N89.8 Other specified noninflammatory disorders of Poncho Garsia N.Peggy vagina 12/04/2018 G43.101 Migraine with aura, not intractable, with Poncho Garsia N.PDavidson status migrainosus 12/04/2018 R11.0 Nausea Poncho Garsia, N.P. 12/04/2018 H66.93 Otitis media, unspecified, bilateral Poncho Garsia N.P. 12/04/2018 M51.15 Intervertebral disc disorders with Poncho Garsia N.Peggy radiculopathy, thoracolum 12/04/2018 J20.9 Acute bronchitis, unspecified [...] of Eustachian Poncho Garsia, N.P. tube, bilateral 11/29/2018 E55.9 Vitamin D deficiency, unspecified Poncho Garsia N.P. 11/29/2018 F17.210 Nicotine dependence, cigarettes, Poncho Garsia N.P. uncomplicated 11/29/2018 M54.2 Cervicalgia Poncho Garsia N.P. 11/29/2018 G56.00 Carpal tunnel syndrome, unspecified upper Poncho Garsia N.P. limb 11/29/2018 M51.37 Other intervertebral disc degeneration, Poncho Garsia N.PDavidson lumbosacral region 11/29/2018 M25.559 Pain in unspecified hip Poncho Garsia N.P. 11/29/2018 M25.569 Pain in unspecified knee Poncho Garsia N.P. 11/29/2018 M79.606 Pain in leg, unspecified Poncho Garsia N.P. 11/29/2018 M79.639 Pain in unspecified forearm Poncho Garsia N.P. 11/29/2018 F33.9 Major depressive disorder, recurrent, Poncho Garsia N.P. unspecified 11/29/2018 G47.00 Insomnia, unspecified Poncho Garsia N.P. 11/29/2018 N80.3 Endometriosis of pelvic peritoneum Poncho Garsia N.P. 11/29/2018 N76.1 Subacute and chronic vaginitis Poncho Garsia N.PDavidson 11/29/2018 Z90.710 Acquired absence of both cervix and uterus Poncho Garsia N.P. 11/29/2018 N95.9 Unspecified menopausal and perimenopausal Poncho Garsia N.PDavidson disorder 11/29/2018 R06.02 Shortness of breath Poncho Garsia N.P. 11/29/2018 R05 Cough Poncho Garsia N.P. 11/29/2018 R09.81 Nasal congestion Poncho Garsia N.P. 11/29/2018 G56.23 Lesion of ulnar nerve, bilateral upper limbs Poncho Garsia N.PDavidson 11/29/2018 K21.0 Gastro-esophageal reflux disease with Poncho Garsia N.PDavidson esophagitis 11/29/2018 N89.8 Other specified noninflammatory disorders of Poncho Garsia N.PDavidson vagina 11/29/2018 G43.101 Migraine with aura, not intractable, with Poncho Garsia N.Peggy status migrainosus 11/29/2018 R11.0 Nausea Poncho Garsia N.P. 11/29/2018 H66.93 Otitis media, unspecified, bilateral Poncho Garsia N.P. 11/29/2018 M51.15 Intervertebral disc disorders with Poncho Garsia N.Peggy radiculopathy, thoracolum 11/01/2018 J44.9 Chronic obstructive pulmonary disease, Poncho Garsia N.P. unspecified 11/01/2018 L20.9 Atopic dermatitis, unspecified Poncho Garsia N.PDavidson 11/01/2018 J30.9 Allergic rhinitis, unspecified Poncho Garsia N.P. 11/01/2018 H69.83 Other specified disorders of Eustachian Poncho Garsia N.PDavidson tube, bilateral 11/01/2018 E55.9 Vitamin D deficiency, unspecified Poncho Garsia N.P. 11/01/2018 F17.210 Nicotine dependence, cigarettes, Poncho Garsia N.P. uncomplicated 11/01/2018 M54.2 Cervicalgia Poncho Garsia N.P. 11/01/2018 G56.00 Carpal tunnel syndrome, unspecified upper Poncho Garsia N.PDavidson limb 11/01/2018 M51.37 Other intervertebral disc degeneration, Poncho Garsia N.PDavidson lumbosacral region 11/01/2018 M25.559 Pain in unspecified hip Poncho Garsia N.P. 11/01/2018 M25.569 Pain in unspecified knee Poncho Garsia N.P. 11/01/2018 M79.606 Pain in leg, unspecified Poncho Garsia N.P. 11/01/2018 M79.639 Pain in unspecified forearm Poncho Garsia N.P. 11/01/2018 F33.9 Major depressive disorder, recurrent, Poncho Garsia N.P. unspecified 11/01/2018 G47.00 Insomnia, unspecified Poncho Garsia N.P. 11/01/2018 N80.3 Endometriosis of pelvic peritoneum Poncho Garsia N.PDavidson 11/01/2018 N76.1 Subacute and chronic vaginitis Poncho Garsia N.P. 11/01/2018 Z90.710 Acquired absence of both cervix and uterus Poncho Garsia N.P. 11/01/2018 N95.9 Unspecified menopausal and perimenopausal Poncho Garsia N.PDavidson disorder 11/01/2018 R06.02 Shortness of breath Poncho Garsia N.P. 11/01/2018 R05 Cough Poncho Garsia N.P. 11/01/2018 R09.81 Nasal congestion Poncho Garsia N.P. 11/01/2018 G56.23 Lesion of ulnar nerve, bilateral upper limbs Poncho Garsia N.P. 11/01/2018 K21.0 Gastro-esophageal reflux disease with Radha Spears.Peggy esophagitis 11/01/2018 N89.8 Other specified noninflammatory disorders of Poncho Garsia N.PDavidson vagina 11/01/2018 G43.101 Migraine with aura, not intractable, with Poncho Garisa N.PDavidson status migrainosus 11/01/2018 R11.0 Nausea Poncho Garsia N.P. 11/01/2018 H66.93 Otitis media, unspecified, bilateral Poncho Garsia N.P. 10/16/2018 J44.9 Chronic obstructive pulmonary disease, Poncho Garsia N.P. unspecified 10/16/2018 L20.9 Atopic dermatitis, unspecified Poncho Garsia N.P. 10/16/2018 J30.9 Allergic rhinitis, unspecified Poncho Garsia N.P. 10/16/2018 H69.83 Other specified disorders of Eustachian Poncho Garsia N.P. tube, bilateral 10/16/2018 E55.9 Vitamin D deficiency, unspecified Poncho Garsia N.P. 10/16/2018 F17.210 Nicotine dependence, cigarettes, Poncho Garsia N.P. uncomplicated 10/16/2018 M54.2 Cervicalgia Poncho Garsia N.P. 10/16/2018 G56.00 Carpal tunnel syndrome, unspecified upper Poncho Garsia N.P. limb 10/16/2018 M51.37 Other intervertebral disc degeneration, Poncho Garsia, N.P. lumbosacral region 10/16/2018 M25.559 Pain in unspecified hip Poncho Garsia N.P. 10/16/2018 M25.569 Pain in unspecified knee Poncho Garsia N.P. 10/16/2018 M79.606 Pain in leg, unspecified Poncho Garsia N.P. 10/16/2018 M79.639 Pain in unspecified forearm Poncho Garsia N.P. 10/16/2018 F33.9 Major depressive disorder, recurrent, Poncho Garsia N.P. unspecified 10/16/2018 G47.00 Insomnia, unspecified Poncho Garsia N.P. 10/16/2018 N80.3 Endometriosis of pelvic peritoneum Poncho Garsia N.P. 10/16/2018 N76.1 Subacute and chronic vaginitis Poncho Garsia N.P. 10/16/2018 Z90.710 Acquired absence of both cervix and uterus Poncho Garsia N.P. 10/16/2018 N95.9 Unspecified menopausal and perimenopausal Poncho Garsia N.P. disorder 10/16/2018 R06.02 Shortness of breath Poncho Garsia N.P. 10/16/2018 R05 Cough Poncho Garsia N.P. 10/16/2018 R09.81 Nasal congestion Poncho Garsia N.P. 10/16/2018 G56.23 Lesion of ulnar nerve, bilateral upper limbs Poncho Garsia N.P. 10/16/2018 K21.0 Gastro-esophageal reflux disease with Poncho Garsia N.PDavidson esophagitis 10/16/2018 N89.8 Other specified noninflammatory disorders of Poncho Garsia N.P. vagina 10/16/2018 G43.101 Migraine with aura, not intractable, with Poncho Gasria NSusan status migrainosus 10/16/2018 R11.0 Nausea Poncho Garsia N.P. 10/16/2018 H66.93 Otitis media, unspecified, bilateral Madie SpearsPDavidson 10/05/2018 J44.9 Chronic obstructive pulmonary disease, Jose Elmore M.D. unspecified 10/05/2018 L20.9 Atopic dermatitis, unspecified Jose Elmore M.D. 10/05/2018 J30.9 Allergic rhinitis, unspecified Jose Elmore M.D. 10/05/2018 H69.83 Other specified disorders of Eustachian Jose Elmore M.D. tube, bilateral 10/05/2018 E55.9 Vitamin D deficiency, unspecified Jose Elmore M.D. 10/05/2018 F17.210 Nicotine dependence, cigarettes, Jose Elmore M.D. uncomplicated 10/05/2018 M54.2 Cervicalgia Jose Elmore M.D. 10/05/2018 G56.00 Carpal tunnel syndrome, unspecified upper Jose Elmore M.D. limb 10/05/2018 M51.37 Other intervertebral disc degeneration, Jose Elmore M.D. lumbosacral region 10/05/2018 M25.559 Pain in unspecified hip Jose Elmore M.D. 10/05/2018 M25.569 Pain in unspecified knee Jose Elmore M.D. 10/05/2018 M79.606 Pain in leg, unspecified Jose Elmore M.D. 10/05/2018 M79.639 Pain in unspecified forearm Jose Elmore M.D. 10/05/2018 F33.9 Major depressive disorder, recurrent, Jose Elmore M.D. unspecified 10/05/2018 G47.00 Insomnia, unspecified Jose Elmore M.D. 10/05/2018 N80.3 Endometriosis of pelvic peritoneum Jose Elmore M.D. 10/05/2018 N76.1 Subacute and chronic vaginitis Jose Elmore M.D. 10/05/2018 Z90.710 Acquired absence of both cervix and uterus Jose Elmore M.D. 10/05/2018 N95.9 Unspecified menopausal and perimenopausal Jose Elmore M.D. disorder 10/05/2018 R06.02 Shortness of breath Jose Elmore M.D. 10/05/2018 R05 Cough Jose Elmore M.D. 10/05/2018 R09.81 Nasal congestion Jose Elmore M.D. 10/05/2018 G56.23 Lesion of ulnar nerve, bilateral upper limbs Jose Elmore M.D. 10/05/2018 K21.0 Gastro-esophageal reflux disease with Jose Elmore M.D. esophagitis 10/05/2018 N89.8 Other specified noninflammatory disorders of Jose Elmore M.D. vagina 09/27/2018 J44.9 Chronic obstructive pulmonary disease, Poncho Garsia N.P. unspecified 09/27/2018 L20.9 Atopic dermatitis, unspecified Poncho Garsia N.PDavidson 09/27/2018 J30.9 Allergic rhinitis, unspecified Poncho Garsia N.PDavidson 09/27/2018 H69.83 Other specified disorders of Eustachian Poncho Garsia N.P. tube, bilateral 09/27/2018 E55.9 Vitamin D deficiency, unspecified Poncho Garsia N.PDavidson 09/27/2018 F17.210 Nicotine dependence, cigarettes, Poncho Garsia N.P. uncomplicated 09/27/2018 M54.2 Cervicalgia Poncho Garsia N.P. 09/27/2018 G56.00 Carpal tunnel syndrome, unspecified upper Poncho Garsia N.P. limb 09/27/2018 M51.37 Other intervertebral disc degeneration, Poncho Garsia N.P. lumbosacral region 09/27/2018 M25.559 Pain in unspecified hip Poncho Garsia N.P. 09/27/2018 M25.569 Pain in unspecified knee Poncho Garsia N.P. 09/27/2018 M79.606 Pain in leg, unspecified Poncho Garsia N.P. 09/27/2018 M79.639 Pain in unspecified forearm Poncho Garsia N.P. 09/27/2018 F33.9 Major depressive disorder, recurrent, Poncho Garsia N.P. unspecified 09/27/2018 G47.00 Insomnia, unspecified Poncho Garsia N.P. 09/27/2018 N80.3 Endometriosis of pelvic peritoneum Poncho Garsia N.P. 09/27/2018 N76.1 Subacute and chronic vaginitis Poncho Garsia N.P. 09/27/2018 Z90.710 Acquired absence of both cervix and uterus Poncho Garsia N.P. 09/27/2018 N95.9 Unspecified menopausal and perimenopausal Poncho Garsia N.P. disorder 09/27/2018 R06.02 Shortness of breath Poncho Garsia N.P. 09/27/2018 R05 Cough Poncho Garsia N.P. 09/27/2018 R09.81 Nasal congestion Poncho Garsia N.P. 09/27/2018 G56.23 Lesion of ulnar nerve, bilateral upper limbs Poncho Garsia N.P. 09/27/2018 K21.0 Gastro-esophageal reflux disease with Poncho Garsia N.PDavidson esophagitis 09/27/2018 N89.8 Other specified noninflammatory disorders of Poncho Garsia N.P. vagina 09/27/2018 H92.03 Otalgia, bilateral Poncho Garsia N.P. 09/27/2018 H66.93 Otitis media, unspecified, bilateral Poncho Garsia N.P. 09/27/2018 J02.9 Acute pharyngitis, unspecified Poncho Garsia N.P. 09/27/2018 J20.9 Acute bronchitis, unspecified Poncho Garsia N.P. 09/27/2018 Z12.31 Encounter for screening mammogram for Radha Spears.Peggy malignant neoplasm of 09/27/2018 M67.432 Ganglion, left wrist Poncho Garsia N.P. 09/27/2018 Z68.27 Body mass index (BMI) 27.0-27.9, adult Poncho Garsia N.P. 09/25/2018 J44.9 Chronic obstructive pulmonary disease, Poncho Garsia, N.P. unspecified 09/25/2018 L20.9 Atopic dermatitis, unspecified Poncho Garsia N.P. 09/25/2018 J30.9 Allergic rhinitis, unspecified Poncho Garsia N.P. 09/25/2018 H69.83 Other specified disorders of Eustachian Poncho Garsia N.P. tube, bilateral 09/25/2018 E55.9 Vitamin D deficiency, unspecified Poncho Garsia, N.P. 09/25/2018 F17.210 Nicotine dependence, cigarettes, Poncho Garsia N.P. uncomplicated 09/25/2018 M54.2 Cervicalgia Poncho Garsia N.P. 09/25/2018 G56.00 Carpal tunnel syndrome, unspecified upper Poncho Garsia N.P. limb 09/25/2018 M51.37 Other intervertebral disc degeneration, Poncho Garsia N.P. lumbosacral region 09/25/2018 M25.559 Pain in unspecified hip Poncho Garsia N.P. 09/25/2018 M25.569 Pain in unspecified knee Poncho Garsia N.P. 09/25/2018 M79.606 Pain in leg, unspecified Poncho Garsia N.P. 09/25/2018 M79.639 Pain in unspecified forearm Poncho Garsia N.P. 09/25/2018 F33.9 Major depressive disorder, recurrent, Poncho Garsia N.P. unspecified 09/25/2018 G47.00 Insomnia, unspecified Poncho Garsia N.P. 09/25/2018 N80.3 Endometriosis of pelvic peritoneum Poncho Garsia N.P. 09/25/2018 N76.1 Subacute and chronic vaginitis Poncho Garsia N.P. 09/25/2018 Z90.710 Acquired absence of both cervix and uterus Poncho Garsia N.P. 09/25/2018 N95.9 Unspecified menopausal and perimenopausal Poncho Garsia N.P. disorder 09/25/2018 R06.02 Shortness of breath Poncho Garsia N.P. 09/25/2018 R05 Cough Poncho Garsia N.P. 09/25/2018 R09.81 Nasal congestion Poncho Garsia N.P. 09/25/2018 G56.23 Lesion of ulnar nerve, bilateral upper limbs Poncho Garsia N.P. 09/25/2018 K21.0 Gastro-esophageal reflux disease with Poncho Garsia N.P. esophagitis 09/25/2018 N89.8 Other specified noninflammatory disorders of Poncho Garsia N.P. vagina 09/25/2018 H92.03 Otalgia, bilateral Poncho Garsia N.P. 09/25/2018 H66.93 Otitis media, unspecified, bilateral Madie SpearsP. 09/25/2018 J02.9 Acute pharyngitis, unspecified Poncho Garsia N.P. 09/25/2018 J20.9 Acute bronchitis, unspecified Poncho Garsia N.P. 09/25/2018 Z12.31 Encounter for screening mammogram for Poncho Garsia N.P. malignant neoplasm of 09/25/2018 Z68.27 Body mass index (BMI) 27.0-27.9, adult Poncho Garsia N.P. Plan of Treatment 03/09/2019 - Poncho Garsia N.P.Z11.1 Encounter for screening for respiratory tuberculosisComments:F/U IN 48-72 H FOR READING PPD IMMUNIZATION GIVEN ( SEE LIST )BENEFITS ,RISK AND SIDE EFFECTS DISSCUSED HANDOUT GZHJED60.9 Chronic obstructive pulmonary disease, unspecifiedComments:INCREASE PO RSVBHZFXGK85.9 Atopic dermatitis, unspecifiedComments:SKIN CARE INSTRUCTIONS LOTION OR BABY OIL 2-3 APPLICATION PER DAYUSE MOISTURIZING SOAPAVOID PROLONGED WATER EXPOSUREAVOID USING HOT WATER IN AZQJXVV40.9 Allergic rhinitis, unspecifiedComments:INCREASE PO FLUID USE ANTIHISTAMINE PRN SECOND HAND SMOKING AVOIDANCE SMOKING PBJUQYNVKH76.83 Other specified disorders of Eustachian tube , bilateralComments:INCREASE PO FLUID USE ANTIHISTAMINE PRNTYLENOL OR MOTRIN PRN AVOID SECOND HAND SMOKING SMOKING CESSATION [id number] Vitamin D deficiency, unspecifiedComments:INCREASE EXPOSURE TO SUNREVIEW OF DIETF17.210 Nicotine dependence, cigarettes, uncomplicatedComments:SMOKING CESSATION QSTDJBTQUGGE52.2 CervicalgiaComments:EXERCISE/HEAT /MESSAGEAVOID HEAVY LIFTING WT LOSSTYLENOL OR MOTRIN PRN DUR GATOIDMS36.00 Carpal tunnel syndrome, unspecified upper limbComments:WRIST SPLINTEXERCISE/HEAT/MESSAGE F/U WITH ORTHO PRNM51.37 Other intervertebral disc degeneration, lumbosacral regionComments: EXERCISE/HEAT /MESSAGEAVOID HEAVY LIFTING WT LOSSTYLENOL OR MOTRIN PRN DUR WZHIIPCZ46.559 Pain in unspecified hipComments:EXERCISE/HEAT/MESSAGETYLENOL OR MOTRIN PRNAVOID HEAVY LIFTINGWT LOSSDUR JYDAYUMZ67.569 Pain in unspecified kneeComments:EXERCISE/HEAT /MESSAGEAVOID HEAVY LIFTING WT LOSSTYLENOL OR MOTRIN PRN DUR RZIZHOIZ71.606 Pain in leg, unspecifiedComments:TYLENOL OR MOTRIN PRN EXERCISE/HEAT/MESSAGE DUR QVOCIIBJ62.639 Pain in unspecified forearmComments: TYLENOL OR MOTRIN PRN EXERCISE/HEAT/MESSAGE DUR GXNLVVOG32.9 Major depressive disorder, recurrent, unspecifiedComments:COUNCELLING AND REASSURANCE RELAXATION TECHNIQUES DISCUSSED COUNSELED RE: STRESSORS IN LIFEG47.00 Insomnia, unspecifiedComments:COUNCELLING AND REASSURANCE RELAXATION TECHNIQUES DISCUSSED COUNSELED RE: STRESSORS IN LIFE TYLENOLPM OR MOTRIN PM PRNN80.3 Endometriosis of pelvic peritoneumComments:RESOLVEDS/P LAZARO F/U WITH ENVIRONMENTAL SAFETY SPECIALIST PRNN76.1 Subacute and chronic vaginitisComments:DRILLING FIELD PROFESSIONAL TOBHCRVB70.710 Acquired absence of both cervix and uterusComments:F/U WITH ENVIRONMENTAL SAFETY SPECIALIST PRNN95.9 Unspecified menopausal and perimenopausal disorderComments:COUNCELLING AND XLKAMPNHQSOTZITX63.02 Shortness of breathComments:INCREASE PO FLUIDRESTSMOKING [id number] CoughComments:FFTTECYKY99.81 Nasal congestionComments:QSLMSLKNT75.23 Lesion of ulnar nerve, bilateral upper limbsComments:EXERCISE/HEAT/MESSAGE F/U WITH ORTHO PRNK21.0 Gastro-esophageal reflux disease with esophagitisComments:AVOID CAFFEINE, ETOH AND SPICY FOODSTUMS OR MYLANTA PRN CALL WITH PROBLEMS OR CONCERNSTOBACCO USE FKSVWJAHLY86.8 Other specified noninflammatory disorders of vaginaComments:OBSERVE AND FTZPLOCUG81.101 Migraine with aura, not intractable, with status mthsmclikjfV83.15 Intervertebral disc disorders with radiculopathy, thoracolumbar regionComments:F/U WITH COKEEI44.4 Irritability and angerComments:COUNCELLING AND REASSURANCE RELAXATION TECHNIQUES DISCUSSEDCOUNSELED RE: STRESSORS IN LIFE AVOID ALLENERGY/HIGH CAFFEINE DRINKS Functional Status Functional Condition Comment Date Status Glasses Active Bifocal glasses Active Mental Status Description No Information Available Referrals Refer to Reason for Referral Status Appt Date [facility] continuing care, PT OVER DUE FOR FOLLOW UP Closed [address] [place] [address] [phone] [place] [employer] Or Work Closed 12/26/2018 [address] [facility] [place] [address] [phone] Gary Loaiza M.D BILATERAL HIP PAIN Closed [address] [place], [place] [id number] [phone] [facility] DISC DEGENERATION Closed 11/21/2018 [address], [address] [place] [address] [phone]
[2019-05-01 15:47] VITALS: BP 129/72
--- NOTE | 2019-05-01 16:13 | UC ---
Back Pain HPI - HPI Summary HPI Summary: 48-year-old woman comes in with chief complaint of left hip and thigh pain after 2 falls today. Patient has a long history of low back pain and especially left sciatica with chronic left leg numbness and weakness. She seen a spinal surgeon for this condition. She has a spinal injection scheduled for May 11, 2019 for this condition. This will be her third injection for pain control. Patient tripped and fell down 2 stairs initially and then later today was going over a dog gate in her house and her toe got caught and she fell. Each time she injured her left hip and thigh. She is pain with palpation and ambulation. She has not taken anything for pain. She is chronically on Mobic. She denies being on Zanaflex at this time.. Patient has chronic weakness and numbness no complaint of anything getting worse she also states that she has a headache which she's had that for months and this fall did make the headache worse. She's also some right sided neck pain gets worse with movement. - History of Current Complaint Chief Complaint: UCLowerExtremity Stated Complaint: PT FELL, BACK/NECK PAIN Time Seen by Provider: 05/01/19 15:36 Hx Last Menstrual Period: 3yrs Pain Intensity: 8 - Allergies/Home Medications Allergies/Adverse Reactions: Allergies Allergy/AdvReac Type Severity Reaction Status Date / Time No Known Allergies Allergy Verified 05/01/19 15:41 PMH/Surg Hx/FS Hx/Imm Hx Previously Healthy: Yes - CHRINIC LOW BACK PAIN AND LUMBAR RADICULOPATHY - Surgical History Surgical History: Yes Surgery Procedure, Year, and Place: APPY. TOTAL HYSTERECTOMY. LEFT OOPHERECTOMY. KNEE MENISCUS REPAIR--RIGHT. CARPAL TUNNEL--RIGHT WRIST. bladder sling - Family History Known Family History: Positive: Unknown Negative: Diabetes - Social History Alcohol Use: None Substance Use Type: None Smoking Status (MU): Current Every Day Smoker Type: Cigarettes Amount Used/How Often: 1/2 PPD Length of Time of Smoking/Using Tobacco: 28 YRS Have You Smoked in the Last Year: Yes When Did the Patient Quit Smoking/Using Tobacco: 6 DAYS AGO Household Exposure Type: Cigarettes - Immunization History Vaccination Up to Date: Yes Review of Systems All Other Systems Reviewed And Are Negative: Yes Constitutional: Positive: Negative Skin: Positive: Negative Eyes: Positive: Negative ENT: Positive: Negative Respiratory: Positive: Negative Cardiovascular: Positive: Negative Gastrointestinal: Positive: Negative Genitourinary: Positive: Negative Motor: Positive: Other - SEE HPI Neurovascular: Positive: Other - SEE HPI Musculoskeletal: Positive: Other: - SEE HPI Neurological: Positive: Headache Psychological: Positive: Negative Is Patient Immunocompromised?: No Physical Exam Triage Information Reviewed: Yes Appearance: Well-Appearing, Well-Nourished, Pain Distress - Mild with range of motion of the left leg and examination of the left leg Vital Signs: Initial Vital Signs Temp 99.2 F 05/01/19 15:42 Pulse 79 05/01/19 15:42 Resp 16 05/01/19 15:42 BP 129/72 05/01/19 15:42 Pulse Ox 100 05/01/19 15:42 Vital Signs Reviewed: Yes Eye Exam: Normal Eyes: Positive: Conjunctiva Clear Neck: Positive: Other: - Mild tenderness to palpation on the right posterior lateral aspect of the neck. Respiratory: Positive: Lungs clear, Normal breath sounds, No respiratory distress Cardiovascular: Positive: RRR Musculoskeletal: Positive: Other: - Tender to palpation right posterior lateral neck. Neck is full range of motion no midline tenderness. Arms have full range of motion full-strength. Patient's tender to palpation over the left thigh and hip. Legs have full range of motion. Normal sensation to touch. Left leg on exam does appear to be slightly weaker than the right leg. Patient does report chronic left leg weakness. Neurological: Positive: Alert Psychological: Positive: Age Appropriate Behavior Skin Exam: Normal Back Pain Course/Dx - Course Course Of Treatment: Patient has a chronic history of low back pain and left sciatica and is being treated by a spinal surgeon to include injections for pain. By history does not appear that there is any new neurologic deficit here today. We'll treat with Flexeril patient's cardiac Mobic. I asked her if she was on the Zanaflex and she said she was not on Zanaflex. Also wrote a prescription for lidocaine patches. I recommended follow-up with her primary care doctor and her spinal surgeon and let her know that if things got worse with weakness or numbness she needs to get reevaluated. - Differential Dx/Diagnosis Provider Diagnosis: Left sided sciatica, Contusion of left hip and thigh Discharge ED - Sign-Out/Discharge Documenting (check all that apply): Patient Departure All imaging exams completed and their final reports reviewed: No Studies - Discharge Plan Condition: Stable Disposition: HOME Prescriptions: Cyclobenzaprine TAB* [Flexeril 10 MG TAB*] 10 mg PO TID PRN #15 tab MDD 3 PRN Reason: Pain - Moderate Lidocaine PATCH 5%* [Lidoderm 5% Patch*] 2 patch TRANSDERM DAILY #10 patch Patient Education Materials: Sciatica (ED), Hip Contusion (ED) Forms: *Work Release Referrals: Jose Elmore MD [Primary Care Provider] - Doreen LARSON,Yan Jacobo [Medical Doctor] - Additional Instructions: FOLLOW UP WITH YOUR PRIMARY DOCTOR AND SPINAL SURGEON. GET REEVALUATED SOONER IF NOT IMPROVING OR WORSE; PAIN, WEAKNESS, NUMBNESS, DIFFICULTY CONTROLLING BOWEL OR BLADDER OR ANY QUESTIONS OR CONCERNS. - Billing Disposition and Condition Condition: STABLE Disposition: Home
== END 2019-05-01 16:24 | disposition home or self-care (01) ==
LOC: UCCORT 15:18
DX: S70.02XA Contusion of left hip, initial encounter (principal); S70.12XA Contusion of left thigh, initial encounter; R20.0 Anesthesia of skin; M54.42 Lumbago with sciatica, left side; G89.29 Other chronic pain; R53.1 Weakness; M54.2 Cervicalgia; F17.210 Nicotine dependence, cigarettes, uncomplicated; W10.8XXA Fall (on) (from) other stairs and steps, initial encounter; W23.1XXA Caught, crushed, jammed, or pinched between stationary objects, initial encounter; Y92.009 Unspecified place in unspecified non-institutional (private) residence as the place of occurrence of the external cause
CPT/HCPCS: 99212; G0463

== ENCOUNTER 2020-10-17 10:47 | Observation (INO) ==
[~2020-10-17 10:47] MED LIST: Buffered Lidocaine 1% SYRIN 1 ml INTRADERM ONE; Lactated Ringers 1000 ml BAG 1,000 ML IV SCH; ceFAZolin 2 GM PREMIX 2 GM/50 ML BAG ONE
[2020-10-17] MEDS ORDERED: Lidocaine 2% PF 5 ML VIAL ONE (10:53)
[2020-10-17] MEDS ORDERED: Propofol 10 MG/ML 20 ML BTL ONE (10:53)
[2020-10-17] MEDS ORDERED: Dexamethasone IV 4 MG/ML VIAL 1 ml VIAL ONE (10:54)
[2020-10-17] MEDS ORDERED: Ondansetron 4 mg VIAL 2 MG/ML 2 ml VIAL ONE (10:54)
[2020-10-17] MEDS ORDERED: Ketamine HCL 50 mg/ml 10 ml VIAL (500 MG) ONE (11:01)
[2020-10-17] MEDS ORDERED: EPHEDrine (Pressors) 50 MG/ML VIAL ONE (11:40)
[2020-10-17] MEDS ORDERED: fentaNYL 250 mcg/5 ml 50 MCG/ML 5 ml VIAL (250 MCG) ONE (12:54)
[2020-10-17] MEDS ORDERED: Rocuronium 50 mg VIAL 10 mg/ml 5 ml VIAL (50 mg) ONE (12:54)
[2020-10-17] MEDS ORDERED: Ropivacaine 5 MG/ML 20 ML VIAL 0.5% (100 MG) ONE (12:55)
[2020-10-17] MEDS ORDERED: Midazolam 2 mg/2 ml VIAL 1 mg/ml 2 ml VIAL (2 mg) ONE (13:26)
[2020-10-17] MEDS ORDERED: Phenylephrine 40 mcg/mL 10mL (400mcg) SYRINGE ONE (13:53)
[2020-10-17] MEDS ORDERED: HYDROmorphone 1 MG/1 ML SYRINGE ONE (14:05)
[2020-10-17] MEDS ORDERED: fentaNYL 100 mcg/2 ml 50 MCG/ML VIAL ONE ×2 (16:14→16:24)
[2020-10-17] MEDS ORDERED: Ondansetron 4 mg VIAL 2 MG/ML 2 ml VIAL IV PRN (16:19)
[2020-10-17] MEDS ORDERED: Lactulose 30 ml UDC PO PRN (16:19)
[2020-10-17] MEDS ORDERED: diPHENhydraMINE 25 mg TAB PO PRN (16:19)
[2020-10-17] MEDS ORDERED: diPHENhydraMINE IV 50 MG/ML 1 ml VIAL (BENADRYL) IV PRN (16:19)
[2020-10-17] MEDS ORDERED: Morphine 2 MG/ML SYRINGE IV PRN (16:19)
[2020-10-17] MEDS ORDERED: Ondansetron ODT 4 mg TAB 4 MG TAB PO PRN (16:19)
[2020-10-17] MEDS ORDERED: Magnesium Hydroxide LIQ 30 ML UDC PO PRN (16:19)
[2020-10-17] MEDS ORDERED: Albuterol HFA INHALER 8 gm MDI INH PRN (16:23)
[2020-10-17] MEDS: fentaNYL 100 mcg/2 ml 50 MCG/ML VIAL IV PRN ×2 (16:24→16:33)
[2020-10-17] MEDS ORDERED: Morphine 4 MG/ML VIAL (1 ml) ONE (16:55)
[2020-10-17] MEDS: Morphine 4 MG/ML VIAL (1 ml) IV PRN ×2 (16:58→17:24)
[2020-10-17] MEDS ORDERED: Lactated Ringers 1000 ml BAG 1,000 ML IV SCH (17:00)
[2020-10-17] MEDS: oxyCODONE/Acetamin 5/325 mg TAB PO PRN (20:08)
[2020-10-17] MEDS: Magnesium Hydroxide LIQ 30 ML UDC PO SCH (20:08)
[2020-10-17] MEDS: ceFAZolin 1 GM ADVAN 1 GM in NS 0.9% 50 ML 50 ML IVPB SCH (22:03)
[2020-10-18] MEDS: ceFAZolin 1 GM ADVAN 1 GM in NS 0.9% 50 ML 50 ML IVPB SCH ×2 (05:23→12:36)
[2020-10-18] MEDS: oxyCODONE/Acetamin 5/325 mg TAB PO PRN (05:24)
[2020-10-18 05:36] LABS: Hematocrit 27 % (35-47); Mean Platelet Volume 8.2 fL (7.4-10.4); Platelet Count 278 10^3/uL (150-450)
[2020-10-18 06:00] LABS: Calcium 8.4 mg/dL (8.6-10.3); EGFR African American 107.2 (>60); EGFR Non-African American 88.6 (>60); Potassium 4.5 mmol/L (3.5-5.0)
[2020-10-18] MEDS ORDERED: Vitamin THERAPEUTIC TAB PO SCH (09:00)
[2020-10-18] MEDS: Magnesium Hydroxide LIQ 30 ML UDC PO SCH (09:44)
[2020-10-18 11:12] VITALS: BP 105/50
== END 2020-10-18 15:00 | disposition home or self-care (01) ==
LOC: SSU 10:47 → OR 10:47 → EDSTATUS 15:15
PROVIDERS: ADMIT Orthopaedic Surgery Adult Reconstructive Orthopaedic Surgery; ATTEND Orthopaedic Surgery Adult Reconstructive Orthopaedic Surgery